=== PATIENT | female | born 1945 | race Caucasian/White ===

== ENCOUNTER → 2018-09-22 15:44 | Outpatient (CLI) | payer MEDICARE, SELFPAY ==
--- NOTE | 2018-09-22 15:55 | XR_ITS ---
XR hand RT min 3V, XR hand LT min 3V HISTORY: Polyarthralgia Hand pain and swelling ORDERING PHYSICIAN: Andrew Monson MD PATIENT AGE: 73 years COMPARISON: Previous left wrist April 2016 TECHNIQUE: Right hand : PA, Oblique & Lateral views right hand Left hand :: PA, Oblique & Lateral leftHand LEFT HAND Degenerative changes are most pronounced at the first carpal-metacarpal joint. There is been progression of degenerative arthritic changes here since 2016... Progressive Hypertrophic changes with additional sclerosis about the narrowed joint space. . Mild progressive Degenerative changes first MCP joint most evident at its lateral/radial aspect.. Minimal Hypertrophic features about along its radial margin. . Mild degenerative changes at the IP joint of thumb again narrowing the lateral aspect as well, no marginal spurring changes from its radial/lateral margin. There are degenerative changes at the fingers involving the DIP joints & PIP joints. DIP joints: Joint space narrowing most pronounced at fifth finger fifth finger. Hypertrophic changes are most notable from dorsal aspect of the second and third DIP joint PIP joints. Arthritic changes over less evident at this level. Mild hypertrophic changes from dorsal aspect of second & third PIP joint... No periarticular erosive changes seen at the left hand. Bones well mineralized Distal radius & ulna appear satisfactory. There is slight progressive calcification this proximal to the triquetrum overlying and towards the triangle fibrocartilage. But I believe positioning/projection accounts for the rotated appearance of the scaphoid on frontal image. . ---IMPRESSION.---Left hand Degenerative arthritic changes left hand have shown slight progression since 2015 left wrist study. ... Most pronounced findings arthritic changes at first carpal-metacarpal joint. .... Mild/moderate Degenerative arthritic changes DIP joints as detailed in text;. & Also mild DJD PIP joint of 2nd & 3rd fingers .... With Mild /moderate arthritic changes lateral aspect of IP joint of thumb & first MCP joint RIGHT HAND No fracture or dislocation. .. Degenerative changes are most notable at first carpal-metacarpal joint. Joint space narrowing and sclerosis with some hypertrophic changes arising from the trapezium about this joint seen particularly on the oblique view. Only scant narrowing and minor marginal osteophyte formation is seen from the radial aspect of the IP joint of thumb and less evident at the first MCP joint. Degenerative arthritic changes at DIP joints-most pronounced posterior hypertrophic buttress seen at second finger/index finger DIP. Also narrowing with trace dorsal spurring/ hypertrophic changes at third DIP joint. The Fourth & fifth PIP joint are fairly well-maintained Mild arthritic changes seen throughout IP joints.. Joint space Narrowing at third DIP joint. Mild hypertrophic changes along the posterior aspect of the second & third PIP joint. . No periarticular erosions are well mineralized. No periarticular osteoporosis likely old fracture ulnar styloid with 5 mm fragment just distal to this area. . ---IMPRESSION---right hand Degenerative arthritic changes Right Hand. ... With Most pronounced arthritic changes at First Carpal Metacarpal Joint. .... Also developing osteoarthritic changes at DIP joints (most notable index and long finger DIP) as well as mild arthritic changes at PIP joints;.. ... Only mild arthritic changes radial aspect first MCP joint & IP joint of thumb here at right hand No. periArticular erosions at either right or left hand.
== END ==
PROVIDERS: PCP Family Medicine; Visit Provider Family Medicine
DX: M25.50 Pain in unspecified joint (principal); M79.641 Pain in right hand; M79.642 Pain in left hand
CPT/HCPCS: 73130

== ENCOUNTER → 2019-03-30 15:16 | Outpatient (CLI) | payer MEDICARE, SELFPAY ==
--- NOTE | 2019-03-30 15:23 | XR_ITS ---
PROCEDURE: XR DEXA AXIAL SKELETON CLINICAL HISTORY: OSTEOPENIA COMPARISON: No exams were available for comparison FINDINGS: L1-L4 density is 1.436 grams/centimeters sq with a T-score of 2.1 Left femoral neck density is 0.780 grams/centimeters sq with a T-score of -1.9. IMPRESSION: Osteopenia with moderate fracture risk. Treatment advised. Suggest follow-up exam March 2021 Dictated by: Rey Dsouza MD 03/30/2019 16:37 Electronically signed by Rey Dsouza MD in [place] 03/30/2019 16:37
== END ==
PROVIDERS: PCP Family Medicine; Visit Provider Family Medicine
DX: M85.89 Other specified disorders of bone density and structure, multiple sites (principal)
CPT/HCPCS: 77080

== ENCOUNTER → 2019-07-03 11:42 | Outpatient (CLI) | payer MEDICARE, SELFPAY ==
--- NOTE | 2019-07-03 11:47 | XR_ITS ---
PROCEDURE: XR KNEE LT 3V CLINICAL INDICATION: LT KNEE PAIN COMPARISON: No exams were available for comparison FINDINGS: Bone density shows mild osteopenia. There is mild narrowing the patellofemoral joint space with small posterior patellar spurs. The other joint spaces are normal. There is no acute fracture or joint effusion. IMPRESSION: Osteopenia. No acute abnormality. Mild arthritic change patellofemoral joint. Dictated by: Stanton Gordon 07/03/2019 12:56 Electronically signed by Stanton Gordon in [place] 07/03/2019 12:56
== END ==
PROVIDERS: PCP Family Medicine; Visit Provider Family Medicine
DX: M25.562 Pain in left knee (principal)
CPT/HCPCS: 73562

== ENCOUNTER → 2019-07-09 12:42 | Outpatient (CLI) | payer MEDICARE, SELFPAY ==
--- NOTE | 2019-07-09 12:45 | MR_ITS ---
PROCEDURE: MR LUMBAR SPINE WO CON CLINICAL INDICATION: LUMBAGO WITH SCIATICA LEFT SIDE, OTHER CHRONIC PAIN Low back pain for years which is worsening, left leg pain and tingling COMPARISON: [id number] XR ribs RT min 3V w CXR1V from 04/27/2018 TECHNIQUE: Standard multiplanar multiecho sequences are performed without contrast. 3-D MIP and myelographic images are also rendered and reviewed FINDINGS: There may be a transitional segment at the lumbosacral junction. This is labeled as L5. Attention should be made to this finding if there is any intervention planned. Review of previous rib detail show 11 sets of normal ribs with possible hypoplastic rib on the right at T12. Spinal cord ends at the T12-L1 level. No acute fracture or dislocation There is lumbar scoliosis convex left with multilevel degenerative disc disease endplate hypertrophic change and facet and ligamentum hypertrophy. L1-L2: Bulging disc slightly eccentric toward the right with minimal right paracentral disc protrusion with right lateral recess and foraminal narrowing. There are type 1 endplate changes at L1-L2 L2-L3: Degenerate disc disease with bulging disc eccentric toward the right with facet ligamentum hypertrophy with bilateral lateral recess and foraminal narrowing. The lateral recess narrowing is slightly more prominent on the right at this level. L3-L4: Degenerate disc disease with bulging disc with severe facet ligamentum hypertrophy with severe left lateral recess and foraminal narrowing and moderate right lateral recess and severe right foraminal narrowing. Type 1 endplate changes at L3-L4 more prominent on the left. There narrowing of the canal at L3-L4 L4-5: Degenerate disc disease. There is 8 mm anterolisthesis of L4 with facet and ligamentum hypertrophy with bilateral lateral recess and foraminal narrowing. L5-S1: Unremarkable. No extruded herniated disc evident. IMPRESSION: 1. Abnormal MRI lumbar spine with lumbar scoliosis convex left with multilevel degenerative disc disease with bulging disc along with facet ligamentum hypertrophy a with bilateral lateral recess and foraminal narrowing. PLEASE SEE ABOVE FOR DETAILED DESCRIPTION AT EACH LEVEL. Endplate changes are present. 2. No herniated disc evident. 3. Transitional segment at the lumbosacral junction labeled as L5. Please correlate accordingly if any intervention is planned. Dictated by: Rey Dsouza MD 07/10/2019 10:06 Electronically signed by Rey Dsouza MD in [place] 07/10/2019 10:06
== END ==
PROVIDERS: PCP Family Medicine; Visit Provider Family Medicine
DX: M54.42 Lumbago with sciatica, left side (principal); G89.29 Other chronic pain
CPT/HCPCS: 72148; 76376

== ENCOUNTER → 2019-08-10 13:48 | Outpatient (POV) | payer MEDICARE, SELFPAY ==
[2019-08-10 14:32] VITALS: BP 149/98; PULSE 87; RESP 18; O2SAT 99; BMI 33.7
--- NOTE | 2019-08-11 09:09 | HMH.PMCON ---
Assessment and Plan (1) Degenerative joint disease (DJD) of lumbar spine Current visit: Yes Status: Chronic Category: Medical Code(s): M47.816 - Spondylosis without myelopathy or radiculopathy, lumbar region (2) Spinal stenosis Current visit: Yes Status: Chronic Qualifiers: Neurogenic claudication status: with neurogenic claudication Category: Medical Code(s): M48.00 - Spinal stenosis, site unspecified - Assessment and plan all Dx Assessment and Plan for all problems:: We will set the patient up for lumbar epidural steroid injection and epidurogram to determine if she is a mild candidate. I gave her information in regards to both procedures. I answered all of her questions. She is not on any anticoagulation therapy. I will follow-up with her after her epidurogram reassess her symptoms at that time she is been instructed to call the office if she has any issues prior to her next appointment. Dr. Araiza has reviewed this note and agrees with this plan of care. This note was dictated using voice recognition software and may contain errors or omissions HPI - Data of Consult Consult date: 08/10/19 Requesting Physician: Milana Campbell APRN Primary Care Provider: Andrew Monson MD - Consult Narrative Reason for consult: Back pain, leg pain History of present illness: Ms. Shelton is a 73 year old female who presented today for consultation for low back and leg pain. Your pain patient has had low back pain for several years. She is had epidurals in the past which were not beneficial for her. She rates her pain 8 out of 10 mostly when she standing and walking is when it increases. She finds herself leaning forward. She does have an MRI showing ligamentum flavum hypertrophy. Patient and I discussed potential mild procedure. Patient is tried and failed chiropractic therapy, physical therapy, epidurals, anti-inflammatories, naproxen, gabapentin. Patient is continuing a home stretching program and is continuing to work. Patient and I discussed an epidurogram. She would like to move forward with this. She is not on any anticoagulation therapy. CC: Milana Campbell APRN [facility] History I have reviewed the patient's past medical history: Yes Medical History: Reports:: Diabetes Mellitus Type 2, Hyperlipidemia, Hypertension Denies:: Gastrointestinal Bleed, Renal Disease, Ulcer *Have you ever received a pneumonia vaccine?: Yes *Have you received a flu vaccine this season?: Yes Other Medical History: Reports: Arthritis Other Surgeries: Yes: Appendectomy, Cholecystectomy, Hernia Repair Amputation: No Fractures: No - *Social History Smoking Status: Never smoker Alcohol Intake: never *Occupational Status:: employed, other Housing: house Household Members: other *Travel in the last 8 weeks: None Family Hx:: Unable to obtain Review of Systems - Review of Systems ROS General: no recent weight change, no fever, no sleep disturbances Respiratory: no cough, no shortness of air, no recurring pulmonary infections Cardiovascular/Peripheral Vascular: No chest pain, No palpitations, no edema, no shortness of breath. Gastrointestinal: no new onset incontinence, normal bowel movements reported Genitourinary: no new onset incontinence Musculoskeletal: Back pain, leg pain Psychiatric: normal mood/ affect Neurological: Bilateral lower extremity weakness when standing, [denies new onset balance issues] Meds Home Medications Medication Instructions Recorded Confirmed Type aspirin 81 mg chewable tablet 81 mg PO DAILY 09/11/18 12/12/18 History calcium carbonate 600 mg(1,500 1 tab PO BID 09/11/18 12/12/18 History mg)-vitamin D3 800 unit chewable tablet cholecalciferol (vitamin D3) 125 5,000 unit PO DAILY 09/11/18 12/12/18 History mcg (5,000 unit) capsule cranberry 500 mg capsule 500 mg PO BID 09/11/18 12/12/18 History metformin 750 mg tablet,extended 750 mg PO QPM 09/11/18 12/12/18 History
== END ==
PROVIDERS: PCP Family Medicine; Visit Provider Clinical Nurse Specialist Family Health
DX: M47.816 Spondylosis without myelopathy or radiculopathy, lumbar region (principal); M48.00 Spinal stenosis, site unspecified; Z79.899 Other long term (current) drug therapy; Z79.82 Long term (current) use of aspirin; Z79.84 Long term (current) use of oral hypoglycemic drugs; Z88.6 Allergy status to analgesic agent
CPT/HCPCS: 99202

== ENCOUNTER → 2019-12-21 11:40 | Outpatient (POV) | payer MEDICARE, SELFPAY ==
--- NOTE | 2019-12-21 12:47 | HMH.PAINSOAP ---
[facility] Pain Management SOAP Note Subjective:: Patient is a pleasant 74-year-old white female who we are treating for low back pain. Patient underwent an epidurogram to determine if she was a candidate for the minimally invasive lumbar decompression. She was not. Patient I had a long discussion in regards to intrathecal therapy she would like to pursue this. Patient rates her pain a 7 out of 10. It is constant. Patient has trouble with activities of daily living. She is tried and failed medications, anti-inflammatories, physical therapy. We had a long discussion regards to intrathecal therapy and the trialing process in the implantation process and realistic goals and expectations. She would like to move forward with this. ROS General: no recent weight change, no fever, no sleep disturbances Respiratory: no cough, no shortness of air, no recurring pulmonary infections Cardiovascular/Peripheral Vascular: No chest pain, No palpitations, no edema, no shortness of breath. Gastrointestinal: no new onset incontinence, normal bowel movements reported Genitourinary: no new onset incontinence Musculoskeletal: Back pain, leg pain Psychiatric: normal mood/ affect, Neurological: [denies new onset weakness in extremities], [denies new onset balance issues] Objective:: Physical Exam General: Alert and oriented x3, no acute distress, pleasant and cooperative, [on room air] Lungs: Resps E/U, Symmetrical chest expansion, Eyes: PERRL Musculoskeletal: Flexion and extension of lumbar spine somewhat guarded secondary to pain, deep tendon reflexes normal, strength in upper and lower extremities [5/5], [abnormal gait noted] Neurological: speech clear, 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 She is not on any anticoagulation therapy. I will follow-up with her afterwards reassess her symptoms at that time she has been instructed to call the office if she has any issues prior to her next appointment. Dr. Araiza has reviewed this note and agrees with this plan of care. This note was dictated using voice recognition software and may contain errors or omissions [facility] History I have reviewed the patient's past medical history: Yes Medical History: Reports:: Diabetes Mellitus Type 2, Hyperlipidemia, Hypertension Denies:: Gastrointestinal Bleed, Renal Disease, Ulcer *Have you ever received a pneumonia vaccine?: No *Have you received a flu vaccine this season?: No Other Medical History: Reports: Arthritis Other Surgeries: Yes: Appendectomy, Cholecystectomy, Hernia Repair Amputation: No Fractures: No - *Social History Smoking Status: Never smoker Alcohol Intake: never *Occupational Status:: unemployed Housing: house Household Members: other *Travel in the last 8 weeks: None Family Hx:: Unable to obtain
[2019-12-21 12:48] VITALS: BP 140/71; PULSE 95; RESP 18; O2SAT 98; BMI 35.7
== END ==
PROVIDERS: PCP Family Medicine; Visit Provider Clinical Nurse Specialist Family Health
DX: M51.16 Intervertebral disc disorders with radiculopathy, lumbar region (principal); M48.062 Spinal stenosis, lumbar region with neurogenic claudication
CPT/HCPCS: 99212

== ENCOUNTER 2020-03-16 16:47 | Emergency (ER) | payer MEDICARE, SELFPAY ==
--- NOTE | 2020-03-16 17:04 | XR_ITS ---
PROCEDURE: XR FOOT LT MIN 3V CLINICAL INDICATION: PAIN COMPARISON: No exams were available for comparison FINDINGS: No fracture or dislocation. No lytic or blastic change. There is normal mineralization. There are moderate to severe osteoarthritic changes at the 1st metatarsal tarsal joint with bony hypertrophy. Other findings:None. IMPRESSION: Osteoarthritic change 1st metatarsal tarsal joint Dictated by: Rey Dsouza MD 03/16/2020 18:22 Rey Dsouza MD in [place] 03/16/2020 18:22
[2020-03-16 17:05] VITALS: BP 145/89; PULSE 80; RESP 19; TEMP 36.7; O2SAT 98; BMI 33.4
--- NOTE | 2020-03-16 17:35 | HMH.EDUTC ---
[facility] [place] Impression: Achilles tendinitis Qualifiers: Laterality: left Qualified Code(s): M76.62 - Achilles tendinitis, left leg Disposition: Home, Self-Care Condition on Discharge: Good Instructions: Tendonitis (Alternative Therapy), DI for Tendinitis Additional Instructions: Wear boot and use Walker to walk Call tomorrow and make appointment with your Syrup Maker for further examination and treatment Return if needed Straight to ER if any life threatening symptoms You was given SoluMedrol shot in the [facility] this may make your blood sugar elevated for the next couple of days then it should return to normal Follow up with Family Doctor if no improvement or any worsening of symptoms Call back to [facility] later this evening for official reading of your xray Referrals: Andrew Monson MD [Primary Care Provider] - As needed Odalis Chacon DPM [Staff Physician] - Time of Disposition: 17:51 Medical Decision Making - [place] Inquiry Pt receiving controlled substance: No [place] was queried for this patient: No Vital Signs: 03/16/20 17:05 Temperature 98.1 F Temperature Source Oral Pulse Rate [Radial] 80 Respiratory Rate 19 Blood Pressure [Right Arm] 145/89 H Blood Pressure Mean [Right Arm] 107 Blood Pressure Source [Right Arm] Automatic Cuff Blood Pressure Position [Right Arm] Sitting 02 Sat by Pulse Oximetry 98 Oxygen Delivery Method Room Air Orders (Tests/Meds): ED MEDICATIONS Discontinued Medications Generic Name Dose Route Start Last Admin Trade Name Freq PRN Reason Stop Dose Admin Methylprednisolone Sodium Succinate 125 mg 03/16/20 17:54 03/16/20 17:54 Solu-Medrol 125mg/2ml Vial IM 03/16/20 17:55 125 mg ONCE ONE Administration ORDERS Category Date Time Status XR foot LT min 3V Stat Exams 03/16/20 17:04 Taken - Radiology Data #1 Image(s): Foot/Toes Image Reviewed: Yes I reviewed the patient's radiology image Preliminary Findings: No Fracture Seen No acute fracture, old healing fracture of 1st metatarsal, heel spur noted will place in boot and have patient follow up with Podiatry [facility] [place] - General Stated complaint: Pain L Foot Time Seen by Provider: 03/16/20 17:40 Mode of Arrival: Wheelchair Source of Information: Patient Limitations: No Limitations Description of Symptoms (Recalled from Triage Doc. by RN): left foot pain x 2 days HEENT Symptoms (Recalled from RN notes): No Resp Symptoms (Recalled from RN notes): No Skin Symptoms (Recalled from RN notes): No MS Symptoms (Recalled from RN notes): Yes Functional Status (Recalled from RN notes): wnl - History of Present Illness Provider Complaint: Patient states that she has been having pain in the heal of her foot that certain ways she moves it shoots pain in her heel area and up her leg States that she hasnt done anything that she is aware of to hurt it States that pain started about 2 days and has continued to get worse - Related Data Home Medications Medication Instructions Recorded Confirmed aspirin 81 mg chewable tablet 81 mg PO DAILY 09/11/18 12/12/18 calcium carbonate 600 mg(1,500 1 tab PO BID 09/11/18 12/12/18 mg)-vitamin D3 800 unit chewable tablet cholecalciferol (vitamin D3) 125 5,000 unit PO DAILY 09/11/18 12/12/18 mcg (5,000 unit) capsule cranberry 500 mg capsule 500 mg PO BID 09/11/18 12/12/18 metformin 750 mg tablet,extended 750 mg PO QPM 09/11/18 12/12/18 release 24 hr simvastatin 20 mg tablet 20 mg PO QHS 09/11/18 12/12/18 irbesartan 150 mg tablet 150 mg PO DAILY 12/12/18 12/12/18 Previous Rx's Medication Instructions Recorded amoxicillin 500 mg capsule 500 mg PO Q12H 10 Days #20 cap 12/12/18 Allergies Allergy/AdvReac Type Severity Reaction Status Date / Time codeine [CODEINE] Allergy Unknown NA-NAUSEA/V Verified 12/12/18 17:02 OMITING - Worker's Comp Is this a Worker's Comp case?: No [facility] History - Hepatitis A Screen Drug use history?: No H
[2020-03-16 18:51] VITALS: BP 145/89; PULSE 80; RESP 19; TEMP 36.7; O2SAT 98
== END 2020-03-16 18:53 | disposition home or self-care (01) ==
PROVIDERS: Emergency Provider Nurse Practitioner; PCP Family Medicine
DX: M76.62 Achilles tendinitis, left leg (principal); E11.9 Type 2 diabetes mellitus without complications; E78.5 Hyperlipidemia, unspecified; I10 Essential (primary) hypertension; Z88.5 Allergy status to narcotic agent; Z79.84 Long term (current) use of oral hypoglycemic drugs; Z79.899 Other long term (current) drug therapy; Z90.49 Acquired absence of other specified parts of digestive tract
CPT/HCPCS: 29515; G0463; 73630; 96372; 99202; 99203

== ENCOUNTER → 2020-04-11 15:16 | Outpatient (CLI) | payer MEDICARE, SELFPAY ==
--- NOTE | 2020-04-11 15:20 | MR_ITS ---
PROCEDURE: MR ANKLE LT WO CON CLINICAL INDICATION: RUPTURE OF PT TENDON ANKLE INSTABILITY. UNABLE TO STAND. MEDIAL SIDED KNEE PAIN WITH SWELLING. [id number] NO INJURY. PRIOR X-RAY 03-16-20 COMPARISON: CR XR FOOT LT MIN 3V from 03/16/2020 TECHNIQUE: Routine multiplanar multi echo sequences are performed without gadolinium enhancement. FINDINGS: The tibiofibular syndesmosis appears intact. The anterior tibiofibular tendon appears intact. There is thinning of the ATFL suggesting an incomplete or partial tear.. There is somewhat irregular appearance of the PT FL is well suggesting at least a partial tear. The deltoid ligament appears intact. There is a small area of increased subcortical signal intensity in the talar dome laterally. There is a bony fragment along the posterior and lateral aspect of the distal tibia. This fragment measures 5 mm and may represent an old fracture. The posterior tibialis, flexor digitorum longus, and flexor hallucis longus tendons appear intact. There is some thickening with slight increased signal intensity and ill definition of the peroneus longus and brevis tendon just distal to the lateral malleolar region with thinning of these tendons distally. There is a curvilinear area of increased T2 signal within the peroneus brevis tendon at the tip of the distal fibula where there is an osteophyte suggesting a partial intrasubstance tear. The Achilles tendon appears intact. The anterior extensor tendons appear intact. There are some subchondral cystic changes involving the inferior surface of the talus at the sinus tarsi region. Are osteoarthritic changes of the 1st metacarpal-carpal joint and the talonavicular joint as well as calcaneocuboid joint. Mild osteoarthritic changes are present involving the anterior subtalar joint. There is pes planus IMPRESSION: 1. Thinning of the ATFL suggesting sprain or partial tear with irregular appearance of the PT FL suggesting a tear. 2. The posterior tibialis tendon appears intact. 3. There is thickening of the peroneus longus and brevis at the retro malleolar groove in distal to the tip of the fibula with curvilinear increased T2 signal within the peroneus brevis consistent with partial tear of the tendon. There is thinning with increased T2 signal of the distal aspect of the peroneus longus and may be due to partial tear versus tendinopathy/tendinosis. 4. Osteoarthritic changes of the midfoot as described above Dictated by: Rey Dsouza MD 04/15/2020 16:23 Rey Dsouza MD in [place] 04/15/2020 16:23
== END ==
PROVIDERS: PCP Family Medicine; Visit Provider Podiatrist
DX: M66.862 Spontaneous rupture of other tendons, left lower leg (principal)
CPT/HCPCS: 73721

== ENCOUNTER → 2021-05-27 11:19 | Outpatient (CLI) | payer MEDICARE, SELFPAY | PROVIDERS: PCP Family Medicine; Visit Provider Nurse Practitioner Family | DX: Z20.822 Contact with and (suspected) exposure to COVID-19 (principal) | CPT/HCPCS: C9803; U0003; U0005 ==

== ENCOUNTER 2021-06-27 11:28 | Emergency (ER) | payer MEDICARE, SELFPAY ==
[2021-06-27 11:30] VITALS: BP 184/97; PULSE 96; RESP 21; TEMP 37.2; O2SAT 96; BMI 39.2
[2021-06-27 12:07] LABS: UTC Influenza A Antigen Negative (Negative); UTC Influenza B Antigen Negative (Negative)
--- NOTE | 2021-06-27 12:14 | HMH.EDUTC ---
[facility] [place] Disposition Clinical Impression: Bronchitis Sinusitis Qualifiers: Sinusitis location: unspecified location Chronicity: unspecified Qualified Code(s): J32.9 - Chronic sinusitis, unspecified Disposition: Home, Self-Care Condition on Discharge: Good Instructions: Sinusitis, Acute Bronchitis, DI for Sinusitis, Azithromycin Additional Instructions: ? Start antibiotic today. Be sure to complete entire prescription even if feeling better ? Monitor temp. Tylenol every 4 hours as needed and / or ibuprofen every 6 hours as needed ( As long as your primary care physician has told you that it ok to take both. For fever/aches/pains ER if no less than 101 despite Tylenol or Motrin ? Humidifier/vaporizer or hot steamy shower ? Inhaler every 4-6 hours as needed like we discussed. If unsure how to use it, ask pharmacist to demonstrate how. Should help open airways and improve cough, wheezing, and shortness of breath *Tessalon Perles will not cause drowsiness but use at bedtime to help stop cough so that you may get some rest. Follow up IMMEDIATELY for new or worsening of symptoms OR no noticeable improvement over the next 48-72 hours. 911 immediately for any life threatening symptoms such as chest pain or difficulty breathing Prescriptions: Albuterol Sulfate [Proventil-HFA 90mcg/puff Inh] 1 - 2 puffs IH Q6HP PRN #1 each PRN Reason: Shortness Of Breath Transmission Status: Received by [facility] Benzonatate [Benzonatate 100mg cap] 100 mg PO Q8HP PRN #15 cap PRN Reason: Cough Transmission Status: Received by [facility] Azithromycin [Z-Camilo 250mg Tab] 250 mg PO DIRECTED #6 tab Transmission Status: Received by [facility] Referrals: Andrew Monson MD [Primary Care Provider] - As needed Time of Disposition: 12:54 Medical Decision Making - Chencho Inquiry Pt receiving controlled substance: No Chencho was queried for this patient: No Vital Signs: 06/27/21 11:30 06/27/21 12:43 Temperature 98.9 F 98.9 F Temperature Source Oral Pulse Rate 96 H Pulse Rate [Right Brachial] 96 H Respiratory Rate 21 Blood Pressure 184/97 H Blood Pressure [Right Arm] 184/97 H Blood Pressure Mean [Right Arm] 126 Blood Pressure Source [Right Arm] Automatic Cuff Blood Pressure Position [Right Arm] Sitting 02 Sat by Pulse Oximetry 96 Oxygen Delivery Method Room Air - Lab Data Lab results reviewed: Yes: I reviewed the patient's lab results. Lab Results 06/27/21 11:49: Influenza Type A Ag Negative, Influenza Type B Ag Negative Orders (Tests/Meds): ED MEDICATIONS Discontinued Medications Generic Name Dose Route Start Last Admin Trade Name Jaswant PRN Reason Stop Dose Admin Ceftriaxone Sodium 1 gm 06/27/21 12:24 06/27/21 12:43 Ceftriaxone 1gm Vial IM 06/27/21 12:25 1 gm ONCE ONE Administration Lidocaine HCl 0 ml 06/27/21 12:24 06/27/21 12:43 Lidocaine 1% 5ml Pf Vial IM 06/27/21 12:25 2 ml ONCE ONE Administration Methylprednisolone Sodium Succinate 125 mg 06/27/21 12:24 06/27/21 12:42 Methylprednisolone Sod Succ 125mg Vial IM 06/27/21 12:25 125 mg ONCE ONE Administration ORDERS Category Date Time Status Covid-19 Nasal PCR ([facility]) Routine Lab 06/27/21 11:49 Ordered Medical Decision Narrative: Patient states that she has taken both azithromycin and Solumedrol in the past without complications or interactions [facility] [place] HPI - General Stated complaint: soa, h/a, congestion, cough, diarrhea Time Seen by Provider: 06/27/21 12:15 Mode of Arrival: Ambulatory Source of Information: Patient Limitations: No Limitations Description of Symptoms (Recalled from Triage Doc. by RN): PATIENT C/O PRODUCTIVE COUGH, CONGESTION, AND HEADACHE SINCE SATURDAY HEENT Symptoms (Recalled from RN notes): Yes Resp Symptoms (Recalled from RN notes): Yes Skin Symptoms (Recalled from RN notes): No MS Symptoms (Recalled from RN notes): No Functional Status (Recalled from RN notes):
[2021-06-27 12:43] VITALS: BP 184/97; PULSE 96; RESP 21; TEMP 37.2; O2SAT 96
== END 2021-06-27 12:54 | disposition home or self-care (01) ==
PROVIDERS: Emergency Provider Nurse Practitioner; PCP Family Medicine
DX: J20.9 Acute bronchitis, unspecified (principal); J32.9 Chronic sinusitis, unspecified; E11.9 Type 2 diabetes mellitus without complications; E78.5 Hyperlipidemia, unspecified; I10 Essential (primary) hypertension; Z20.822 Contact with and (suspected) exposure to COVID-19
CPT/HCPCS: 87804; 96372; 99202; C9803; G0463; U0003; U0005

== ENCOUNTER → 2021-08-09 14:08 | Outpatient (CLI) | payer MEDICARE, SELFPAY ==
--- NOTE | 2021-08-09 14:14 | US_ITS ---
FINAL REPORT CLINICAL HISTORY: POSTMENOPAUSAL VAGINAL BLEEDING FINDINGS: Transvaginal sonographic images of the pelvis were obtained. The uterus measures 10.7 x 4.7 x 6.5 cm. The endometrium measures 3 cm, which is markedly thickened. An endometrial mass is not excluded. No uterine mass is identified. The right ovary measures 2 cm cm in length and left ovary measures 1.9 cm cm in length. Normal blood flow seen to the ovaries. There is no evidence of free fluid. No adnexal mass is identified. IMPRESSION: Markedly thickened endometrium. An endometrial mass is not excluded. Reviewed, Interpreted and Dictated by Goyo Alberto III, MD Transcribed by Aliyah Bell Authenticated by Goyo Alberto III, MD on 08/09/2021 04:07:[address] [facility]
== END ==
PROVIDERS: PCP Family Medicine; Visit Provider Family Medicine
DX: N95.0 Postmenopausal bleeding (principal)
CPT/HCPCS: 76830

== ENCOUNTER 2021-08-11 01:32 | Emergency (ER) | payer MEDICARE, SELFPAY ==
[2021-08-11 01:33] VITALS: BP 178/88; PULSE 69; RESP 18; TEMP 36.9; O2SAT 99; BMI 36.5
[2021-08-11 01:34] VITALS: BMI 36.5
--- NOTE | 2021-08-11 01:39 | ECG_ITS ---
APPROVED REPORT Exam: Resting ECG HR:77 bpm ECG Measurements Heart Rate 77 AXES TN 161 P 59 QRSd 101 QRS 41 QT 384 T 52 QTc 416 Conclusion SINUS RHYTHM NORMAL ECG UNCONFIRMED REPORT Electronically signed by : Solomon Collins MD 08/11/2021 09:37:10
[2021-08-11 01:46] LABS: Basophils # 0.1 K/mm3 (0-0.2); Eosinophils # 0.3 K/mm3 (0.0-0.4); Eosinophils % 3.9 % (0.1-12.0); Hematocrit 39.2 % (37.0-47.0); Hemoglobin 12.6 g/dL (12.2-16.2); Lymphocytes # 4.2 K/mm3 (0.7-4.5); Lymphocytes % 47.7 % (10-50); Mean Corpuscular HGB Conc 32.1 g/dL (31.8-35.4); Mean Corpuscular Hemoglobin 30.1 pg (27.0-31.2); Mean Corpuscular Volume 93.8 fl (81-99); Mean Platelet Volume 7.4 fl (7.4-10.4); Monocytes # 0.4 K/mm3 (0.1-1.0); Monocytes % 4.3 % (1.7-9.3); Neutrophils # 3.8 K/mm3 (1.8-7.8); Neutrophils % 43.1 % (37.0-80.0); Platelet Count 368 K/mm3 (142-424); Red Blood Count 4.18 M/mm3 (4.20-5.40); Red Cell Distribution Width 14.8 % (11.5-17.5); White Blood Count 8.8 K/mm3 (4.8-10.8)
[2021-08-11 01:56] LABS: Alanine Aminotransferase 37 U/L (12-78); Albumin Level 4.4 g/dl (3.5-5.0); Albumin/Globulin Ratio 1.6 (1.1-1.8); Alkaline Phosphatase 74 U/L (38-126); Anion Gap 13.4 mEq/L (5-15); Aspartate Amino Transferase 42 U/L (14-36); Bilirubin,Total 0.4 mg/dl (0.2-1.3); Blood Urea Nitrogen 21 mg/dl (7-17); Calcium 9.6 mg/dl (8.4-10.2); Carbon Dioxide 26 mmol/L (22.0-30.0); Chloride 101 mmol/L (98-107); Creatinine Clearance Estimated 86 mL/min (50-200); Estimated Glomerular Filt Rate 61 ml/min (>60); GFR (African American) 74 ML/MIN (>60); Globulin 2.8 g/dL (1.3-3.2); Glucose 141 mg/dl (74-100); Potassium 4.4 mmoL/L (3.5-5.1); Sodium 136 mmol/L (136-145); Total Protein,Serum 7.2 g/dl (6.3-8.2)
[2021-08-11 02:45] LABS: INR 1.04 (0.9-1.1); Prothrombin Time 11.7 seconds (10.1-12.5)
--- NOTE | 2021-08-11 03:02 | HMH.EDUROGF ---
ED Disposition Clinical Impression: Dysfunctional uterine bleeding Disposition: Home, Self-Care Condition on Discharge: Good Instructions: DI for Vaginal Bleeding Additional Instructions: will give trial of meds Prescriptions: Medroxyprogesterone Acetate [Provera] 20 mg PO DAILY #8 tab Transmission Status: Pending to [facility] Referrals: Andrew Monson MD [Primary Care Provider] - - Critical Care Critical Care Time: No Attestation: On 08/11/21, the high probability of a clinically significant, sudden or life threatening deterioration of the following system(s) required my full and direct attention, intervention and personal management. The time I documented below is in addition to time spent performing reported procedures but includes the following listed in this critical care notation. Medical Decision Making - Medical Records Medical records reviewed: Yes: I reviewed the patient's medical records. - Chencho Inquiry Pt receiving controlled substance: No Vital Signs: 08/11/21 01:33 Temperature 98.4 F Temperature Source Oral Pulse Rate [Right] 69 Respiratory Rate 18 Blood Pressure [Right Arm] 178/88 H Blood Pressure Mean [Right Arm] 118 02 Sat by Pulse Oximetry 99 - Lab Data Lab results reviewed: Yes: I reviewed the patient's lab results. Lab Results 08/11/21 01:36: WBC 8.8, RBC 4.18 L, Hgb 12.6, Hct 39.2, MCV 93.8, MCH 30.1, MCHC 32.1, RDW 14.8, Plt Count 368, MPV 7.4, Neut % (Auto) 43.1, Lymph % (Auto) 47.7, Moore % (Auto) 4.3, Eos % (Auto) 3.9, Baso % (Auto) 1.0, Neut # (Auto) 3.8, Lymph # (Auto) 4.2, Moore # (Auto) 0.4, Eos # (Auto) 0.3, Baso # (Auto) 0.1 08/11/21 01:36: Sodium 136, Potassium 4.4, Chloride 101, Carbon Dioxide 26, Anion Gap 13.4, BUN 21 H, Creatinine 0.90, Estimated Creat Clear 86, Estimated GFR 61, Est GFR ( Amer) 74, Glucose 141 H, Calcium 9.6, Total Bilirubin 0.4, AST 42 H, ALT 37, Alkaline Phosphatase 74, Total Protein 7.2, Albumin 4.4, Globulin 2.8, Albumin/Globulin Ratio 1.6 08/11/21 01:36: PT 11.7, INR 1.04 Result diagrams: 08/11/21 01:36 08/11/21 01:36 Orders (Tests/Meds): ED MEDICATIONS Generic Name Dose Route Start Last Admin Trade Name Freq PRN Reason Stop Dose Admin Sodium Chloride 1,000 mls @ 999 mls/hr 08/11/21 01:45 08/11/21 02:06 Sod Chlor 0.9% 1000ml Bag IV 08/11/21 02:45 999 mls/hr .Q1H1M VESTA Administration Sodium Chloride 1,000 mls @ 999 mls/hr 08/11/21 01:45 08/11/21 02:06 Sod Chlor 0.9% 1000ml Bag IV 08/11/21 02:45 Not Given .Q1H1M VESTA Discontinued Medications Generic Name Dose Route Start Last Admin Trade Name Freq PRN Reason Stop Dose Admin Medroxyprogesterone Acetate 20 mg 08/11/21 03:50 Medroxyprogesterone Acetate 2.5mg Tablet PO 08/11/21 03:51 ONCE ONE - Physician Consults Physician Consulted: nancy Reason -: Pt condition Medical Decision Narrative: has dub with abn u/s and has pending monument setter helper appt - has stable labs and vital signs Female Urogenital HPI - General Chief complaint: Vaginal Bleeding Stated complaint: VAGINAL BLEEDING Time Seen by Provider: 08/11/21 02:00 Mode of Arrival: EMS Source of Information: Patient, EMS, Medical Record Limitations: No Limitations Description of Symptoms (Recalled from ER Triage Doc. by RN): pt stated have vaginal bleeding that started saturday and seen pcp. pt scheduled with on saturday with a PHOTOGRAMMETRIC COMPILATION SPECIALIST at for a biopsy - History of Present Illness HPI Narrative: pt with vaginal bleeding this week and saw pcp with abn u/s and has pending appt with on saturday - had bleeding this pm - no syncope MD Complaint: vaginal bleeding Onset (ago): day(s) Severity: moderate : No Associated symptoms: denies other symptoms - Related Data Home Medications Medication Instructions Recorded Confirmed aspirin 81 mg chewable tablet 81 mg PO DAILY 09/11/18 08/11/21 calcium carbonate 600 mg-vitamin 1 tab PO BID 09/11/18 08/11/21 D3 20 mcg
--- NOTE | 2021-08-11 03:46 | PC.NURSE ---
marie on phone with dr cruz @ this time
[2021-08-11 04:16] VITALS: BP 145/80; PULSE 68; RESP 18; TEMP 36.9; O2SAT 99
== END 2021-08-11 04:25 | disposition home or self-care (01) ==
PROVIDERS: Emergency Provider Emergency Medicine; PCP Family Medicine
DX: N93.8 Other specified abnormal uterine and vaginal bleeding (principal); I10 Essential (primary) hypertension; E78.5 Hyperlipidemia, unspecified
CPT/HCPCS: 80053; 85025; 85610; 93005; 96365; 99283

== ENCOUNTER → 2021-10-06 13:25 | Outpatient (CLI) | payer MEDICARE, SELFPAY ==
--- NOTE | 2021-10-06 13:30 | CA_ITS ---
APPROVED REPORT EXAM: Comprehensive 2D, Doppler, and color-flow Echocardiogram Agitator Operator: Shabana Jackman, RT(R) Ht: 5 ft 9 in Wt: 232lbs BSA: 2.20 BP: 178/88 mmHg Indications: HTN, DM, ZAMORA, hyperlipidemia, patient will be starting chemo and radiation for malignancy, abn EKG post op. 2D Dimensions LVOT 2.02 cm (M/F) 1.5-2.5 LA Volume 48.00 mL LA Volume Index 21.81 mL/m2 (M/F) 16-34 M-Mode Dimensions RVDd 2.20 cm (0.9-2.6) LA Diam 3.83 cm (1.9-4.0) LVDd 4.51 cm (3.5-5.7) Ao Diam 2.62 cm (2.0-3.7) LVDs 3.37 cm (3.5-5.7) IVSd 1.29 cm (0.6-1.1) PWd 0.95 cm (0.6-1.1) EF (Teich) 50.10% FS 25.30% EDV (Teich) 92.90 mL ESV (Teich) 46.40 mL LV Diastology E Decel Time 193.00 (160-240 msec) E/A Ratio 0.6 MED E' 10.90 (< 7 cm/sec) E'/MED E' Ratio 4.28 (>14) LAT E' 11.00 (<10 cm/sec) E/LAT E' Ratio 4.24 (>14) Mitral Valve MV E Max Ed. 47.00 (40-130 cm/s) MV A Velocity 84.00 (40-130 cm/s) E/A Ratio 0.55 MV Decel. Time 193.00 (160-240 ms) MV PHT 57.00 ms Tricuspid Valve TR P. Velocity 199.00 cm/s RAP Estimate 10.00 mmHg RVSP 25.80 mmHg Left Ventricle Left atrium is mildly enlarged, left ventricle normal size, mild concentric left ventricular hypertrophy, estimated ejection fraction 55% with no regional wall motion abnormality, grade 1 diastolic dysfunction seen without tissue Doppler evidence of raise left atrial pressure. Right Ventricle Right atrium and right ventricle are normal size and contractility. Aortic Valve Aortic valve is minimally thickened and fibrosed, there is no aortic stenosis, there is mild aortic insufficiency. Mitral Valve Mitral valve grossly normal, there is trace mitral regurgitation. Tricuspid Valve Tricuspid valve grossly normal, there is trace tricuspid regurgitation, tricuspid regurgitation jet velocity is inadequate for calculation of the right ventricular systolic pressure. Pulmonic Valve Pulmonic valve is poorly visualized. Great Vessels Aortic root is normal size. Inferior vena cava is normal size with normal inspiratory collapse. Pericardium No significant pericardial effusion noted. Conclusion 1. Mildly enlarged left abnormal normal left ventricular size, mild concentric left ventricular hypertrophy, visually estimated ejection fraction 55% with no regional wall motion abnormalities grade 1 diastolic dysfunction seen without tissue Doppler evidence of raise left atrial pressure. 2. Mild aortic, trace mitral and tricuspid regurgitation. 3. No significant pericardial effusion. 4. Inferior vena cava is normal size with normal inspiratory collapse. Electronically signed by : Elio Mast MD 10/06/2021 16:03:16
== END ==
PROVIDERS: PCP Family Medicine; Visit Provider Family Medicine
DX: I10 Essential (primary) hypertension (principal); R94.31 Abnormal electrocardiogram [ECG] [EKG]
CPT/HCPCS: 93306

== ENCOUNTER → 2021-10-12 12:47 | Outpatient (CLI) | payer MEDICARE, SELFPAY ==
--- NOTE | 2021-10-12 12:49 | MM_ITS ---
PROCEDURE INFORMATION: Exam: MG Bilateral Screening 3D Mammography Exam date and time: 10/12/2021 12:55 PM Age: 76 years old Clinical indication: Screening examination TECHNIQUE: Imaging protocol: Bilateral Screening tomosynthesis and 2D mammography including computer-aided detection (CAD) when performed. COMPARISON: 1. MG DMSB DIG MAMM-SCREEN LYDIA W/CAD 04/25/2017 4:51 PM 2. MG DMSB DIG MAMM-SCREEN LYDIA 05/04/2015 3:21 PM FINDINGS: MAMMOGRAPHY: Breast composition: The breast tissue is composed of scattered areas of fibroglandular density. Mass: 0.7 cm lobulated mass in the middle third of the right upper outer quadrant. Questionable 0.5 cm mass in the posterior third of the right approximate 12 o'clock axis Architectural distortion: None. Calcifications: No suspicious calcifications. Asymmetric density: None. Skin thickening: None. Axillary adenopathy: None. IMPRESSION: Patient to be recalled for spot compression views of the right breast in the CC and MLO projections, a full 90 degree lateral view, and right breast ultrasound for further evaluation of 2 right breast masses. ASSESSMENT: BI-RADS Category 0: Incomplete- Need Additional Imaging Evaluation and/or Prior Mammograms for Comparison
== END ==
PROVIDERS: PCP Family Medicine; Visit Provider Obstetrics & Gynecology Gynecologic Oncology
DX: Z12.31 Encounter for screening mammogram for malignant neoplasm of breast (principal)
CPT/HCPCS: 77063; 77067

== ENCOUNTER → 2021-10-20 14:36 | Outpatient (CLI) | payer MEDICARE, SELFPAY ==
--- NOTE | 2021-10-20 14:40 | MM_ITS ---
PROCEDURE INFORMATION: Exam: US Right Breast, Complete MG Right Diagnostic Breast Tomosynthesis Exam date and time: 10/20/2021 2:42 PM Age: 76 years old Clinical indication: Patient recalled on the basis of a screening mammogram for further evaluation; Right breast; Mass TECHNIQUE: Imaging protocol: Complete ultrasound of all four quadrants of the Right breast and the retroareolar regions, including ultrasound of the axilla when performed. Right Diagnostic tomosynthesis and 2D mammography including computer-aided detection (CAD) when performed. Unilateral or bilateral exam. COMPARISON: 1. MG MM DIG SCREENING MAMM BI W/CAD 10/12/2021 12:55 PM FINDINGS: MAMMOGRAPHY: Digital diagnostic spot compression views of the right breast demonstrate a persistent lobulated 0.7 cm mass in the upper outer quadrant. Questionable 0.5 cm mass in the posterior third of the right 12 o'clock axis does not persist on spot compression views. ULTRASOUND: Sonographic images of the right breast including the retroareolar region, all 4 quadrants and the axilla demonstrates a subcutaneous mixed solid and cystic mass measuring 0.6 x 0.4 x 0.5 cm in the 9 o'clock axis 8 cm from the nipple. This appears to most closely correspond to the lobulated mass on mammography. The finding likely represents a cluster of micro cysts. Few additional subcentimeter cysts are scattered in the right breast. No architectural distortion or acoustical shadowing. No skin thickening or axillary adenopathy. IMPRESSION: Probably benign cluster of cysts in the right 9 o'clock axis corresponding to a lobulated superficial mass on mammography. A six-month follow-up diagnostic right mammogram and targeted right breast ultrasound are recommended to ensure stability over time unless otherwise clinically indicated. ASSESSMENT: BI-RADS Category 3: Probably benign
== END ==
PROVIDERS: PCP Family Medicine; Visit Provider Family Medicine
DX: R92.8 Other abnormal and inconclusive findings on diagnostic imaging of breast (principal)
CPT/HCPCS: 76641; 77061; 77065; G0279

== ENCOUNTER → 2021-10-30 09:38 | Outpatient (CLI) | payer MEDICARE, SELFPAY ==
[2021-10-30 10:05] LABS: Basophils # 0.1 K/mm3 (0-0.2); Basophils % 0.8 % (0.1-2.0); Eosinophils # 0.2 K/mm3 (0.0-0.4); Eosinophils % 3.6 % (0.1-12.0); Hematocrit 37.4 % (37.0-47.0); Hemoglobin 12.4 g/dL (12.2-16.2); Lymphocytes # 1.6 K/mm3 (0.7-4.5); Lymphocytes % 27.2 % (10-50); Mean Corpuscular HGB Conc 33.1 g/dL (31.8-35.4); Mean Corpuscular Hemoglobin 29.7 pg (27.0-31.2); Mean Corpuscular Volume 89.9 fl (81-99); Mean Platelet Volume 7.1 fl (7.4-10.4); Monocytes # 0.1 K/mm3 (0.1-1.0); Monocytes % 1.9 % (1.7-9.3); Neutrophils % 66.4 % (37.0-80.0); Platelet Count 419 K/mm3 (142-424); Red Blood Count 4.16 M/mm3 (4.20-5.40); Red Cell Distribution Width 13.5 % (11.5-17.5)
[2021-10-30 10:07] LABS: Chloride 102 mmol/L (98-107); Potassium 4.4 mmoL/L (3.5-5.1); Sodium 135 mmol/L (136-145)
[2021-10-30 10:10] LABS: Alanine Aminotransferase 45 U/L (12-78); Albumin Level 4.1 g/dl (3.5-5.0); Albumin/Globulin Ratio 1.5 (1.1-1.8); Alkaline Phosphatase 72 U/L (38-126); Anion Gap 14.4 mEq/L (5-15); Aspartate Amino Transferase 50 U/L (14-36); Bilirubin,Total 0.5 mg/dl (0.2-1.3); Blood Urea Nitrogen 17 mg/dl (7-17); Calcium 9.2 mg/dl (8.4-10.2); Carbon Dioxide 23 mmol/L (22.0-30.0); Estimated Glomerular Filt Rate 82 ml/min (>60); GFR (African American) 99 ML/MIN (>60); Globulin 2.7 g/dL (1.3-3.2); Glucose 164 mg/dl (74-100); Total Protein,Serum 6.8 g/dl (6.3-8.2)
== END ==
PROVIDERS: Visit Provider Obstetrics & Gynecology Gynecologic Oncology
DX: C54.1 Malignant neoplasm of endometrium (principal)
CPT/HCPCS: 36415; 80053; 85025

== ENCOUNTER → 2021-11-06 10:03 | Outpatient (CLI) | payer MEDICARE, SELFPAY ==
[2021-11-06 10:43] LABS: Basophils # 0.1 K/mm3 (0-0.2); Basophils % 2.6 % (0.1-2.0); Eosinophils # 0.1 K/mm3 (0.0-0.4); Eosinophils % 2.7 % (0.1-12.0); Hematocrit 35.4 % (37.0-47.0); Hemoglobin 11.7 g/dL (12.2-16.2); Lymphocytes # 2.1 K/mm3 (0.7-4.5); Lymphocytes % 48.9 % (10-50); Mean Corpuscular HGB Conc 32.9 g/dL (31.8-35.4); Mean Corpuscular Hemoglobin 30.8 pg (27.0-31.2); Mean Corpuscular Volume 93.6 fl (81-99); Mean Platelet Volume 7.7 fl (7.4-10.4); Monocytes # 0.3 K/mm3 (0.1-1.0); Monocytes % 8.1 % (1.7-9.3); Neutrophils # 1.6 K/mm3 (1.8-7.8); Neutrophils % 37.6 % (37.0-80.0); Platelet Count 430 K/mm3 (142-424); Red Blood Count 3.79 M/mm3 (4.20-5.40); Red Cell Distribution Width 14.7 % (11.5-17.5); White Blood Count 4.2 K/mm3 (4.8-10.8)
[2021-11-06 11:27] LABS: Alanine Aminotransferase 42 U/L (12-78); Albumin/Globulin Ratio 1.7 (1.1-1.8); Alkaline Phosphatase 87 U/L (38-126); Anion Gap 15.4 mEq/L (5-15); Aspartate Amino Transferase 35 U/L (14-36); Bilirubin,Total 0.4 mg/dl (0.2-1.3); Blood Urea Nitrogen 15 mg/dl (7-17); Calcium 9.2 mg/dl (8.4-10.2); Carbon Dioxide 25 mmol/L (22.0-30.0); Chloride 101 mmol/L (98-107); Estimated Glomerular Filt Rate 121 ml/min (>60); GFR (African American) 146 ML/MIN (>60); Globulin 2.4 g/dL (1.3-3.2); Glucose 144 mg/dl (74-100); Potassium 4.4 mmoL/L (3.5-5.1); Sodium 137 mmol/L (136-145); Total Protein,Serum 6.4 g/dl (6.3-8.2)
== END ==
PROVIDERS: PCP Family Medicine; Visit Provider Obstetrics & Gynecology Gynecologic Oncology
DX: C54.1 Malignant neoplasm of endometrium (principal)
CPT/HCPCS: 36415; 80053; 85025

== ENCOUNTER → 2021-11-14 09:04 | Outpatient (CLI) | payer MEDICARE, SELFPAY ==
[2021-11-14 10:22] LABS: Basophils # 0.1 K/mm3 (0-0.2); Basophils % 1.3 % (0.1-2.0); Eosinophils # 0.1 K/mm3 (0.0-0.4); Eosinophils % 2.3 % (0.1-12.0); Hematocrit 34.9 % (37.0-47.0); Hemoglobin 11.8 g/dL (12.2-16.2); Lymphocytes # 2.1 K/mm3 (0.7-4.5); Lymphocytes % 43.8 % (10-50); Mean Corpuscular HGB Conc 33.9 g/dL (31.8-35.4); Mean Corpuscular Hemoglobin 31.3 pg (27.0-31.2); Mean Corpuscular Volume 92.4 fl (81-99); Mean Platelet Volume 7.4 fl (7.4-10.4); Monocytes # 0.3 K/mm3 (0.1-1.0); Monocytes % 7.1 % (1.7-9.3); Neutrophils # 2.2 K/mm3 (1.8-7.8); Neutrophils % 45.6 % (37.0-80.0); Platelet Count 310 K/mm3 (142-424); Red Blood Count 3.78 M/mm3 (4.20-5.40); Red Cell Distribution Width 14.8 % (11.5-17.5); White Blood Count 4.9 K/mm3 (4.8-10.8)
[2021-11-14 10:42] LABS: Alanine Aminotransferase 35 U/L (12-78); Albumin/Globulin Ratio 1.7 (1.1-1.8); Alkaline Phosphatase 94 U/L (38-126); Anion Gap 15.5 mEq/L (5-15); Aspartate Amino Transferase 35 U/L (14-36); Bilirubin,Total 0.4 mg/dl (0.2-1.3); Blood Urea Nitrogen 16 mg/dl (7-17); Calcium 9.5 mg/dl (8.4-10.2); Carbon Dioxide 23 mmol/L (22.0-30.0); Chloride 101 mmol/L (98-107); Estimated Glomerular Filt Rate 98 ml/min (>60); GFR (African American) 118 ML/MIN (>60); Globulin 2.3 g/dL (1.3-3.2); Glucose 160 mg/dl (74-100); Potassium 4.5 mmoL/L (3.5-5.1); Sodium 135 mmol/L (136-145); Total Protein,Serum 6.3 g/dl (6.3-8.2)
== END ==
PROVIDERS: PCP Family Medicine; Visit Provider Obstetrics & Gynecology Gynecologic Oncology
DX: C54.1 Malignant neoplasm of endometrium (principal)
CPT/HCPCS: 36415; 80053; 85025

== ENCOUNTER → 2021-11-20 09:48 | Outpatient (CLI) | payer MEDICARE, SELFPAY ==
[2021-11-20 10:07] LABS: Basophils % 0.9 % (0.1-2.0); Eosinophils # 0.1 K/mm3 (0.0-0.4); Eosinophils % 2.3 % (0.1-12.0); Hematocrit 35.9 % (37.0-47.0); Hemoglobin 12.2 g/dL (12.2-16.2); Lymphocytes # 1.6 K/mm3 (0.7-4.5); Mean Corpuscular HGB Conc 33.9 g/dL (31.8-35.4); Mean Corpuscular Hemoglobin 31.5 pg (27.0-31.2); Mean Corpuscular Volume 92.9 fl (81-99); Mean Platelet Volume 7.7 fl (7.4-10.4); Neutrophils # 2.2 K/mm3 (1.8-7.8); Neutrophils % 55.9 % (37.0-80.0); Platelet Count 206 K/mm3 (142-424); Red Blood Count 3.86 M/mm3 (4.20-5.40)
[2021-11-20 10:18] LABS: Alanine Aminotransferase 42 U/L (12-78); Albumin Level 4.1 g/dl (3.5-5.0); Albumin/Globulin Ratio 1.5 (1.1-1.8); Alkaline Phosphatase 77 U/L (38-126); Anion Gap 15.4 mEq/L (5-15); Aspartate Amino Transferase 40 U/L (14-36); Bilirubin,Total 0.4 mg/dl (0.2-1.3); Blood Urea Nitrogen 17 mg/dl (7-17); Calcium 9.2 mg/dl (8.4-10.2); Carbon Dioxide 25 mmol/L (22.0-30.0); Chloride 97 mmol/L (98-107); Estimated Glomerular Filt Rate 98 ml/min (>60); GFR (African American) 118 ML/MIN (>60); Globulin 2.7 g/dL (1.3-3.2); Glucose 195 mg/dl (74-100); Potassium 4.4 mmoL/L (3.5-5.1); Sodium 133 mmol/L (136-145); Total Protein,Serum 6.8 g/dl (6.3-8.2)
== END ==
PROVIDERS: PCP Family Medicine; Visit Provider Obstetrics & Gynecology Gynecologic Oncology
DX: C54.1 Malignant neoplasm of endometrium (principal)
CPT/HCPCS: 36415; 80053; 85025

== ENCOUNTER → 2021-11-27 09:40 | Outpatient (CLI) | payer MEDICARE, SELFPAY ==
[2021-11-27 10:48] LABS: Eosinophils # 0.1 K/mm3 (0.0-0.4); Eosinophils % 2.3 % (0.1-12.0); Hemoglobin 11.6 g/dL (12.2-16.2); Lymphocytes % 60.5 % (10-50); Mean Corpuscular HGB Conc 33.2 g/dL (31.8-35.4); Mean Corpuscular Hemoglobin 30.9 pg (27.0-31.2); Mean Platelet Volume 8.2 fl (7.4-10.4); Monocytes # 0.2 K/mm3 (0.1-1.0); Monocytes % 7.2 % (1.7-9.3); Platelet Count 351 K/mm3 (142-424); Red Blood Count 3.77 M/mm3 (4.20-5.40); Red Cell Distribution Width 15.2 % (11.5-17.5); White Blood Count 3.3 K/mm3 (4.8-10.8)
[2021-11-27 10:59] LABS: MANUAL DIFFERENTIAL MANUAL DIFFERENTIAL (MANUAL DIFF)
[2021-11-27 11:41] LABS: Anisocytosis 1+; Eosinophils % 2 % (0-3); Lymphocytes % 56 % (10-50); Macrocytosis 1+; Monocytes % 5 % (2-9); Neutrophils % 37 % (42-76); Poikilocytosis 1+; Total Cells Counted 100
[2021-11-27 11:42] LABS: Platelet Estimate Normal
[2021-11-27 11:44] LABS: Chloride 102 mmol/L (98-107); Sodium 135 mmol/L (136-145)
[2021-11-27 11:45] LABS: Potassium 4.4 mmoL/L (3.5-5.1)
[2021-11-27 11:47] LABS: Alanine Aminotransferase 36 U/L (12-78); Albumin Level 4.1 g/dl (3.5-5.0); Albumin/Globulin Ratio 1.7 (1.1-1.8); Alkaline Phosphatase 78 U/L (38-126); Anion Gap 14.4 mEq/L (5-15); Aspartate Amino Transferase 33 U/L (14-36); Bilirubin,Total 0.3 mg/dl (0.2-1.3); Blood Urea Nitrogen 16 mg/dl (7-17); Calcium 9.3 mg/dl (8.4-10.2); Carbon Dioxide 23 mmol/L (22.0-30.0); Estimated Glomerular Filt Rate 98 ml/min (>60); GFR (African American) 118 ML/MIN (>60); Globulin 2.4 g/dL (1.3-3.2); Glucose 239 mg/dl (74-100); Total Protein,Serum 6.5 g/dl (6.3-8.2)
== END ==
PROVIDERS: PCP Family Medicine; Visit Provider Obstetrics & Gynecology Gynecologic Oncology
DX: C54.1 Malignant neoplasm of endometrium (principal)
CPT/HCPCS: 36415; 80053; 85007; 85025

== ENCOUNTER → 2021-12-05 13:18 | Outpatient (CLI) | payer MEDICARE, SELFPAY ==
[2021-12-05 15:15] LABS: Basophils # 0.1 K/mm3 (0-0.2); Basophils % 0.8 % (0.1-2.0); Eosinophils # 0.1 K/mm3 (0.0-0.4); Eosinophils % 1.9 % (0.1-12.0); Hematocrit 34.7 % (37.0-47.0); Hemoglobin 11.7 g/dL (12.2-16.2); Lymphocytes # 2.7 K/mm3 (0.7-4.5); Lymphocytes % 45.9 % (10-50); Mean Corpuscular HGB Conc 33.7 g/dL (31.8-35.4); Mean Platelet Volume 8.3 fl (7.4-10.4); Monocytes # 0.4 K/mm3 (0.1-1.0); Monocytes % 7.2 % (1.7-9.3); Neutrophils # 2.6 K/mm3 (1.8-7.8); Neutrophils % 44.1 % (37.0-80.0); Platelet Count 432 K/mm3 (142-424); Red Blood Count 3.78 M/mm3 (4.20-5.40); Red Cell Distribution Width 15.7 % (11.5-17.5); White Blood Count 5.8 K/mm3 (4.8-10.8)
[2021-12-05 15:41] LABS: Alanine Aminotransferase 30 U/L (12-78); Albumin Level 4.1 g/dl (3.5-5.0); Albumin/Globulin Ratio 1.6 (1.1-1.8); Alkaline Phosphatase 80 U/L (38-126); Anion Gap 16.2 mEq/L (5-15); Aspartate Amino Transferase 38 U/L (14-36); Bilirubin,Total 0.1 mg/dl (0.2-1.3); Blood Urea Nitrogen 18 mg/dl (7-17); Calcium 9.6 mg/dl (8.4-10.2); Carbon Dioxide 24 mmol/L (22.0-30.0); Chloride 99 mmol/L (98-107); Estimated Glomerular Filt Rate 82 ml/min (>60); GFR (African American) 99 ML/MIN (>60); Globulin 2.6 g/dL (1.3-3.2); Glucose 148 mg/dl (74-100); Potassium 4.2 mmoL/L (3.5-5.1); Sodium 135 mmol/L (136-145); Total Protein,Serum 6.7 g/dl (6.3-8.2)
== END ==
PROVIDERS: Obstetrics & Gynecology Gynecologic Oncology; PCP Family Medicine; Visit Provider Obstetrics & Gynecology
DX: C54.1 Malignant neoplasm of endometrium (principal)
CPT/HCPCS: 36415; 80053; 85025

== ENCOUNTER → 2021-12-08 10:47 | Outpatient (CLI) | payer MEDICARE, SELFPAY ==
--- NOTE | 2021-12-08 10:50 | CT_ITS ---
FINAL REPORT TECHNIQUE: Axial images through the abdomen and pelvis were performed without contrast. This study was performed with techniques to keep radiation doses as low as reasonably achievable, (ALARA). Individualized dose reduction techniques using automated exposure control or adjustment of mA and/or kV according to the patient's size were employed. CLINICAL HISTORY: ABDOMINAL MASS LOWER ABD/PELVIC AREA, RECENT DIAGNOSIS OF UTERINE CANCER, HYSTERECTOMY September. FINDINGS: ABDOMEN: There is mild bibasilar atelectasis or scarring. There is a calcified granuloma in the left lung base. There is a right lung base nodule measuring 7 mm. The heart size is normal. There is a small hiatal hernia. There is presumed postoperative change from cholecystectomy. There is a calcification just medially measuring 16 mm of uncertain etiology. A stone in the cystic duct remnant or dystrophic calcification is not excluded. The liver parenchyma is homogeneous. The spleen is normal. No adrenal mass is identified. The aorta is normal in caliber. There are moderate vascular calcifications. There is no significant free fluid or adenopathy. There is no nephrolithiasis. There is no hydronephrosis. PELVIS: The appendix is not well visualized. A left anterior pelvic wall hernia contains multiple nonobstructed small bowel loops. The urinary bladder is unremarkable. There is no significant free fluid or adenopathy. The patient is status post hysterectomy. IMPRESSION: Right lung base nodule, nonspecific metastasis is not excluded. Recommend follow-up chest CT in 3 months. Calcification right upper quadrant of uncertain etiology possible stone in the cystic duct remnant or dystrophic calcification. Large anterior pelvic wall hernia containing nonobstructed small bowel loops. Reviewed, Interpreted and Dictated by Goyo Alberto III, MD Transcribed by Laila Zavala Authenticated and [facility]
== END ==
PROVIDERS: PCP Family Medicine; Visit Provider Nurse Practitioner Family
DX: R19.00 Intra-abdominal and pelvic swelling, mass and lump, unspecified site (principal)
CPT/HCPCS: 74176

== ENCOUNTER → 2021-12-25 09:30 | Outpatient (CLI) | payer MEDICARE, SELFPAY ==
[2021-12-25 09:58] LABS: Basophils # 0.1 K/mm3 (0-0.2); Basophils % 1.2 % (0.1-2.0); Eosinophils # 0.2 K/mm3 (0.0-0.4); Eosinophils % 3.4 % (0.1-12.0); Hematocrit 32.4 % (37.0-47.0); Hemoglobin 10.6 g/dL (12.2-16.2); Lymphocytes # 2.3 K/mm3 (0.7-4.5); Lymphocytes % 33.7 % (10-50); Mean Corpuscular HGB Conc 32.8 g/dL (31.8-35.4); Mean Corpuscular Hemoglobin 30.8 pg (27.0-31.2); Mean Corpuscular Volume 93.9 fl (81-99); Mean Platelet Volume 7.6 fl (7.4-10.4); Monocytes # 0.4 K/mm3 (0.1-1.0); Monocytes % 5.5 % (1.7-9.3); Neutrophils # 3.8 K/mm3 (1.8-7.8); Neutrophils % 56.1 % (37.0-80.0); Platelet Count 521 K/mm3 (142-424); Red Blood Count 3.45 M/mm3 (4.20-5.40); Red Cell Distribution Width 16.4 % (11.5-17.5); White Blood Count 6.7 K/mm3 (4.8-10.8)
[2021-12-25 10:03] LABS: Chloride 104 mmol/L (98-107); Sodium 136 mmol/L (136-145)
[2021-12-25 10:06] LABS: Alanine Aminotransferase 35 U/L (12-78); Albumin/Globulin Ratio 1.4 (1.1-1.8); Alkaline Phosphatase 87 U/L (38-126); Aspartate Amino Transferase 42 U/L (14-36); Bilirubin,Total 0.3 mg/dl (0.2-1.3); Blood Urea Nitrogen 11 mg/dl (7-17); Calcium 8.9 mg/dl (8.4-10.2); Carbon Dioxide 22 mmol/L (22.0-30.0); Estimated Glomerular Filt Rate 98 ml/min (>60); GFR (African American) 118 ML/MIN (>60); Globulin 2.9 g/dL (1.3-3.2); Glucose 168 mg/dl (74-100); Total Protein,Serum 6.9 g/dl (6.3-8.2)
== END ==
PROVIDERS: PCP Family Medicine; Visit Provider Obstetrics & Gynecology
DX: C54.1 Malignant neoplasm of endometrium (principal)
CPT/HCPCS: 36415; 80053; 85025

== ENCOUNTER 2021-12-31 19:41 | Emergency (ER) | payer MEDICARE, SELFPAY ==
[2021-12-31 19:43] VITALS: BP 175/84; PULSE 80; RESP 19; TEMP 37.2; O2SAT 97; BMI 34.8
[2021-12-31 19:56] VITALS: BMI 34.8
--- NOTE | 2021-12-31 19:59 | CT_ITS ---
PROCEDURE INFORMATION: Exam: CT Abdomen And Pelvis With Contrast Exam date and time: 12/31/2021 8:47 PM Age: 76 years old Clinical indication: Other: Bleeding after recent abd surgery; Additional info: Bleeding, chemo PT, recent abd surgery TECHNIQUE: Imaging protocol: Computed tomography of the abdomen and pelvis with contrast. Radiation optimization: All CT scans at this facility use at least one of these dose optimization techniques: automated exposure control; mA and/or kV adjustment per patient size (includes targeted exams where dose is matched to clinical indication); or iterative reconstruction. Contrast material: ISOVUE; Contrast volume: 75 ml; Contrast route: IV; COMPARISON: CT ABDOMEN PELVIS WO CON 12/08/2021 10:54 AM FINDINGS: Lungs: No mass/infiltrate at either lung base. No pleural effusion. Again, there is a 7 mm noncalcified solid nodule within the right lower lobe. Series 3, image 9. There is a calcified granuloma at the left lung base. Prominent chronic parenchymal changes at the lung bases. Liver: The liver is normal in size and attenuation. No intrahepatic biliary dilitation. Gallbladder and bile ducts: The gallbladder is surgically absent. No evidence of extrahepatic biliary dilatation. Calcification within the gallbladder bed unchanged. Pancreas: Normal. No ductal dilation. Spleen: No splenomegaly. Granulomatous calcification noted. Adrenal glands: Normal. No mass. Kidneys and ureters: Normal. No hydronephrosis. Stomach and bowel: Unremarkable. No obstruction. No mucosal thickening. Small bowel mesentery is normal. Appendix: The appendix is poorly visualized on this examination. There is no evidence of acute inflammatory process within the right lower quadrant. Intraperitoneal space: Unremarkable. No free air. No significant fluid collection. Vasculature: Arterial atheromatous calcifications are noted. No abdominal aortic aneurysm. There are calcified phleboliths within the pelvis. Lymph nodes: Clips identified within each iliac region, which could be on the basis of prior bilateral iliac lymphadenectomy. No enlarged lymph nodes. Urinary bladder: Unremarkable as visualized. Limited distention noted. Reproductive: Hysterectomy has been performed. Bones/joints: There are degenerative changes noted within the lumbar spine. Levoconvex lumbar scoliosis noted. Degenerative changes of the sacroiliac joints and symphysis pubis. No acute fracture. Soft tissues: This patient is status post left lower quadrant ventral hernia repair. Anterior to the repair there is a collection of fluid. It has Hounsfield unit attenuation slightly greater than water. It measures 13.7 x 5.1 x 6.6 cm. Estimated volume is 241 mL. Primary diagnostic consideration would be an organizing hematoma/seroma within subcutaneous soft tissues. Minimal subcutaneous emphysema noted within subcutaneous fat of the left lower quadrant. This could be on the basis of recent subcutaneous injection. IMPRESSION: 1. 13.7 x 5.1 x 6.6 cm fluid collection within subcutaneous soft tissues of the left lower quadrant just anterior to the site of ventral hernia repair since 12/08/2021. Primary diagnostic consideration would be an organizing hematoma/seroma. 2. Left lower quadrant ventral hernia repair remains intact. 3. Persistent stable 7 mm noncalcified solid nodule within the right lower lobe. 4. The appearance of prior cholecystectomy and calcification within the gallbladder bed appears unchanged. 5. Hysterectomy has been performed. Clips within the iliac regions could be on the basis of prior bilateral iliac lymphadenectomy. 6. For patients at low risk (minima
[2021-12-31 20:15] LABS: Basophils # 0.2 K/mm3 (0-0.2); Basophils % 3.4 % (0.1-2.0); Eosinophils # 0.2 K/mm3 (0.0-0.4); Eosinophils % 3.9 % (0.1-12.0); Hematocrit 35.1 % (37.0-47.0); Lymphocytes # 1.9 K/mm3 (0.7-4.5); Lymphocytes % 30.1 % (10-50); Mean Corpuscular HGB Conc 31.3 g/dL (31.8-35.4); Mean Corpuscular Hemoglobin 30.9 pg (27.0-31.2); Mean Corpuscular Volume 98.6 fl (81-99); Mean Platelet Volume 7.4 fl (7.4-10.4); Monocytes # 0.3 K/mm3 (0.1-1.0); Monocytes % 4.9 % (1.7-9.3); Neutrophils # 3.5 K/mm3 (1.8-7.8); Neutrophils % 57.7 % (37.0-80.0); Platelet Count 433 K/mm3 (142-424); Red Blood Count 3.56 M/mm3 (4.20-5.40); Red Cell Distribution Width 16.5 % (11.5-17.5); White Blood Count 6.1 K/mm3 (4.8-10.8)
[2021-12-31 20:18] LABS: INR 0.95 (0.9-1.1); Prothrombin Time 10.8 seconds (10.1-12.5)
[2021-12-31 20:20] LABS: Alanine Aminotransferase 34 U/L (12-78); Albumin Level 3.9 g/dl (3.5-5.0); Albumin/Globulin Ratio 1.3 (1.1-1.8); Alkaline Phosphatase 128 U/L (38-126); Anion Gap 15.1 mEq/L (5-15); Aspartate Amino Transferase 38 U/L (14-36); Blood Urea Nitrogen 14 mg/dl (7-17); Carbon Dioxide 23 mmol/L (22.0-30.0); Chloride 103 mmol/L (98-107); Creatinine Clearance Estimated 81 mL/min (50-200); Estimated Glomerular Filt Rate 82 ml/min (>60); GFR (African American) 99 ML/MIN (>60); Glucose 212 mg/dl (74-100); Potassium 4.1 mmoL/L (3.5-5.1); Sodium 137 mmol/L (136-145); Total Protein,Serum 6.9 g/dl (6.3-8.2)
[2021-12-31 20:25] LABS: Bilirubin,Total < 0.1 mg/dl (0.2-1.3); C-Reactive Protein 11.7 mg/L (0-4)
[2021-12-31 20:39] LABS: Procalcitonin 0.056 ng/mL (0.0-2.0)
[2021-12-31 20:47] LABS: Microscopic, Urine URINE MICROSCOPIC (MICROSCOPIC)
--- NOTE | 2021-12-31 20:47 | HMH.EDUROGF ---
ED Disposition Clinical Impression: Vaginal bleeding, Seroma Urinary tract infection Qualifiers: Urinary tract infection type: site unspecified Hematuria presence: without hematuria Qualified Code(s): N39.0 - Urinary tract infection, site not specified Disposition: Home, Self-Care Condition on Discharge: Good Instructions: DI for Urinary Tract Infection (UTI) Additional Instructions: call pcp and oncology in am for follow up Referrals: Andrew Monson MD [Primary Care Provider] - - Critical Care Critical Care Time: No Attestation: On 12/31/21, the high probability of a clinically significant, sudden or life threatening deterioration of the following system(s) required my full and direct attention, intervention and personal management. The time I documented below is in addition to time spent performing reported procedures but includes the following listed in this critical care notation. Medical Decision Making - Medical Records Medical records reviewed: Yes: I reviewed the patient's medical records. - [place] Inquiry Pt receiving controlled substance: No Vital Signs: 12/31/21 19:43 Temperature 98.9 F Temperature Source Oral Pulse Rate [Right] 80 Respiratory Rate 19 Blood Pressure [Right Arm] 175/84 H Blood Pressure Mean [Right Arm] 114 Blood Pressure Source [Right Arm] Automatic Cuff 02 Sat by Pulse Oximetry 97 Oxygen Delivery Method Room Air - Lab Data Lab results reviewed: Yes: I reviewed the patient's lab results. Lab Results 12/31/21 19:52: ESR 66 H 12/31/21 19:52: C-Reactive Protein 11.7 H, Procalcitonin 0.056 12/31/21 19:52: WBC 6.1, RBC 3.56 L, Hgb 11.0 L, Hct 35.1 L, MCV 98.6, MCH 30.9, MCHC 31.3 L, RDW 16.5, Plt Count 433 H, MPV 7.4, Neut % (Auto) 57.7, Lymph % (Auto) 30.1, Haywood % (Auto) 4.9, Eos % (Auto) 3.9, Baso % (Auto) 3.4 H, Neut # (Auto) 3.5, Lymph # (Auto) 1.9, Haywood # (Auto) 0.3, Eos # (Auto) 0.2, Baso # (Auto) 0.2 12/31/21 19:52: Sodium 137, Potassium 4.1, Chloride 103, Carbon Dioxide 23, Anion Gap 15.1 H, BUN 14, Creatinine 0.70, Estimated Creat Clear 81, Estimated GFR 82, Est GFR ( Amer) 99, Glucose 212 H, Calcium 9.0, Total Bilirubin < 0.1 L, AST 38 H, ALT 34, Alkaline Phosphatase 128 H, Total Protein 6.9, Albumin 3.9, Globulin 3.0, Albumin/Globulin Ratio 1.3 12/31/21 19:52: PT 10.8, INR 0.95 12/31/21 20:20: Urine Color Yellow, Urine Appearance Cloudy, Urine pH 6.0, Ur Specific Wright >= 1.030, Urine Protein Negative, Urine Glucose (UA) Negative, Urine Ketones Negative, Urine Blood 3+, Urine Nitrate Negative, Urine Bilirubin Negative, Urine Urobilinogen 0.2, Ur Leukocyte Esterase 2+ A, Urine RBC 50-100, Urine WBC 20-50, Ur Squamous Epith Cells 3-5 Result diagrams: 12/31/21 19:52 12/31/21 19:52 Orders (Tests/Meds): ED MEDICATIONS Generic Name Dose Route Start Last Admin Trade Name Freq PRN Reason Stop Dose Admin Sodium Chloride 1,000 mls @ 999 mls/hr 12/31/21 20:00 12/31/21 20:07 Sod Chlor 0.9% 1000ml Bag IV 12/31/21 21:00 999 mls/hr .Q1H1M VESTA Administration Discontinued Medications Generic Name Dose Route Start Last Admin Trade Name Freq PRN Reason Stop Dose Admin Iopamidol 75 ml 12/31/21 20:54 12/31/21 20:58 Iopamidol-370 (76%);100ml Bottle IV 12/31/21 20:55 75 ml ONCE ONE Administration Sodium Chloride 10 ml 12/31/21 20:54 12/31/21 20:58 Sodium Chloride 0.9% 10ml Syr (Rad Only) IV 12/31/21 20:55 10 ml ONCE ONE Administration ORDERS Category Date Time Status Rapid PCR Covid and Flu A/B Stat Lab 12/31/21 19:56 Ordered Urine Culture Stat Micro 12/31/21 20:20 Received - CT Data CT Scan: Abdomen, Pelvis Time Received: 22:[address] Reviewed: Yes: I have viewed the radiologist's interpretation Preliminary Findings: Abnormal (see report ) Medical Decision Narrative: stable exam and labs except u/a - will have pt call for follow up Female Urogenital HPI - General Chief complaint: Urogenital-Female Stat
[2021-12-31 20:50] LABS: Appearance,Urine CLOUDY (Clear); Bilirubin,Urine Negative (Negative); Blood, Urine 3+ (Negative); Color,Urine YELLOW (Yellow); Glucose,Urine (UA) Negative (Negative); Ketones,Urine Negative (Negative); Leukocyte Esterase,Urine 2+ (Negative); Nitrate,Urine Negative (Negative); Protein,Urine Negative (Negative); Specific Gravity, Urine >= 1.030 (1.005-1.030); Urobilinogen,Urine 0.2 EU/dl (0.2)
[2021-12-31 20:54] LABS: Erythrocyte Sedimentation Rate 66 mm/hr (0-30)
[2021-12-31 20:55] LABS: RBC,Urine 50-100 #/hpf (0-3); WBC,Urine 20-50 #/hpf (0-3)
[2021-12-31 21:38] VITALS: BP 160/93; PULSE 79; O2SAT 95
--- NOTE | 2021-12-31 22:28 | PC.NURSE ---
Assisted Dr. Hernández with vaginal exam. Pt tolerated well. Small amount of trickling of blood is reports within the vagina.
[2021-12-31 22:30] VITALS: BP 153/86; PULSE 72; O2SAT 94
[2021-12-31 22:36] VITALS: BP 153/86; PULSE 85; RESP 18; TEMP 36.8; O2SAT 97
--- NOTE | 2021-12-31 22:36 | PC.NURSE ---
disc requested from radiology of scans completed at this visit
== END 2021-12-31 22:57 | disposition home or self-care (01) ==
PROVIDERS: Emergency Medicine; Emergency Provider Emergency Medicine; PCP Family Medicine
DX: N93.9 Abnormal uterine and vaginal bleeding, unspecified (principal); T14.8XXA Other injury of unspecified body region, initial encounter; N39.0 Urinary tract infection, site not specified; Z79.84 Long term (current) use of oral hypoglycemic drugs; Z79.899 Other long term (current) drug therapy; Z88.6 Allergy status to analgesic agent; E11.9 Type 2 diabetes mellitus without complications; E78.5 Hyperlipidemia, unspecified; I10 Essential (primary) hypertension; M19.90 Unspecified osteoarthritis, unspecified site; Z90.49 Acquired absence of other specified parts of digestive tract
CPT/HCPCS: 74177; 80053; 81001; 84145; 85025; 85610; 85651; 86140; 87086; 87088; 87186; 96365; 99284; Q9967

== ENCOUNTER → 2022-01-09 09:07 | Outpatient (CLI) | payer MEDICARE, SELFPAY ==
[2022-01-09 09:57] LABS: Basophils # 0.1 K/mm3 (0-0.2); Basophils % 0.8 % (0.1-2.0); Eosinophils # 0.3 K/mm3 (0.0-0.4); Eosinophils % 4.8 % (0.1-12.0); Hematocrit 33.4 % (37.0-47.0); Lymphocytes # 2.2 K/mm3 (0.7-4.5); Lymphocytes % 32.8 % (10-50); Mean Corpuscular Hemoglobin 30.2 pg (27.0-31.2); Mean Corpuscular Volume 91.6 fl (81-99); Mean Platelet Volume 6.8 fl (7.4-10.4); Monocytes # 0.4 K/mm3 (0.1-1.0); Monocytes % 5.8 % (1.7-9.3); Neutrophils # 3.8 K/mm3 (1.8-7.8); Neutrophils % 55.9 % (37.0-80.0); Platelet Count 355 K/mm3 (142-424); Red Blood Count 3.65 M/mm3 (4.20-5.40); Red Cell Distribution Width 15.4 % (11.5-17.5); White Blood Count 6.7 K/mm3 (4.8-10.8)
[2022-01-09 10:18] LABS: Chloride 101 mmol/L (98-107); Potassium 4.3 mmoL/L (3.5-5.1); Sodium 134 mmol/L (136-145)
[2022-01-09 10:20] LABS: Blood Urea Nitrogen 13 mg/dl (7-17); Estimated Glomerular Filt Rate 70 ml/min (>60); GFR (African American) 85 ML/MIN (>60)
[2022-01-09 10:21] LABS: Alanine Aminotransferase 33 U/L (12-78); Albumin/Globulin Ratio 1.5 (1.1-1.8); Alkaline Phosphatase 79 U/L (38-126); Aspartate Amino Transferase 39 U/L (14-36); Bilirubin,Total 0.4 mg/dl (0.2-1.3); Calcium 9.5 mg/dl (8.4-10.2); Globulin 2.7 g/dL (1.3-3.2); Glucose 233 mg/dl (74-100); Total Protein,Serum 6.7 g/dl (6.3-8.2)
[2022-01-09 16:36] LABS: Anion Gap 13.3 mEq/L (5-15); Carbon Dioxide 24 mmol/L (22.0-30.0)
== END ==
PROVIDERS: PCP Family Medicine; Visit Provider Obstetrics & Gynecology
DX: C54.1 Malignant neoplasm of endometrium (principal)
CPT/HCPCS: 36415; 80053; 85025

== ENCOUNTER → 2022-01-15 09:14 | Outpatient (CLI) | payer MEDICARE, SELFPAY ==
[2022-01-15 09:51] LABS: Basophils # 0.1 K/mm3 (0-0.2); Basophils % 1.4 % (0.1-2.0); Eosinophils # 0.3 K/mm3 (0.0-0.4); Eosinophils % 4.7 % (0.1-12.0); Hematocrit 33.1 % (37.0-47.0); Hemoglobin 10.7 g/dL (12.2-16.2); Lymphocytes # 2.3 K/mm3 (0.7-4.5); Lymphocytes % 36.9 % (10-50); Mean Corpuscular HGB Conc 32.4 g/dL (31.8-35.4); Mean Corpuscular Hemoglobin 30.6 pg (27.0-31.2); Mean Corpuscular Volume 94.6 fl (81-99); Mean Platelet Volume 7.6 fl (7.4-10.4); Monocytes # 0.4 K/mm3 (0.1-1.0); Monocytes % 6.3 % (1.7-9.3); Neutrophils # 3.2 K/mm3 (1.8-7.8); Neutrophils % 50.7 % (37.0-80.0); Platelet Count 410 K/mm3 (142-424); Red Cell Distribution Width 16.3 % (11.5-17.5); White Blood Count 6.2 K/mm3 (4.8-10.8)
[2022-01-15 09:56] LABS: Alanine Aminotransferase 30 U/L (12-78); Albumin Level 3.8 g/dl (3.5-5.0); Albumin/Globulin Ratio 1.4 (1.1-1.8); Alkaline Phosphatase 79 U/L (38-126); Anion Gap 11.1 mEq/L (5-15); Aspartate Amino Transferase 30 U/L (14-36); Bilirubin,Total 0.1 mg/dl (0.2-1.3); Blood Urea Nitrogen 15 mg/dl (7-17); Calcium 8.6 mg/dl (8.4-10.2); Carbon Dioxide 25 mmol/L (22.0-30.0); Chloride 104 mmol/L (98-107); Estimated Glomerular Filt Rate 82 ml/min (>60); GFR (African American) 99 ML/MIN (>60); Globulin 2.8 g/dL (1.3-3.2); Glucose 159 mg/dl (74-100); Potassium 4.1 mmoL/L (3.5-5.1); Sodium 136 mmol/L (136-145); Total Protein,Serum 6.6 g/dl (6.3-8.2)
== END ==
PROVIDERS: PCP Family Medicine; Visit Provider Obstetrics & Gynecology
DX: C54.1 Malignant neoplasm of endometrium (principal)
CPT/HCPCS: 36415; 80053; 85025

== ENCOUNTER → 2022-01-23 09:56 | Outpatient (CLI) | payer MEDICARE, SELFPAY ==
[2022-01-23 10:23] LABS: Basophils % 0.7 % (0.1-2.0); Eosinophils # 0.2 K/mm3 (0.0-0.4); Eosinophils % 5.6 % (0.1-12.0); Hematocrit 32.1 % (37.0-47.0); Hemoglobin 10.6 g/dL (12.2-16.2); Lymphocytes # 1.2 K/mm3 (0.7-4.5); Lymphocytes % 30.9 % (10-50); Mean Corpuscular HGB Conc 33.2 g/dL (31.8-35.4); Mean Corpuscular Hemoglobin 30.4 pg (27.0-31.2); Mean Corpuscular Volume 91.6 fl (81-99); Mean Platelet Volume 7.6 fl (7.4-10.4); Monocytes # 0.1 K/mm3 (0.1-1.0); Monocytes % 1.1 % (1.7-9.3); Neutrophils # 2.5 K/mm3 (1.8-7.8); Neutrophils % 61.6 % (37.0-80.0); Platelet Count 305 K/mm3 (142-424); Red Cell Distribution Width 15.2 % (11.5-17.5)
[2022-01-23 11:07] LABS: Alanine Aminotransferase 47 U/L (12-78); Albumin Level 3.8 g/dl (3.5-5.0); Albumin/Globulin Ratio 1.5 (1.1-1.8); Alkaline Phosphatase 86 U/L (38-126); Anion Gap 12.6 mEq/L (5-15); Aspartate Amino Transferase 51 U/L (14-36); Blood Urea Nitrogen 17 mg/dl (7-17); Carbon Dioxide 27 mmol/L (22.0-30.0); Chloride 100 mmol/L (98-107); Estimated Glomerular Filt Rate 98 ml/min (>60); GFR (African American) 118 ML/MIN (>60); Globulin 2.5 g/dL (1.3-3.2); Glucose 183 mg/dl (74-100); Potassium 4.6 mmoL/L (3.5-5.1); Sodium 135 mmol/L (136-145); Total Protein,Serum 6.3 g/dl (6.3-8.2)
[2022-01-23 11:16] LABS: Bilirubin,Total 0.1 mg/dl (0.2-1.3)
== END ==
PROVIDERS: PCP Family Medicine; Referring Provider Obstetrics & Gynecology Gynecologic Oncology; Visit Provider Obstetrics & Gynecology
DX: C54.1 Malignant neoplasm of endometrium (principal)
CPT/HCPCS: 36415; 80053; 85025

== ENCOUNTER → 2022-01-30 09:33 | Outpatient (CLI) | payer MEDICARE, SELFPAY ==
[2022-01-30 09:53] LABS: Eosinophils # 0.2 K/mm3 (0.0-0.4); Eosinophils % 4.5 % (0.1-12.0); Hematocrit 32.1 % (37.0-47.0); Hemoglobin 10.8 g/dL (12.2-16.2); Lymphocytes # 2.2 K/mm3 (0.7-4.5); Lymphocytes % 60.4 % (10-50); Mean Corpuscular HGB Conc 33.7 g/dL (31.8-35.4); Mean Corpuscular Hemoglobin 31.1 pg (27.0-31.2); Mean Corpuscular Volume 92.3 fl (81-99); Mean Platelet Volume 7.1 fl (7.4-10.4); Monocytes # 0.3 K/mm3 (0.1-1.0); Monocytes % 7.8 % (1.7-9.3); Neutrophils % 26.3 % (37.0-80.0); Platelet Count 317 K/mm3 (142-424); Red Blood Count 3.48 M/mm3 (4.20-5.40); Red Cell Distribution Width 15.5 % (11.5-17.5); White Blood Count 3.6 K/mm3 (4.8-10.8)
[2022-01-30 09:58] LABS: MANUAL DIFFERENTIAL MANUAL DIFFERENTIAL (MANUAL DIFF)
[2022-01-30 10:15] LABS: Eosinophils % 2 % (0-3); Lymphocytes % 59 % (10-50); Monocytes % 8 % (2-9); Neutrophils % 31 % (42-76); Total Cells Counted 100
[2022-01-30 10:16] LABS: Anisocytosis 1+; Hypochromasia 1+; Macrocytosis 1+; Ovalocytes 1+; Platelet Estimate Normal
[2022-01-30 10:35] LABS: Alanine Aminotransferase 39 U/L (12-78); Albumin Level 3.8 g/dl (3.5-5.0); Albumin/Globulin Ratio 1.5 (1.1-1.8); Alkaline Phosphatase 119 U/L (38-126); Anion Gap 13.4 mEq/L (5-15); Aspartate Amino Transferase 38 U/L (14-36); Blood Urea Nitrogen 15 mg/dl (7-17); Calcium 8.9 mg/dl (8.4-10.2); Carbon Dioxide 24 mmol/L (22.0-30.0); Chloride 104 mmol/L (98-107); Estimated Glomerular Filt Rate 98 ml/min (>60); GFR (African American) 118 ML/MIN (>60); Globulin 2.6 g/dL (1.3-3.2); Glucose 190 mg/dl (74-100); Potassium 4.4 mmoL/L (3.5-5.1); Sodium 137 mmol/L (136-145); Total Protein,Serum 6.4 g/dl (6.3-8.2)
[2022-01-30 10:37] LABS: Bilirubin,Total < 0.1 mg/dl (0.2-1.3)
== END ==
PROVIDERS: Obstetrics & Gynecology; PCP Family Medicine; Visit Provider Obstetrics & Gynecology Gynecologic Oncology
DX: C54.1 Malignant neoplasm of endometrium (principal)
CPT/HCPCS: 36415; 80053; 85007; 85025

== ENCOUNTER → 2022-02-05 15:56 | Outpatient (CLI) | payer MEDICARE, SELFPAY ==
[2022-02-05 17:59] LABS: Basophils # 0.1 K/mm3 (0-0.2); Basophils % 1.1 % (0.1-2.0); Eosinophils # 0.1 K/mm3 (0.0-0.4); Eosinophils % 2.1 % (0.1-12.0); Hematocrit 33.2 % (37.0-47.0); Hemoglobin 10.6 g/dL (12.2-16.2); Lymphocytes # 2.3 K/mm3 (0.7-4.5); Lymphocytes % 44.7 % (10-50); Mean Corpuscular Hemoglobin 30.6 pg (27.0-31.2); Mean Corpuscular Volume 95.5 fl (81-99); Mean Platelet Volume 8.1 fl (7.4-10.4); Monocytes # 0.4 K/mm3 (0.1-1.0); Monocytes % 7.9 % (1.7-9.3); Neutrophils # 2.2 K/mm3 (1.8-7.8); Neutrophils % 44.1 % (37.0-80.0); Platelet Count 349 K/mm3 (142-424); Red Blood Count 3.47 M/mm3 (4.20-5.40); Red Cell Distribution Width 16.4 % (11.5-17.5)
[2022-02-05 19:03] LABS: Alanine Aminotransferase 32 U/L (12-78); Albumin Level 3.9 g/dl (3.5-5.0); Albumin/Globulin Ratio 1.4 (1.1-1.8); Alkaline Phosphatase 99 U/L (38-126); Anion Gap 12.6 mEq/L (5-15); Aspartate Amino Transferase 36 U/L (14-36); Bilirubin,Total < 0.1 mg/dl (0.2-1.3); Blood Urea Nitrogen 15 mg/dl (7-17); Calcium 9.5 mg/dl (8.4-10.2); Carbon Dioxide 28 mmol/L (22.0-30.0); Chloride 101 mmol/L (98-107); Estimated Glomerular Filt Rate 82 ml/min (>60); GFR (African American) 99 ML/MIN (>60); Globulin 2.7 g/dL (1.3-3.2); Glucose 141 mg/dl (74-100); Potassium 4.6 mmoL/L (3.5-5.1); Sodium 137 mmol/L (136-145); Total Protein,Serum 6.6 g/dl (6.3-8.2)
== END ==
PROVIDERS: PCP Family Medicine; Referring Provider Obstetrics & Gynecology; Visit Provider Obstetrics & Gynecology Gynecologic Oncology
DX: C54.1 Malignant neoplasm of endometrium (principal)
CPT/HCPCS: 36415; 80053; 85025

== ENCOUNTER → 2022-02-13 10:43 | Outpatient (CLI) | payer MEDICARE, SELFPAY ==
[2022-02-13 11:06] LABS: Basophils % 0.6 % (0.1-2.0); Eosinophils # 0.1 K/mm3 (0.0-0.4); Eosinophils % 2.3 % (0.1-12.0); Hemoglobin 11.1 g/dL (12.2-16.2); Lymphocytes # 2.1 K/mm3 (0.7-4.5); Lymphocytes % 39.7 % (10-50); Mean Corpuscular HGB Conc 30.7 g/dL (31.8-35.4); Mean Corpuscular Hemoglobin 30.5 pg (27.0-31.2); Mean Corpuscular Volume 99.2 fl (81-99); Mean Platelet Volume 7.7 fl (7.4-10.4); Monocytes # 0.1 K/mm3 (0.1-1.0); Monocytes % 2.6 % (1.7-9.3); Neutrophils # 2.9 K/mm3 (1.8-7.8); Neutrophils % 54.8 % (37.0-80.0); Platelet Count 284 K/mm3 (142-424); Red Blood Count 3.63 M/mm3 (4.20-5.40); Red Cell Distribution Width 16.3 % (11.5-17.5); White Blood Count 5.2 K/mm3 (4.8-10.8)
[2022-02-13 11:40] LABS: Alanine Aminotransferase 40 U/L (12-78); Albumin Level 4.1 g/dl (3.5-5.0); Albumin/Globulin Ratio 1.5 (1.1-1.8); Alkaline Phosphatase 99 U/L (38-126); Anion Gap 14.6 mEq/L (5-15); Aspartate Amino Transferase 44 U/L (14-36); Bilirubin,Total 0.2 mg/dl (0.2-1.3); Blood Urea Nitrogen 23 mg/dl (7-17); Calcium 9.7 mg/dl (8.4-10.2); Carbon Dioxide 27 mmol/L (22.0-30.0); Chloride 96 mmol/L (98-107); Estimated Glomerular Filt Rate 82 ml/min (>60); GFR (African American) 99 ML/MIN (>60); Globulin 2.7 g/dL (1.3-3.2); Glucose 254 mg/dl (74-100); Potassium 4.6 mmoL/L (3.5-5.1); Sodium 133 mmol/L (136-145); Total Protein,Serum 6.8 g/dl (6.3-8.2)
== END ==
PROVIDERS: PCP Family Medicine; Visit Provider Obstetrics & Gynecology
DX: C54.1 Malignant neoplasm of endometrium (principal)
CPT/HCPCS: 36415; 80053; 85025

== ENCOUNTER → 2022-02-20 10:00 | Outpatient (CLI) | payer MEDICARE, SELFPAY ==
[2022-02-20 10:35] LABS: Basophils % 0.7 % (0.1-2.0); Eosinophils # 0.1 K/mm3 (0.0-0.4); Eosinophils % 1.5 % (0.1-12.0); Hemoglobin 10.1 g/dL (12.2-16.2); Lymphocytes # 2.2 K/mm3 (0.7-4.5); Lymphocytes % 41.6 % (10-50); Mean Corpuscular HGB Conc 31.4 g/dL (31.8-35.4); Mean Corpuscular Volume 98.7 fl (81-99); Mean Platelet Volume 7.4 fl (7.4-10.4); Monocytes # 0.3 K/mm3 (0.1-1.0); Neutrophils # 2.7 K/mm3 (1.8-7.8); Neutrophils % 50.2 % (37.0-80.0); Platelet Count 321 K/mm3 (142-424); Red Blood Count 3.24 M/mm3 (4.20-5.40); Red Cell Distribution Width 16.8 % (11.5-17.5); White Blood Count 5.4 K/mm3 (4.8-10.8)
[2022-02-20 11:20] LABS: Chloride 103 mmol/L (98-107); Potassium 4.4 mmoL/L (3.5-5.1); Sodium 136 mmol/L (136-145)
[2022-02-20 11:22] LABS: Blood Urea Nitrogen 19 mg/dl (7-17); Estimated Glomerular Filt Rate 82 ml/min (>60); GFR (African American) 99 ML/MIN (>60)
[2022-02-20 11:23] LABS: Alanine Aminotransferase 35 U/L (12-78); Albumin/Globulin Ratio 1.6 (1.1-1.8); Alkaline Phosphatase 106 U/L (38-126); Anion Gap 12.4 mEq/L (5-15); Aspartate Amino Transferase 35 U/L (14-36); Bilirubin,Total < 0.1 mg/dl (0.2-1.3); Calcium 9.4 mg/dl (8.4-10.2); Carbon Dioxide 25 mmol/L (22.0-30.0); Globulin 2.5 g/dL (1.3-3.2); Glucose 190 mg/dl (74-100); Total Protein,Serum 6.5 g/dl (6.3-8.2)
== END ==
PROVIDERS: PCP Obstetrics & Gynecology Gynecologic Oncology; Visit Provider Obstetrics & Gynecology
DX: C54.1 Malignant neoplasm of endometrium (principal)
CPT/HCPCS: 36415; 80053; 85025

== ENCOUNTER → 2022-02-27 09:42 | Outpatient (CLI) | payer MEDICARE, SELFPAY ==
[2022-02-27 10:18] LABS: Basophils % 0.8 % (0.1-2.0); Eosinophils # 0.1 K/mm3 (0.0-0.4); Eosinophils % 1.4 % (0.1-12.0); Hematocrit 32.2 % (37.0-47.0); Hemoglobin 9.9 g/dL (12.2-16.2); Lymphocytes % 46.6 % (10-50); Mean Corpuscular HGB Conc 30.8 g/dL (31.8-35.4); Mean Corpuscular Hemoglobin 31.6 pg (27.0-31.2); Mean Corpuscular Volume 102.6 fl (81-99); Mean Platelet Volume 7.6 fl (7.4-10.4); Monocytes # 0.2 K/mm3 (0.1-1.0); Monocytes % 4.8 % (1.7-9.3); Neutrophils % 46.5 % (37.0-80.0); Platelet Count 228 K/mm3 (142-424); Red Blood Count 3.14 M/mm3 (4.20-5.40); White Blood Count 4.4 K/mm3 (4.8-10.8)
[2022-02-27 11:25] LABS: Alanine Aminotransferase 32 U/L (12-78); Albumin Level 3.7 g/dl (3.5-5.0); Albumin/Globulin Ratio 1.4 (1.1-1.8); Alkaline Phosphatase 92 U/L (38-126); Anion Gap 16.3 mEq/L (5-15); Aspartate Amino Transferase 36 U/L (14-36); Blood Urea Nitrogen 18 mg/dl (7-17); Calcium 9.1 mg/dl (8.4-10.2); Carbon Dioxide 22 mmol/L (22.0-30.0); Chloride 104 mmol/L (98-107); Estimated Glomerular Filt Rate 98 ml/min (>60); GFR (African American) 118 ML/MIN (>60); Globulin 2.6 g/dL (1.3-3.2); Glucose 176 mg/dl (74-100); Potassium 4.3 mmoL/L (3.5-5.1); Sodium 138 mmol/L (136-145); Total Protein,Serum 6.3 g/dl (6.3-8.2)
[2022-02-27 11:39] LABS: Bilirubin,Total < 0.1 mg/dl (0.2-1.3)
== END ==
PROVIDERS: PCP Family Medicine; Visit Provider Obstetrics & Gynecology
DX: C54.1 Malignant neoplasm of endometrium (principal)
CPT/HCPCS: 36415; 80053; 85025

== ENCOUNTER → 2022-03-06 09:59 | Outpatient (CLI) | payer MEDICARE, SELFPAY ==
[2022-03-06 10:48] LABS: Basophils % 0.1 % (0.1-2.0); Eosinophils % 0.6 % (0.1-12.0); Hematocrit 33.8 % (37.0-47.0); Hemoglobin 10.4 g/dL (12.2-16.2); Lymphocytes # 1.8 K/mm3 (0.7-4.5); Lymphocytes % 59.3 % (10-50); Mean Corpuscular HGB Conc 30.7 g/dL (31.8-35.4); Mean Corpuscular Hemoglobin 29.9 pg (27.0-31.2); Mean Corpuscular Volume 97.3 fl (81-99); Mean Platelet Volume 8.1 fl (7.4-10.4); Monocytes # 0.1 K/mm3 (0.1-1.0); Monocytes % 1.7 % (1.7-9.3); Neutrophils # 1.1 K/mm3 (1.8-7.8); Neutrophils % 38.2 % (37.0-80.0); Platelet Count 196 K/mm3 (142-424); Red Blood Count 3.48 M/mm3 (4.20-5.40); Red Cell Distribution Width 16.4 % (11.5-17.5)
[2022-03-06 10:50] LABS: MANUAL DIFFERENTIAL MANUAL DIFFERENTIAL (MANUAL DIFF)
[2022-03-06 11:12] LABS: Chloride 100 mmol/L (98-107); Potassium 4.5 mmoL/L (3.5-5.1); Sodium 136 mmol/L (136-145)
[2022-03-06 11:15] LABS: Alanine Aminotransferase 46 U/L (12-78); Albumin Level 4.3 g/dl (3.5-5.0); Albumin/Globulin Ratio 1.6 (1.1-1.8); Alkaline Phosphatase 74 U/L (38-126); Anion Gap 17.5 mEq/L (5-15); Aspartate Amino Transferase 52 U/L (14-36); Bilirubin,Total 0.2 mg/dl (0.2-1.3); Blood Urea Nitrogen 23 mg/dl (7-17); Calcium 9.1 mg/dl (8.4-10.2); Carbon Dioxide 23 mmol/L (22.0-30.0); Estimated Glomerular Filt Rate 98 ml/min (>60); GFR (African American) 118 ML/MIN (>60); Globulin 2.7 g/dL (1.3-3.2); Glucose 183 mg/dl (74-100)
[2022-03-06 18:05] LABS: Lymphocytes % 65 % (10-50); Neutrophils % 35 % (42-76); Total Cells Counted 100
[2022-03-06 18:06] LABS: Platelet Estimate Normal; Tear Drop Cells 1+
[2022-03-06 18:07] LABS: Ovalocytes 1+
== END ==
PROVIDERS: PCP Family Medicine; Visit Provider Obstetrics & Gynecology Gynecologic Oncology
DX: C54.1 Malignant neoplasm of endometrium (principal)
CPT/HCPCS: 36415; 80053; 85007; 85025

== ENCOUNTER → 2022-03-13 10:16 | Outpatient (CLI) | payer MEDICARE, SELFPAY ==
[2022-03-13 10:50] LABS: Basophils % 0.4 % (0.1-2.0); Eosinophils % 0.3 % (0.1-12.0); Hematocrit 30.1 % (37.0-47.0); Hemoglobin 9.6 g/dL (12.2-16.2); Lymphocytes % 71.7 % (10-50); Mean Corpuscular Volume 96.9 fl (81-99); Mean Platelet Volume 8.8 fl (7.4-10.4); Monocytes # 0.3 K/mm3 (0.1-1.0); Monocytes % 9.9 % (1.7-9.3); Neutrophils # 0.5 K/mm3 (1.8-7.8); Neutrophils % 17.6 % (37.0-80.0); Platelet Count 286 K/mm3 (142-424); Red Cell Distribution Width 17.7 % (11.5-17.5); White Blood Count 2.7 K/mm3 (4.8-10.8)
[2022-03-13 10:53] LABS: MANUAL DIFFERENTIAL MANUAL DIFFERENTIAL (MANUAL DIFF)
[2022-03-13 12:13] LABS: Alanine Aminotransferase 31 U/L (12-78); Albumin Level 3.6 g/dl (3.5-5.0); Albumin/Globulin Ratio 1.4 (1.1-1.8); Alkaline Phosphatase 77 U/L (38-126); Anion Gap 15.2 mEq/L (5-15); Aspartate Amino Transferase 32 U/L (14-36); Blood Urea Nitrogen 17 mg/dl (7-17); Calcium 8.4 mg/dl (8.4-10.2); Carbon Dioxide 22 mmol/L (22.0-30.0); Chloride 104 mmol/L (98-107); Estimated Glomerular Filt Rate 98 ml/min (>60); GFR (African American) 118 ML/MIN (>60); Globulin 2.6 g/dL (1.3-3.2); Glucose 192 mg/dl (74-100); Potassium 4.2 mmoL/L (3.5-5.1); Sodium 137 mmol/L (136-145); Total Protein,Serum 6.2 g/dl (6.3-8.2)
[2022-03-13 12:14] LABS: Bilirubin,Total < 0.1 mg/dl (0.2-1.3)
[2022-03-13 13:24] LABS: Anisocytosis 1+; Eosinophils % 1 % (0-3); Lymphocytes % 64 % (10-50); Monocytes % 7 % (2-9); Neutrophils % 27 % (42-76); Ovalocytes 1+; Platelet Estimate Normal; Total Cells Counted 100
== END ==
PROVIDERS: PCP Family Medicine; Visit Provider Obstetrics & Gynecology Gynecologic Oncology
DX: C54.1 Malignant neoplasm of endometrium (principal)
CPT/HCPCS: 36415; 80053; 85007; 85025

== ENCOUNTER → 2022-03-20 09:34 | Outpatient (CLI) | payer MEDICARE, SELFPAY ==
[2022-03-20 10:14] LABS: Basophils # 0.1 K/mm3 (0-0.2); Eosinophils % 0.8 % (0.1-12.0); Hematocrit 32.2 % (37.0-47.0); Hemoglobin 10.2 g/dL (12.2-16.2); Lymphocytes # 2.3 K/mm3 (0.7-4.5); Lymphocytes % 42.6 % (10-50); Mean Corpuscular HGB Conc 31.7 g/dL (31.8-35.4); Mean Corpuscular Hemoglobin 31.6 pg (27.0-31.2); Mean Corpuscular Volume 99.5 fl (81-99); Mean Platelet Volume 7.4 fl (7.4-10.4); Monocytes # 0.3 K/mm3 (0.1-1.0); Monocytes % 6.1 % (1.7-9.3); Neutrophils # 2.6 K/mm3 (1.8-7.8); Neutrophils % 49.5 % (37.0-80.0); Platelet Count 303 K/mm3 (142-424); Red Blood Count 3.24 M/mm3 (4.20-5.40); Red Cell Distribution Width 18.7 % (11.5-17.5); White Blood Count 5.3 K/mm3 (4.8-10.8)
[2022-03-20 11:26] LABS: Alanine Aminotransferase 36 U/L (12-78); Albumin Level 3.8 g/dl (3.5-5.0); Albumin/Globulin Ratio 1.5 (1.1-1.8); Alkaline Phosphatase 112 U/L (38-126); Anion Gap 20.3 mEq/L (5-15); Aspartate Amino Transferase 39 U/L (14-36); Blood Urea Nitrogen 19 mg/dl (7-17); Carbon Dioxide 22 mmol/L (22.0-30.0); Chloride 97 mmol/L (98-107); Estimated Glomerular Filt Rate 82 ml/min (>60); GFR (African American) 99 ML/MIN (>60); Globulin 2.5 g/dL (1.3-3.2); Glucose 247 mg/dl (74-100); Potassium 4.3 mmoL/L (3.5-5.1); Sodium 135 mmol/L (136-145); Total Protein,Serum 6.3 g/dl (6.3-8.2)
[2022-03-20 11:47] LABS: Bilirubin,Total < 0.1 mg/dl (0.2-1.3)
== END ==
PROVIDERS: PCP Family Medicine; Visit Provider Obstetrics & Gynecology Gynecologic Oncology
DX: C54.1 Malignant neoplasm of endometrium (principal)
CPT/HCPCS: 36415; 80053; 85025

== ENCOUNTER → 2022-03-27 09:18 | Outpatient (CLI) | payer MEDICARE, SELFPAY ==
[2022-03-27 09:40] LABS: Basophils % 0.7 % (0.1-2.0); Eosinophils # 0.3 K/mm3 (0.0-0.4); Eosinophils % 4.6 % (0.1-12.0); Hematocrit 32.6 % (37.0-47.0); Hemoglobin 10.6 g/dL (12.2-16.2); Lymphocytes # 2.6 K/mm3 (0.7-4.5); Lymphocytes % 44.6 % (10-50); Mean Corpuscular HGB Conc 32.6 g/dL (31.8-35.4); Mean Corpuscular Hemoglobin 32.1 pg (27.0-31.2); Mean Corpuscular Volume 98.5 fl (81-99); Mean Platelet Volume 7.6 fl (7.4-10.4); Monocytes # 0.3 K/mm3 (0.1-1.0); Monocytes % 5.8 % (1.7-9.3); Neutrophils # 2.6 K/mm3 (1.8-7.8); Neutrophils % 44.2 % (37.0-80.0); Platelet Count 370 K/mm3 (142-424); Red Blood Count 3.31 M/mm3 (4.20-5.40); Red Cell Distribution Width 18.8 % (11.5-17.5); White Blood Count 5.8 K/mm3 (4.8-10.8)
[2022-03-27 11:24] LABS: Blood Urea Nitrogen 20 mg/dl (7-17); Estimated Glomerular Filt Rate 82 ml/min (>60); GFR (African American) 99 ML/MIN (>60)
[2022-03-27 11:25] LABS: Alanine Aminotransferase 34 U/L (12-78); Albumin Level 4.3 g/dl (3.5-5.0); Albumin/Globulin Ratio 1.6 (1.1-1.8); Alkaline Phosphatase 90 U/L (38-126); Aspartate Amino Transferase 44 U/L (14-36); Calcium 9.2 mg/dl (8.4-10.2); Carbon Dioxide 24 mmol/L (22.0-30.0); Globulin 2.7 g/dL (1.3-3.2); Glucose 181 mg/dl (74-100)
[2022-03-27 11:26] LABS: Bilirubin,Total 0.1 mg/dl (0.2-1.3)
[2022-03-27 11:29] LABS: Anion Gap 20.2 mEq/L (5-15); Chloride 99 mmol/L (98-107); Potassium 4.2 mmoL/L (3.5-5.1); Sodium 139 mmol/L (136-145)
== END ==
PROVIDERS: PCP Family Medicine; Visit Provider Obstetrics & Gynecology Gynecologic Oncology
DX: C54.1 Malignant neoplasm of endometrium (principal)
CPT/HCPCS: 36415; 80053; 85025

== ENCOUNTER → 2022-04-03 10:17 | Outpatient (CLI) | payer MEDICARE, SELFPAY ==
[2022-04-03 10:51] LABS: Basophils % 0.8 % (0.1-2.0); Eosinophils # 0.2 K/mm3 (0.0-0.4); Eosinophils % 6.6 % (0.1-12.0); Hematocrit 34.5 % (37.0-47.0); Hemoglobin 10.9 g/dL (12.2-16.2); Lymphocytes # 1.3 K/mm3 (0.7-4.5); Lymphocytes % 43.3 % (10-50); Mean Corpuscular HGB Conc 31.7 g/dL (31.8-35.4); Mean Corpuscular Hemoglobin 31.6 pg (27.0-31.2); Mean Corpuscular Volume 99.8 fl (81-99); Mean Platelet Volume 7.8 fl (7.4-10.4); Monocytes % 1.4 % (1.7-9.3); Neutrophils # 1.5 K/mm3 (1.8-7.8); Neutrophils % 47.9 % (37.0-80.0); Platelet Count 346 K/mm3 (142-424); Red Blood Count 3.46 M/mm3 (4.20-5.40); Red Cell Distribution Width 18.7 % (11.5-17.5); White Blood Count 3.1 K/mm3 (4.8-10.8)
[2022-04-03 12:04] LABS: Alanine Aminotransferase 47 U/L (12-78); Albumin Level 4.1 g/dl (3.5-5.0); Albumin/Globulin Ratio 1.5 (1.1-1.8); Alkaline Phosphatase 73 U/L (38-126); Anion Gap 20.8 mEq/L (5-15); Aspartate Amino Transferase 47 U/L (14-36); Bilirubin,Total 0.2 mg/dl (0.2-1.3); Blood Urea Nitrogen 27 mg/dl (7-17); Calcium 8.9 mg/dl (8.4-10.2); Carbon Dioxide 22 mmol/L (22.0-30.0); Chloride 94 mmol/L (98-107); Estimated Glomerular Filt Rate 70 ml/min (>60); GFR (African American) 85 ML/MIN (>60); Globulin 2.7 g/dL (1.3-3.2); Glucose 166 mg/dl (74-100); Potassium 4.8 mmoL/L (3.5-5.1); Sodium 132 mmol/L (136-145); Total Protein,Serum 6.8 g/dl (6.3-8.2)
== END ==
PROVIDERS: Obstetrics & Gynecology Gynecologic Oncology; PCP Family Medicine; Visit Provider Obstetrics & Gynecology
DX: C54.1 Malignant neoplasm of endometrium (principal)
CPT/HCPCS: 36415; 80053; 85025

== ENCOUNTER → 2022-04-10 09:54 | Outpatient (CLI) | payer MEDICARE, SELFPAY ==
[2022-04-10 10:34] LABS: Eosinophils % 0.5 % (0.1-12.0); Hematocrit 31.4 % (37.0-47.0); Hemoglobin 10.1 g/dL (12.2-16.2); Lymphocytes # 2.3 K/mm3 (0.7-4.5); Lymphocytes % 64.9 % (10-50); Mean Corpuscular HGB Conc 32.3 g/dL (31.8-35.4); Mean Corpuscular Hemoglobin 31.5 pg (27.0-31.2); Mean Corpuscular Volume 97.7 fl (81-99); Monocytes # 0.6 K/mm3 (0.1-1.0); Monocytes % 17.2 % (1.7-9.3); Neutrophils # 0.6 K/mm3 (1.8-7.8); Neutrophils % 16.4 % (37.0-80.0); Platelet Count 289 K/mm3 (142-424); Red Blood Count 3.21 M/mm3 (4.20-5.40); Red Cell Distribution Width 18.9 % (11.5-17.5); White Blood Count 3.5 K/mm3 (4.8-10.8)
[2022-04-10 10:41] LABS: MANUAL DIFFERENTIAL MANUAL DIFFERENTIAL (MANUAL DIFF)
[2022-04-10 11:25] LABS: Anisocytosis 1+; Hypochromasia 1+; Lymphocytes % 69 % (10-50); Macrocytosis 1+; Monocytes % 18 % (2-9); Neutrophils % 13 % (42-76); Ovalocytes 1+; Platelet Estimate Normal; Total Cells Counted 100
[2022-04-10 11:34] LABS: Chloride 99 mmol/L (98-107); Sodium 135 mmol/L (136-145)
[2022-04-10 11:35] LABS: Potassium 5.1 mmoL/L (3.5-5.1)
[2022-04-10 11:37] LABS: Alanine Aminotransferase 33 U/L (12-78); Albumin Level 4.1 g/dl (3.5-5.0); Albumin/Globulin Ratio 1.5 (1.1-1.8); Alkaline Phosphatase 108 U/L (38-126); Anion Gap 17.1 mEq/L (5-15); Aspartate Amino Transferase 31 U/L (14-36); Blood Urea Nitrogen 28 mg/dl (7-17); Carbon Dioxide 24 mmol/L (22.0-30.0); Estimated Glomerular Filt Rate 70 ml/min (>60); GFR (African American) 85 ML/MIN (>60); Globulin 2.7 g/dL (1.3-3.2); Total Protein,Serum 6.8 g/dl (6.3-8.2)
[2022-04-10 11:38] LABS: Calcium 8.7 mg/dl (8.4-10.2); Glucose 131 mg/dl (74-100)
[2022-04-10 11:41] LABS: Bilirubin,Total < 0.1 mg/dl (0.2-1.3)
== END ==
PROVIDERS: Obstetrics & Gynecology Gynecologic Oncology; PCP Family Medicine; Visit Provider Obstetrics & Gynecology
DX: C54.1 Malignant neoplasm of endometrium (principal)
CPT/HCPCS: 36415; 80053; 85007; 85025

== ENCOUNTER → 2022-04-17 09:24 | Outpatient (CLI) | payer MEDICARE, SELFPAY ==
[2022-04-17 09:59] LABS: Basophils # 0.1 K/mm3 (0-0.2); Basophils % 0.8 % (0.1-2.0); Eosinophils % 0.2 % (0.1-12.0); Hemoglobin 9.6 g/dL (12.2-16.2); Lymphocytes % 34.1 % (10-50); Mean Corpuscular HGB Conc 31.9 g/dL (31.8-35.4); Mean Corpuscular Hemoglobin 31.6 pg (27.0-31.2); Mean Corpuscular Volume 99.1 fl (81-99); Mean Platelet Volume 7.7 fl (7.4-10.4); Monocytes # 0.3 K/mm3 (0.1-1.0); Monocytes % 4.6 % (1.7-9.3); Neutrophils # 3.5 K/mm3 (1.8-7.8); Neutrophils % 60.4 % (37.0-80.0); Platelet Count 218 K/mm3 (142-424); Red Blood Count 3.03 M/mm3 (4.20-5.40); White Blood Count 5.8 K/mm3 (4.8-10.8)
[2022-04-17 10:26] LABS: Alanine Aminotransferase 32 U/L (12-78); Albumin Level 3.7 g/dl (3.5-5.0); Albumin/Globulin Ratio 1.5 (1.1-1.8); Alkaline Phosphatase 123 U/L (38-126); Anion Gap 17.4 mEq/L (5-15); Aspartate Amino Transferase 32 U/L (14-36); Bilirubin,Total 0.4 mg/dl (0.2-1.3); Blood Urea Nitrogen 25 mg/dl (7-17); Calcium 8.9 mg/dl (8.4-10.2); Carbon Dioxide 23 mmol/L (22.0-30.0); Chloride 100 mmol/L (98-107); Estimated Glomerular Filt Rate 82 ml/min (>60); GFR (African American) 99 ML/MIN (>60); Globulin 2.5 g/dL (1.3-3.2); Glucose 163 mg/dl (74-100); Potassium 4.4 mmoL/L (3.5-5.1); Sodium 136 mmol/L (136-145); Total Protein,Serum 6.2 g/dl (6.3-8.2)
== END ==
PROVIDERS: Obstetrics & Gynecology Gynecologic Oncology; PCP Family Medicine; Visit Provider Obstetrics & Gynecology
DX: C54.1 Malignant neoplasm of endometrium (principal)
CPT/HCPCS: 36415; 80053; 85025

== ENCOUNTER 2022-04-21 10:52 | Emergency (ER) | payer MEDICARE, SELFPAY ==
[2022-04-21 11:20] VITALS: BP 141/82; PULSE 89; RESP 19; TEMP 36.6; O2SAT 96; BMI 38.0
--- NOTE | 2022-04-21 11:28 | EXP.UTC ---
Discharge Plan Disposition Patient Disposition: Home, Self-Care Condition: Good Prescriptions Prescriptions: New cefdinir 300 mg capsule 300 mg PO BID Qty: 20 0RF phenazopyridine [Pyridium] 200 mg tablet 200 mg PO Q8H 2 Days Qty: 6 0RF No Action metformin 750 mg tablet extended release 24 hr 500 mg PO QPM simvastatin 20 mg tablet 20 mg PO QHS Caltrate 600 plus D 600 mg (1,500 mg)-800 unit tablet,chewable 1 tab PO BID cholecalciferol (vitamin D3) 5,000 unit capsule 5,000 unit PO DAILY cranberry 500 mg capsule 500 mg PO BID irbesartan 150 mg tablet 150 mg PO DAILY gabapentin 300 MG capsule 300 mg PO BID nabumetone 500 MG tablet 500 mg PO BID oxycodone 5 MG tablet 5 mg PO Q6HP PRN (Reason: pain) enoxaparin 40 MG/0.4 ML syringe 40 mg SQ HS prochlorperazine maleate 10 MG tablet 10 mg PO Q6HP PRN (Reason: n/v) sulfamethoxazole-trimethoprim 1 EACH tablet 1 tab PO BID sertraline 25 MG tablet 25 mg PO DAILY hydroxyzine pamoate 25 MG capsule 25 mg PO HS latanoprost (PF) 7.5 ML drops 1 applic OP HS Referrals Follow up/Referrals: Andrew Monson MD [Primary Care Provider] - See instructions Activity Restrictions/Add. Instructions Additional Instructions/Restrictions: *Increase fluids. Water not Soda or Tea *Start antibiotic tomorrow you got a shot in [facility] today and be sure to take as ordered for the FULL length of time although you should start to see improvement over the next 48 hours *Pyridium as needed Remember this medication will turn your urine . This is normal but it will stain what ever it gets on *You should not use Pyridium for more than 48 hours. If so , follow up with your primary physician to review urine culture and ensure that antibiotic is adequate for infection *Be SURE to follow up anytime for new or worsening symptoms with your family doctor. AND in 48 hours for urine culture results with your family doctor, if you do not have a doctor then you may call back to the [facility] for urine culture results and further treatment. We do recommend that you choose and establish care with a Primary Care Physician. ?AND follow up with them ?in 10-14 days to repeat UA to ensure infection is resolved and blood no longer present *Be sure to let your PCP know that we sent urine cultures from the [facility] so they can follow up to ensure that you area the on the correct antibiotic Call your doctor office and make appointment for 48 hours (2 days from today) ?to follow up and get the results of your urine culture and further treatment Clinical Impressions Clinical Impression: Acute cyclitis Instructions Patient Instructions: Acute Cystitis, DI for Acute Cystitis Discharge ED [place] [facility] [place] General Stated complaint: Possible urinary infection, blood in urine Time Seen by Provider: 04/21/22 11:32 History of Present Illness Provider Complaint: Patient states that she has been fighting a UTI for several weeks and has been on several different types of medications States that today she woke up and was still having some achy like pain in her lower back an noticed she had some blood in her urine States that symptoms has returned Denies loss of control of bladder Denies fever, denies chills, denies abdominal pain Related Data Home Medications Medication Instructions Recorded Confirmed calcium carbonate 600 mg-vitamin 1 tab PO BID Supplement 09/11/18 12/31/21 D3 20 mcg (800 unit) chewable tablet (Caltrate 600 plus D) cholecalciferol (vitamin D3) 125 5,000 unit PO DAILY Supplement 09/11/18 12/31/21 mcg (5,000 unit) capsule cranberry 500 mg capsule 500 mg PO BID urine 09/11/18 12/31/21 metformin 750 mg tablet,extended 500 mg PO QPM Diabetes 09/11/18 12/31/21 release 24 hr simvastatin 20 mg tablet 20 mg PO QHS High cholesterol 09/11/18 12/31/21 irbesartan 150 mg tablet 150 mg PO DAILY . 12/12/1812/07
[2022-04-21 11:30] LABS: Apearance,Urine Cloudy (Clear); Blood, Urine 2+ (Negative); Color,Urine Yellow (Yellow); Glucose,Urine (UA) Negative (Negative); Ketones,Urine Negative (Negative); PH,Urine 5.5 (5.0-8.5); Protein,Urine Negative (Negative); Specific Gravity, Urine 1.025 (1.005-1.030)
[2022-04-21 11:31] LABS: Bilirubin,Urine Negative (Negative); UTC Leukocyte Esterase,Urine 1+ (Negative); UTC Nitrate,Urine Negative (Negative); Urobilinogen,Urine 0.2 EU/dl (0.2)
[2022-04-21 11:52] VITALS: BP 141/82; PULSE 89; RESP 19; TEMP 36.6; O2SAT 96
== END 2022-04-21 12:00 | disposition home or self-care (01) ==
PROVIDERS: Emergency Provider Nurse Practitioner; PCP Family Medicine
DX: N30.00 Acute cystitis without hematuria (principal)
CPT/HCPCS: 81003; 87086; 96372; 99212; G0463; J0696

== ENCOUNTER → 2022-06-01 13:44 | Outpatient (CLI) | payer MEDICARE, SELFPAY ==
--- NOTE | 2022-06-01 13:47 | MM_ITS ---
PROCEDURE INFORMATION: Exam: MG Right Diagnostic Breast Tomosynthesis Exam date and time: 06/01/2022 1:40 PM Age: 76 years old Clinical indication: Six-month follow-up for probably benign cluster of cysts on the right at 9 o'clock corresponding to a lobulated superficial mass on mammography, from 10/20/2021. TECHNIQUE: Imaging protocol: Right Diagnostic tomosynthesis and 2D mammography including computer-aided detection (CAD) when performed. Unilateral or bilateral exam. COMPARISON: 1. MG MM DIG MAMM DX UNILAT RT CAD 10/20/2021 2:42 PM 2. MG MM DIG SCREENING MAMM BI W/CAD 10/12/2021 12:55 PM 3. MG DMSB DIG MAMM-SCREEN LYDIA W/CAD 04/25/2017 4:51 PM 4. MG DMSB DIG MAMM-SCREEN LYDIA 05/04/2015 3:21 PM FINDINGS: MAMMOGRAPHY: Spot compression views only. Breast composition: There are scattered areas of fibroglandular density. Mass: Stable lobulated 0.7 cm mass in the upper outer quadrant posteriorly. No suspicious mass. Architectural distortion: None. Calcifications: No suspicious calcifications. Asymmetric density: None. Skin thickening: None. Axillary adenopathy: None. IMPRESSION: No mammographic evidence of malignancy. Patient to be recalled for six-month follow-up sonography as indicated 10/20/2021 report. ASSESSMENT: BI-RADS Category 0: Incomplete- Need Additional Imaging Evaluation and/or Prior Mammograms for Comparison
== END ==
PROVIDERS: PCP Family Medicine; Visit Provider Family Medicine
DX: R92.8 Other abnormal and inconclusive findings on diagnostic imaging of breast (principal)
CPT/HCPCS: 77061; 77065; G0279

== ENCOUNTER → 2022-06-22 12:38 | Outpatient (CLI) | payer MEDICARE, SELFPAY | PROVIDERS: PCP Student in an Organized Health Care Education/Training Program; Visit Provider Student in an Organized Health Care Education/Training Program | DX: R05.9 Cough, unspecified (principal); U07.1 COVID-19 | CPT/HCPCS: C9803; U0003; U0005 ==

== ENCOUNTER → 2022-07-10 09:49 | Outpatient (CLI) | payer MEDICARE, SELFPAY ==
--- NOTE | 2022-07-10 09:53 | US_ITS ---
PROCEDURE INFORMATION: Exam: US Right Breast, Complete Exam date and time: 07/10/2022 10:05 AM Age: 76 years old Clinical indication: Short-term radiographic follow-up for probable cystic change TECHNIQUE: Imaging protocol: Complete ultrasound of all four quadrants of the Right breast and the retroareolar regions, including ultrasound of the axilla when performed. COMPARISON: US BREAST RT COMPLETE 10/20/2021 3:00 PM FINDINGS: Breast: Sonographic images of the right breast including the retroareolar region, all 4 quadrants and the axilla do not demonstrate any solid masses. Few scattered subcentimeter cysts are present . Previously noted probable superficial cluster of microcysts in the 9 o'clock axis 8 cm from the nipple is not seen on the current examination. No architectural distortion or acoustical shadowing. No skin thickening or axillary adenopathy. IMPRESSION: No sonographic evidence of malignancy. Annual mammographic screening is recommended in October 2022 unless otherwise clinically indicated. ASSESSMENT: BI-RADS Category 2: Benign
== END ==
PROVIDERS: PCP Family Medicine; Visit Provider Family Medicine
DX: R92.8 Other abnormal and inconclusive findings on diagnostic imaging of breast (principal)
CPT/HCPCS: 76641

== ENCOUNTER 2022-07-25 10:25 | Emergency (ER) | payer MEDICARE, SELFPAY ==
[2022-07-25 10:25] VITALS: BP 158/105; PULSE 86; RESP 19; TEMP 36.7; O2SAT 94; BMI 34.9
[2022-07-25 10:32] VITALS: BMI 34.9
--- NOTE | 2022-07-25 10:36 | CT_ITS ---
FINAL REPORT TECHNIQUE: Axial CT of the brain with contrast. Coronal reformatted images were obtained. This study was performed with techniques to keep radiation doses as low as reasonably achievable, (ALARA). Individualized dose reduction techniques using automated exposure control or adjustment of mA and/or kV according to the patient's size were employed. CLINICAL HISTORY: concern for orbital cellulitis FINDINGS: There is no mass effect or midline shift. There is no hydrocephalus. The ventricles are symmetric in size and configuration. There is no extra-axial or intraparenchymal hemorrhage. The posterior fossa is without acute abnormality. The basilar cisterns are preserved. There is left periorbital soft tissue edema. No acute osseous abnormality is identified. No abnormal contrast enhancement is seen. IMPRESSION: No acute intracranial abnormality. Left periorbital soft tissue edema. Please see CT face report. Reviewed, Interpreted and Dictated by Delores Esquivel MD Transcribed by Lynda Handy Authenticated and [facility]
--- NOTE | 2022-07-25 10:36 | CT_ITS ---
FINAL REPORT TECHNIQUE: Thin section axial CT images with coronal reformats were obtained through the neck after the administration of IV contrast. This study was performed with techniques to keep radiation doses as low as reasonably achievable (ALARA). Individualized dose reduction techniques using automated exposure control or adjustment of mA and/or kV according to the patient''s size were employed. CLINICAL HISTORY: concern for infection FINDINGS: The nasopharynx, oropharynx, epiglottis, and larynx are unremarkable. The thyroid is homogeneous. The salivary glands are without acute abnormality. Left orbital soft tissue edema is noted. There is no evidence of lymph adenopathy or fluid collection in the neck. Limited images of the lung apices are unremarkable. No acute osseous abnormality is identified. IMPRESSION: No acute abnormality in the neck. Left periorbital soft tissue edema. Please see CT face report. Reviewed, Interpreted and Dictated by Delores Esquivel MD Transcribed by Lynda Handy Authenticated and [facility]
--- NOTE | 2022-07-25 10:36 | CT_ITS ---
FINAL REPORT TECHNIQUE: After the administration of IV contrast, axial images through the facial bones was performed by computed tomography. Sagittal and coronal reformatted images were obtained and reviewed. This study was performed with techniques to keep radiation doses as low as reasonably achievable (ALARA). Individualized dose reduction techniques using automated exposure control or adjustment of mA and/or kV according to the patient's size were employed. CLINICAL HISTORY: concern for orbital cellulitis FINDINGS: There is no acute osseous abnormality. There is very mild mucoperiosteal thickening of the maxillary sinuses. The remaining paranasal sinuses are clear. The mastoid air cells are clear. There is both a left supraorbital and left infraorbital soft tissue edema. No loculated fluid collection is seen to suggest an abscess. The retro-orbital fat is within normal limits. The extraocular muscles are within normal limits. There is also left frontal scalp edema. IMPRESSION: No acute osseous abnormality. Left periorbital soft tissue edema without abscess or retro-orbital extension, favor infectious or inflammatory etiology. Reviewed, Interpreted and Dictated by Delores Esquivel MD Transcribed by Lynda Handy Authenticated and [facility]
[2022-07-25 10:41] VITALS: BP 148/78; PULSE 87; RESP 17; O2SAT 94
[2022-07-25 10:56] LABS: Basophils # 0.1 K/mm3 (0-0.2); Basophils % 0.9 % (0.1-2.0); Eosinophils # 0.3 K/mm3 (0.0-0.4); Eosinophils % 2.9 % (0.1-12.0); Hemoglobin 11.8 g/dL (12.2-16.2); Lymphocytes # 3.2 K/mm3 (0.7-4.5); Lymphocytes % 36.7 % (10-50); Mean Corpuscular HGB Conc 32.7 g/dL (31.8-35.4); Mean Corpuscular Hemoglobin 31.5 pg (27.0-31.2); Mean Corpuscular Volume 96.3 fl (81-99); Mean Platelet Volume 7.9 fl (7.4-10.4); Monocytes # 0.3 K/mm3 (0.1-1.0); Neutrophils # 4.8 K/mm3 (1.8-7.8); Neutrophils % 55.7 % (37.0-80.0); Platelet Count 377 K/mm3 (142-424); Red Blood Count 3.74 M/mm3 (4.20-5.40); White Blood Count 8.6 K/mm3 (4.8-10.8)
[2022-07-25 10:57] LABS: Chloride 104 mmol/L (98-107)
[2022-07-25 10:58] LABS: Chloride 104 mmol/L (98-107); Potassium 4.2 mmoL/L (3.5-5.1); Sodium 138 mmol/L (136-145); Sodium 139 mmol/L (136-145)
[2022-07-25 10:59] LABS: Potassium 4.2 mmoL/L (3.5-5.1)
[2022-07-25 11:00] LABS: Alanine Aminotransferase 36 U/L (12-78); Aspartate Amino Transferase 41 U/L (14-36); Blood Urea Nitrogen 17 mg/dl (7-17); Creatinine Clearance Estimated 81 mL/min (50-200); Estimated Glomerular Filt Rate 82 ml/min (>60); GFR (African American) 99 ML/MIN (>60)
[2022-07-25 11:01] LABS: Alanine Aminotransferase 36 U/L (12-78); Albumin Level 4.4 g/dl (3.5-5.0); Albumin/Globulin Ratio 1.4 (1.1-1.8); Alkaline Phosphatase 71 U/L (38-126); Alkaline Phosphatase 75 U/L (38-126); Anion Gap 16.2 mEq/L (5-15); Anion Gap 17.2 mEq/L (5-15); Aspartate Amino Transferase 42 U/L (14-36); Bilirubin,Total 0.4 mg/dl (0.2-1.3); Bilirubin,Total 0.5 mg/dl (0.2-1.3); Blood Urea Nitrogen 18 mg/dl (7-17); Carbon Dioxide 22 mmol/L (22.0-30.0); Creatinine Clearance Estimated 81 mL/min (50-200); Estimated Glomerular Filt Rate 82 ml/min (>60); GFR (African American) 99 ML/MIN (>60); Globulin 3.1 g/dL (1.3-3.2); Glucose 169 mg/dl (74-100); Magnesium 1.3 mg/dl (1.6-2.3); Total Protein,Serum 7.5 g/dl (6.3-8.2)
[2022-07-25 11:02] LABS: Calcium 8.9 mg/dl (8.4-10.2); Glucose 169 mg/dl (74-100)
[2022-07-25 11:07] LABS: C-Reactive Protein 9.4 mg/L (0-4)
[2022-07-25 11:30] VITALS: BP 141/79; PULSE 75; O2SAT 94
--- NOTE | 2022-07-25 11:45 | PC.NURSE ---
pt to restroom with assistance of daughter. No complications
[2022-07-25 14:03] VITALS: BP 159/94; PULSE 81; RESP 17; TEMP 36.7; O2SAT 96
--- NOTE | 2022-07-25 18:43 | HMH.EDGENADL ---
Discharge Plan Disposition Patient Disposition: Home, Self-Care Condition: Good Prescriptions Prescriptions: New prednisone 50 mg tablet 50 mg PO DAILY 3 Days Qty: 3 0RF No Action benzonatate 100 mg capsule 100 mg PO BID PRN (Reason: cough) Qty: 30 0RF metformin 750 mg tablet extended release 24 hr 500 mg PO QPM simvastatin 20 mg tablet 20 mg PO QHS Caltrate 600 plus D 600 mg (1,500 mg)-800 unit tablet,chewable 1 tab PO BID cholecalciferol (vitamin D3) 5,000 unit capsule 5,000 unit PO DAILY cranberry 500 mg capsule 500 mg PO BID irbesartan 150 mg tablet 150 mg PO DAILY gabapentin 300 MG capsule 300 mg PO BID nabumetone 500 MG tablet 500 mg PO BID oxycodone 5 MG tablet 5 mg PO Q6HP PRN (Reason: pain) enoxaparin 40 MG/0.4 ML syringe 40 mg SQ HS prochlorperazine maleate 10 MG tablet 10 mg PO Q6HP PRN (Reason: n/v) sertraline 25 MG tablet 25 mg PO DAILY hydroxyzine pamoate 25 MG capsule 25 mg PO HS latanoprost (PF) 7.5 ML drops 1 applic OP HS Referrals Follow up/Referrals: Andrew Monson MD [Primary Care Provider] - See instructions Clinical Impressions Clinical Impression: Allergic reaction Instructions Patient Instructions: DI for General Allergic Reactions Discharge ED Provider: Tino Solo General Adult HPI General Chief complaint: Allergic Reaction Stated complaint: Tongue swelling Time Seen by Provider: 07/25/22 10:30 Mode of Arrival: Ambulatory Source of Information: Patient Limitations: No Limitations Description of Symptoms (Recalled from ER Triage Doc. by RN): Patient reports facial swelling that started last PM and worse this AM. Denies new products or food exposures. Airway patent. NAD History of Present Illness HPI narrative: Patient is a 76-year-old female with a past medical history of uterine cancer who is finished chemotherapy, hypertension, diabetes who presents with concern for allergic reaction. She states that last night she started to get some left-sided facial swelling and she said she woke up this morning and it was substantially worse. She has not started any new medications. Has not taken chemo recently. No new detergents. She says that she does not have any shortness of breath. Denies any fever or chills. She says it is worse around her left eye. Related Data Home Medications Medication Instructions Recorded Confirmed calcium carbonate 600 mg-vitamin 1 tab PO BID Supplement 09/11/18 12/31/21 D3 20 mcg (800 unit) chewable tablet (Caltrate 600 plus D) cholecalciferol (vitamin D3) 125 5,000 unit PO DAILY Supplement 09/11/18 12/31/21 mcg (5,000 unit) capsule cranberry 500 mg capsule 500 mg PO BID urine 09/11/18 12/31/21 metformin 750 mg tablet,extended 500 mg PO QPM Diabetes 09/11/18 12/31/21 release 24 hr simvastatin 20 mg tablet 20 mg PO QHS High cholesterol 09/11/18 12/31/21 irbesartan 150 mg tablet 150 mg PO DAILY . 12/12/18 12/31/21 gabapentin 300 mg capsule 300 mg PO BID Pain 08/11/21 12/31/21 enoxaparin 40 mg/0.4 mL 40 mg SQ HS s/p 12/31/21 12/31/21 subcutaneous syringe hydroxyzine pamoate 25 mg capsule 25 mg PO HS sleep 12/31/21 12/31/21 latanoprost (PF) 0.005 % eye drops 1 applic ophthalmic (eye) HS eyes 12/31/21 12/31/21 nabumetone 500 mg tablet 500 mg PO BID . 12/31/21 12/31/21 oxycodone 5 mg tablet 5 mg PO Q6HP PRN pain 12/31/21 12/31/21 prochlorperazine maleate 10 mg 10 mg PO Q6HP PRN n/v 12/31/21 12/31/21 tablet sertraline 25 mg tablet 25 mg PO DAILY Depression 12/31/21 12/31/21 Previous Rx's Medication Instructions Recorded benzonatate 100 mg capsule 100 mg PO BID PRN cough #30 caps 06/22/22 prednisone 50 mg tablet 50 mg PO DAILY 3 days #3 tabs 07/25/22 Allergies Allergy/AdvReac Type Severity Reaction Status Date / Time codeine [CODEINE] Allergy Unknown NA-NAUSEA/V Verified 06/22/22 11:57 OMITING PFSH
== END 2022-07-25 14:03 | disposition home or self-care (01) ==
PROVIDERS: Emergency Provider Student in an Organized Health Care Education/Training Program; PCP Family Medicine
DX: T78.40XA Allergy, unspecified, initial encounter (principal); I10 Essential (primary) hypertension; E11.9 Type 2 diabetes mellitus without complications; Z85.42 Personal history of malignant neoplasm of other parts of uterus; Z92.21 Personal history of antineoplastic chemotherapy; E78.5 Hyperlipidemia, unspecified; Z87.440 Personal history of urinary (tract) infections; Z90.49 Acquired absence of other specified parts of digestive tract; Z90.710 Acquired absence of both cervix and uterus
CPT/HCPCS: 70460; 70487; 70491; 80053; 83735; 85025; 86140; 96374; 96375; 99285; Q9967

== ENCOUNTER → 2022-10-30 10:24 | Outpatient (CLI) | payer MEDICARE, SELFPAY ==
[2022-10-30 11:00] LABS: Basophils % 0.6 % (0.1-2.0); Eosinophils # 0.3 K/mm3 (0.0-0.4); Hematocrit 35.6 % (37.0-47.0); Hemoglobin 11.4 g/dL (12.2-16.2); Lymphocytes # 2.4 K/mm3 (0.7-4.5); Lymphocytes % 35.5 % (10-50); Mean Corpuscular HGB Conc 32.1 g/dL (31.8-35.4); Mean Corpuscular Hemoglobin 29.5 pg (27.0-31.2); Mean Platelet Volume 7.2 fl (7.4-10.4); Monocytes # 0.4 K/mm3 (0.1-1.0); Monocytes % 6.3 % (1.7-9.3); Neutrophils # 3.6 K/mm3 (1.8-7.8); Neutrophils % 53.6 % (37.0-80.0); Platelet Count 279 K/mm3 (142-424); Red Blood Count 3.87 M/mm3 (4.20-5.40); Red Cell Distribution Width 15.7 % (11.5-17.5); White Blood Count 6.8 K/mm3 (4.8-10.8)
[2022-10-30 11:58] LABS: Alanine Aminotransferase 26 U/L (12-78); Albumin Level 3.7 g/dl (3.5-5.0); Albumin/Globulin Ratio 1.3 (1.1-1.8); Alkaline Phosphatase 85 U/L (38-126); Anion Gap 13.4 mEq/L (5-15); Aspartate Amino Transferase 29 U/L (14-36); Bilirubin,Total 0.3 mg/dl (0.2-1.3); Blood Urea Nitrogen 18 mg/dl (7-17); Calcium 8.7 mg/dl (8.4-10.2); Carbon Dioxide 27 mmol/L (22.0-30.0); Chloride 101 mmol/L (98-107); Estimated Glomerular Filt Rate 82 ml/min (>60); GFR (African American) 99 ML/MIN (>60); Globulin 2.8 g/dL (1.3-3.2); Glucose 162 mg/dl (74-100); Potassium 4.4 mmoL/L (3.5-5.1); Sodium 137 mmol/L (136-145); Total Protein,Serum 6.5 g/dl (6.3-8.2)
== END ==
PROVIDERS: PCP Family Medicine; Visit Provider Obstetrics & Gynecology Gynecologic Oncology
DX: C54.1 Malignant neoplasm of endometrium (principal)
CPT/HCPCS: 36415; 80053; 85025

== ENCOUNTER → 2022-11-05 08:00 | Outpatient (CLI) | payer MEDICARE, SELFPAY ==
[2022-11-05 08:39] LABS: Basophils % 0.5 % (0.1-2.0); Eosinophils # 0.3 K/mm3 (0.0-0.4); Hematocrit 34.3 % (37.0-47.0); Hemoglobin 11.2 g/dL (12.2-16.2); Lymphocytes # 2.1 K/mm3 (0.7-4.5); Mean Corpuscular HGB Conc 32.7 g/dL (31.8-35.4); Mean Corpuscular Hemoglobin 29.7 pg (27.0-31.2); Mean Corpuscular Volume 90.8 fl (81-99); Mean Platelet Volume 7.6 fl (7.4-10.4); Monocytes # 0.4 K/mm3 (0.1-1.0); Monocytes % 6.2 % (1.7-9.3); Neutrophils # 2.8 K/mm3 (1.8-7.8); Neutrophils % 50.3 % (37.0-80.0); Platelet Count 266 K/mm3 (142-424); Red Blood Count 3.77 M/mm3 (4.20-5.40); Red Cell Distribution Width 15.4 % (11.5-17.5); White Blood Count 5.6 K/mm3 (4.8-10.8)
[2022-11-05 09:26] LABS: Chloride 101 mmol/L (98-107); Potassium 4.7 mmoL/L (3.5-5.1); Sodium 136 mmol/L (136-145)
[2022-11-05 09:29] LABS: Alanine Aminotransferase 22 U/L (12-78); Albumin Level 3.7 g/dl (3.5-5.0); Albumin/Globulin Ratio 1.4 (1.1-1.8); Alkaline Phosphatase 87 U/L (38-126); Anion Gap 12.7 mEq/L (5-15); Aspartate Amino Transferase 29 U/L (14-36); Bilirubin,Total 0.3 mg/dl (0.2-1.3); Blood Urea Nitrogen 22 mg/dl (7-17); Calcium 8.5 mg/dl (8.4-10.2); Carbon Dioxide 27 mmol/L (22.0-30.0); Estimated Glomerular Filt Rate 70 ml/min (>60); GFR (African American) 85 ML/MIN (>60); Globulin 2.6 g/dL (1.3-3.2); Glucose 186 mg/dl (74-100); Total Protein,Serum 6.3 g/dl (6.3-8.2)
== END ==
PROVIDERS: PCP Family Medicine; Visit Provider Obstetrics & Gynecology Gynecologic Oncology
DX: C54.1 Malignant neoplasm of endometrium (principal)
CPT/HCPCS: 36415; 80053; 85025

== ENCOUNTER → 2022-11-12 14:13 | Outpatient (CLI) | payer MEDICARE, SELFPAY ==
[2022-11-12 15:12] LABS: Basophils % 0.5 % (0.1-2.0); Eosinophils # 0.3 K/mm3 (0.0-0.4); Eosinophils % 4.8 % (0.1-12.0); Hematocrit 33.9 % (37.0-47.0); Hemoglobin 11.3 g/dL (12.2-16.2); Lymphocytes # 2.4 K/mm3 (0.7-4.5); Lymphocytes % 38.6 % (10-50); Mean Corpuscular HGB Conc 33.3 g/dL (31.8-35.4); Mean Corpuscular Hemoglobin 30.1 pg (27.0-31.2); Mean Corpuscular Volume 90.5 fl (81-99); Mean Platelet Volume 7.3 fl (7.4-10.4); Monocytes # 0.4 K/mm3 (0.1-1.0); Monocytes % 5.9 % (1.7-9.3); Neutrophils # 3.2 K/mm3 (1.8-7.8); Neutrophils % 50.2 % (37.0-80.0); Platelet Count 286 K/mm3 (142-424); Red Blood Count 3.74 M/mm3 (4.20-5.40); Red Cell Distribution Width 15.6 % (11.5-17.5); White Blood Count 6.3 K/mm3 (4.8-10.8)
[2022-11-12 15:42] LABS: Chloride 97 mmol/L (98-107); Potassium 3.9 mmoL/L (3.5-5.1); Sodium 136 mmol/L (136-145)
[2022-11-12 15:45] LABS: Alanine Aminotransferase 30 U/L (12-78); Albumin Level 3.7 g/dl (3.5-5.0); Albumin/Globulin Ratio 1.4 (1.1-1.8); Alkaline Phosphatase 83 U/L (38-126); Anion Gap 15.9 mEq/L (5-15); Aspartate Amino Transferase 39 U/L (14-36); Bilirubin,Total 0.4 mg/dl (0.2-1.3); Blood Urea Nitrogen 22 mg/dl (7-17); Carbon Dioxide 27 mmol/L (22.0-30.0); Estimated Glomerular Filt Rate 82 ml/min (>60); GFR (African American) 99 ML/MIN (>60); Globulin 2.6 g/dL (1.3-3.2); Total Protein,Serum 6.3 g/dl (6.3-8.2)
[2022-11-12 15:46] LABS: Calcium 8.9 mg/dl (8.4-10.2); Glucose 182 mg/dl (74-100)
== END ==
PROVIDERS: PCP Family Medicine; Visit Provider Obstetrics & Gynecology Gynecologic Oncology
DX: C54.1 Malignant neoplasm of endometrium (principal)
CPT/HCPCS: 36415; 80053; 85025

== ENCOUNTER 2022-11-14 13:24 | Emergency (ER) | payer MEDICARE, SELFPAY ==
[2022-11-14] VITALS (8 sets, daily range): BP systolic 174–217; BP diastolic 80–100; PULSE 55–65; RESP 15–20; TEMP 36.6–37.2; O2SAT 95–98; BMI 36.5
--- NOTE | 2022-11-14 13:40 | CT_ITS ---
FINAL REPORT TECHNIQUE: Noncontrast exam CLINICAL HISTORY: htn, headache COMPARISON: 07/25/2022 FINDINGS: No abnormal density is seen. Ventricles are normal. There is no hemorrhage. No mass effect is seen. Bone windows show no evidence of fracture. IMPRESSION: No acute findings Reviewed, Interpreted and Dictated by Ignacio Almodovar MD Transcribed by Rea Erwin Authenticated and . [facility]
--- NOTE | 2022-11-14 13:56 | PC.NURSE ---
pt to CT via wheelchair
--- NOTE | 2022-11-14 14:05 | HMH.EDGENADL ---
Discharge Plan Disposition Patient Disposition: Home, Self-Care Chief Complaint: Headache Prescriptions Prescriptions: No Action benzonatate 100 mg capsule 100 mg PO BID PRN (Reason: cough) Qty: 30 0RF metformin 750 mg tablet extended release 24 hr 500 mg PO QPM simvastatin 20 mg tablet 20 mg PO QHS Caltrate 600 plus D 600 mg (1,500 mg)-800 unit tablet,chewable 1 tab PO BID cholecalciferol (vitamin D3) 5,000 unit capsule 5,000 unit PO DAILY cranberry 500 mg capsule 500 mg PO BID irbesartan 150 mg tablet 150 mg PO DAILY prednisone 50 mg tablet 50 mg PO DAILY 3 Days Qty: 3 0RF gabapentin 300 MG capsule 300 mg PO BID nabumetone 500 MG tablet 500 mg PO BID oxycodone 5 MG tablet 5 mg PO Q6HP PRN (Reason: pain) enoxaparin 40 MG/0.4 ML syringe 40 mg SQ HS prochlorperazine maleate 10 MG tablet 10 mg PO Q6HP PRN (Reason: n/v) sertraline 25 MG tablet 25 mg PO DAILY hydroxyzine pamoate 25 MG capsule 25 mg PO HS latanoprost (PF) 7.5 ML drops 1 applic OP HS Referrals Follow up/Referrals: Andrew Monson MD [Primary Care Provider] - See instructions Activity Restrictions/Add. Instructions Additional Instructions/Restrictions: Return for worsening headache blood pressure issues or any other concerns within the next 8 hours otherwise follow-up with your primary care physician within the next few days Clinical Impressions Clinical Impression: Hypertensive urgency Discharge ED Provider: Orlando Aponte General Adult HPI General Chief complaint: Headache Stated complaint: Blood Pressure high Time Seen by Provider: 11/14/22 13:35 Mode of Arrival: Ambulatory Source of Information: Patient Limitations: No Limitations Description of Symptoms (Recalled from ER Triage Doc. by RN): pt comes in via wheelchair with daughters. pt does have active chemotherapy treatment plan. pt had last treatment on saturday11/12/22 with drug Bevacizumab. pts daughter states that high blood pressure is side effect of chemo medication. pts daughter states that she has had high blood pressure for a few days, but today pt does complain of headache, and generally not feeling well. History of Present Illness HPI narrative: 77-year-old female presents after infusion today with a drug Bevacizumab. She was at clinic today and had elevated blood pressure 210 systolic and was sent to the emergency department for evaluation. Reportedly this is acute side effect of the medicine at some points. She has a dull headache worse in the back of her head as well today. No blood thinners no trauma. No chest pain or shortness of air. No abdominal pain or vomiting today. Related Data Home Medications Medication Instructions Recorded Confirmed calcium carbonate 600 mg-vitamin 1 tab PO BID Supplement 09/11/18 12/31/21 D3 20 mcg (800 unit) chewable tablet (Caltrate 600 plus D) cholecalciferol (vitamin D3) 125 5,000 unit PO DAILY Supplement 09/11/18 12/31/21 mcg (5,000 unit) capsule cranberry 500 mg capsule 500 mg PO BID urine 09/11/18 12/31/21 metformin 750 mg tablet,extended 500 mg PO QPM Diabetes 09/11/18 12/31/21 release 24 hr simvastatin 20 mg tablet 20 mg PO QHS High cholesterol 09/11/18 12/31/21 irbesartan 150 mg tablet 150 mg PO DAILY . 12/12/18 12/31/21 gabapentin 300 mg capsule 300 mg PO BID Pain 08/11/21 12/31/21 enoxaparin 40 mg/0.4 mL 40 mg SQ HS s/p 12/31/21 12/31/21 subcutaneous syringe hydroxyzine pamoate 25 mg capsule 25 mg PO HS sleep 12/31/21 12/31/21 latanoprost (PF) 0.005 % eye drops 1 applic ophthalmic (eye) HS eyes 12/31/21 12/31/21 nabumetone 500 mg tablet 500 mg PO BID . 12/31/21 12/31/21 oxycodone 5 mg tablet 5 mg PO Q6HP PRN pain 12/31/21 12/31/21 prochlorperazine maleate 10 mg 10 mg PO Q6HP PRN n/v 12/31/21 12/31/21 tablet sertraline 25 mg tablet 25 mg PO DAILY Depression 12/31/21 12/31/21 Previous Rx's Medication Instructio
[2022-11-14 14:10] LABS: Alanine Aminotransferase 32 U/L (12-78); Albumin Level 4.1 g/dl (3.5-5.0); Albumin/Globulin Ratio 1.2 (1.1-1.8); Alkaline Phosphatase 81 U/L (38-126); Anion Gap 19.8 mEq/L (5-15); Aspartate Amino Transferase 42 U/L (14-36); Bilirubin,Total 0.5 mg/dl (0.2-1.3); Blood Urea Nitrogen 16 mg/dl (7-17); Carbon Dioxide 25 mmol/L (22.0-30.0); Chloride 95 mmol/L (98-107); Creatinine Clearance Estimated 84 mL/min (50-200); Estimated Glomerular Filt Rate 97 ml/min (>60); GFR (African American) 118 ML/MIN (>60); Globulin 3.3 g/dL (1.3-3.2); Glucose 204 mg/dl (74-100); Potassium 3.8 mmoL/L (3.5-5.1); Sodium 136 mmol/L (136-145); Total Protein,Serum 7.4 g/dl (6.3-8.2)
[2022-11-14 14:14] LABS: Basophils % 0.5 % (0.1-2.0); Eosinophils # 0.3 K/mm3 (0.0-0.4); Eosinophils % 4.9 % (0.1-12.0); Hematocrit 37.3 % (37.0-47.0); Lymphocytes % 35.8 % (10-50); Mean Corpuscular HGB Conc 32.2 g/dL (31.8-35.4); Mean Corpuscular Hemoglobin 29.4 pg (27.0-31.2); Mean Corpuscular Volume 91.2 fl (81-99); Mean Platelet Volume 7.1 fl (7.4-10.4); Monocytes # 0.3 K/mm3 (0.1-1.0); Monocytes % 5.9 % (1.7-9.3); Neutrophils # 2.9 K/mm3 (1.8-7.8); Platelet Count 266 K/mm3 (142-424); Red Blood Count 4.09 M/mm3 (4.20-5.40); Red Cell Distribution Width 15.6 % (11.5-17.5); White Blood Count 5.6 K/mm3 (4.8-10.8)
[2022-11-14 14:25] LABS: Troponin I < 0.01 ng/ml (0.00-0.034)
--- NOTE | 2022-11-14 14:57 | PC.NURSE ---
rounded on pt, no complaints or requests at this time
--- NOTE | 2022-11-14 15:21 | PC.NURSE ---
pt up to restroom and given a pillow
[2022-11-14 15:23] LABS: Microscopic, Urine URINE MICROSCOPIC (MICROSCOPIC)
[2022-11-14 15:31] LABS: Appearance,Urine CLEAR (Clear); Bilirubin,Urine Negative (Negative); Blood, Urine TRACE-I (Negative); Color,Urine YELLOW (Yellow); Glucose,Urine (UA) Negative (Negative); Ketones,Urine Negative (Negative); Leukocyte Esterase,Urine Negative (Negative); Nitrate,Urine Negative (Negative); Protein,Urine 1+ (Negative); Urobilinogen,Urine 0.2 EU/dl (0.2)
[2022-11-14 16:22] LABS: RBC,Urine Occasional #/hpf (0-3)
== END 2022-11-14 16:02 | disposition home or self-care (01) ==
PROVIDERS: Emergency Provider Emergency Medicine; PCP Family Medicine
DX: I16.0 Hypertensive urgency (principal); R51.9 Headache, unspecified
CPT/HCPCS: 70450; 80053; 81001; 84484; 85025; 96361; 96374; 96375; 99284; 99285

== ENCOUNTER → 2022-11-21 09:41 | Outpatient (CLI) | payer MEDICARE, SELFPAY ==
[2022-11-21 10:06] LABS: Basophils % 0.6 % (0.1-2.0); Eosinophils # 0.3 K/mm3 (0.0-0.4); Eosinophils % 3.5 % (0.1-12.0); Hematocrit 36.2 % (37.0-47.0); Hemoglobin 11.6 g/dL (12.2-16.2); Lymphocytes # 2.4 K/mm3 (0.7-4.5); Lymphocytes % 33.4 % (10-50); Mean Corpuscular HGB Conc 32.1 g/dL (31.8-35.4); Mean Corpuscular Hemoglobin 29.3 pg (27.0-31.2); Mean Corpuscular Volume 91.2 fl (81-99); Mean Platelet Volume 8.2 fl (7.4-10.4); Monocytes # 0.5 K/mm3 (0.1-1.0); Monocytes % 7.4 % (1.7-9.3); Neutrophils # 3.9 K/mm3 (1.8-7.8); Neutrophils % 55.1 % (37.0-80.0); Platelet Count 268 K/mm3 (142-424); Red Blood Count 3.97 M/mm3 (4.20-5.40); White Blood Count 7.2 K/mm3 (4.8-10.8)
[2022-11-21 10:25] LABS: Alanine Aminotransferase 34 U/L (12-78); Albumin/Globulin Ratio 1.5 (1.1-1.8); Alkaline Phosphatase 82 U/L (38-126); Anion Gap 18.2 mEq/L (5-15); Aspartate Amino Transferase 42 U/L (14-36); Bilirubin,Total 0.4 mg/dl (0.2-1.3); Blood Urea Nitrogen 26 mg/dl (7-17); Calcium 9.3 mg/dl (8.4-10.2); Carbon Dioxide 26 mmol/L (22.0-30.0); Chloride 97 mmol/L (98-107); Estimated Glomerular Filt Rate 82 ml/min (>60); GFR (African American) 99 ML/MIN (>60); Globulin 2.7 g/dL (1.3-3.2); Glucose 161 mg/dl (74-100); Potassium 4.2 mmoL/L (3.5-5.1); Sodium 137 mmol/L (136-145); Total Protein,Serum 6.7 g/dl (6.3-8.2)
== END ==
PROVIDERS: PCP Family Medicine; Visit Provider Obstetrics & Gynecology Gynecologic Oncology
DX: C54.1 Malignant neoplasm of endometrium (principal)
CPT/HCPCS: 36415; 80053; 85025

== ENCOUNTER → 2022-11-27 10:03 | Outpatient (CLI) | payer MEDICARE, SELFPAY ==
[2022-11-27 11:38] LABS: Basophils # 0.1 K/mm3 (0-0.2); Basophils % 0.8 % (0.1-2.0); Eosinophils # 0.3 K/mm3 (0.0-0.4); Hematocrit 37.3 % (37.0-47.0); Lymphocytes # 2.3 K/mm3 (0.7-4.5); Lymphocytes % 33.5 % (10-50); Mean Corpuscular HGB Conc 32.1 g/dL (31.8-35.4); Mean Corpuscular Hemoglobin 29.7 pg (27.0-31.2); Mean Corpuscular Volume 92.8 fl (81-99); Mean Platelet Volume 7.2 fl (7.4-10.4); Monocytes # 0.3 K/mm3 (0.1-1.0); Neutrophils # 3.9 K/mm3 (1.8-7.8); Neutrophils % 56.8 % (37.0-80.0); Platelet Count 265 K/mm3 (142-424); Red Blood Count 4.02 M/mm3 (4.20-5.40); Red Cell Distribution Width 16.3 % (11.5-17.5); White Blood Count 6.9 K/mm3 (4.8-10.8)
[2022-11-27 12:35] LABS: Chloride 94 mmol/L (98-107); Potassium 4.4 mmoL/L (3.5-5.1); Sodium 137 mmol/L (136-145)
[2022-11-27 12:38] LABS: Alanine Aminotransferase 46 U/L (12-78); Albumin Level 3.9 g/dl (3.5-5.0); Albumin/Globulin Ratio 1.4 (1.1-1.8); Alkaline Phosphatase 84 U/L (38-126); Anion Gap 22.4 mEq/L (5-15); Aspartate Amino Transferase 58 U/L (14-36); Bilirubin,Total 0.4 mg/dl (0.2-1.3); Blood Urea Nitrogen 21 mg/dl (7-17); Calcium 9.4 mg/dl (8.4-10.2); Carbon Dioxide 25 mmol/L (22.0-30.0); Estimated Glomerular Filt Rate 70 ml/min (>60); GFR (African American) 85 ML/MIN (>60); Globulin 2.8 g/dL (1.3-3.2); Glucose 238 mg/dl (74-100); Total Protein,Serum 6.7 g/dl (6.3-8.2)
== END ==
PROVIDERS: PCP Family Medicine; Visit Provider Obstetrics & Gynecology Gynecologic Oncology
DX: C54.1 Malignant neoplasm of endometrium (principal)
CPT/HCPCS: 36415; 80053; 85025

== ENCOUNTER → 2022-12-11 11:04 | Outpatient (CLI) | payer MEDICARE, SELFPAY ==
[2022-12-11 12:23] LABS: Chloride 97 mmol/L (98-107); Potassium 4.2 mmoL/L (3.5-5.1); Sodium 136 mmol/L (136-145)
[2022-12-11 12:26] LABS: Alanine Aminotransferase 38 U/L (12-78); Albumin Level 3.9 g/dl (3.5-5.0); Albumin/Globulin Ratio 1.4 (1.1-1.8); Alkaline Phosphatase 91 U/L (38-126); Anion Gap 17.2 mEq/L (5-15); Aspartate Amino Transferase 44 U/L (14-36); Bilirubin,Total 0.3 mg/dl (0.2-1.3); Blood Urea Nitrogen 28 mg/dl (7-17); Calcium 9.8 mg/dl (8.4-10.2); Carbon Dioxide 26 mmol/L (22.0-30.0); Estimated Glomerular Filt Rate 70 ml/min (>60); GFR (African American) 85 ML/MIN (>60); Globulin 2.8 g/dL (1.3-3.2); Glucose 163 mg/dl (74-100); Total Protein,Serum 6.7 g/dl (6.3-8.2)
[2022-12-11 13:53] LABS: Basophils # 0.1 K/mm3 (0-0.2); Basophils % 0.7 % (0.1-2.0); Eosinophils # 0.3 K/mm3 (0.0-0.4); Eosinophils % 3.7 % (0.1-12.0); Hematocrit 35.8 % (37.0-47.0); Hemoglobin 11.6 g/dL (12.2-16.2); Lymphocytes # 2.7 K/mm3 (0.7-4.5); Lymphocytes % 37.2 % (10-50); Mean Corpuscular HGB Conc 32.3 g/dL (31.8-35.4); Mean Corpuscular Hemoglobin 29.3 pg (27.0-31.2); Mean Corpuscular Volume 90.6 fl (81-99); Mean Platelet Volume 6.3 fl (7.4-10.4); Monocytes # 0.4 K/mm3 (0.1-1.0); Monocytes % 5.4 % (1.7-9.3); Neutrophils # 3.8 K/mm3 (1.8-7.8); Platelet Count 228 K/mm3 (142-424); Red Blood Count 3.96 M/mm3 (4.20-5.40); White Blood Count 7.2 K/mm3 (4.8-10.8)
== END ==
PROVIDERS: PCP Family Medicine; Visit Provider Obstetrics & Gynecology Gynecologic Oncology
DX: C54.1 Malignant neoplasm of endometrium (principal)
CPT/HCPCS: 36415; 80053; 85025

== ENCOUNTER → 2022-12-17 14:02 | Outpatient (CLI) | payer MEDICARE, SELFPAY ==
[2022-12-17 15:05] LABS: Basophils # 0.1 K/mm3 (0-0.2); Basophils % 0.6 % (0.1-2.0); Eosinophils # 0.2 K/mm3 (0.0-0.4); Eosinophils % 2.9 % (0.1-12.0); Hematocrit 36.7 % (37.0-47.0); Hemoglobin 11.7 g/dL (12.2-16.2); Lymphocytes # 3.3 K/mm3 (0.7-4.5); Lymphocytes % 40.3 % (10-50); Mean Corpuscular HGB Conc 31.9 g/dL (31.8-35.4); Mean Corpuscular Hemoglobin 28.5 pg (27.0-31.2); Mean Corpuscular Volume 89.1 fl (81-99); Mean Platelet Volume 7.1 fl (7.4-10.4); Monocytes # 0.5 K/mm3 (0.1-1.0); Neutrophils # 4.1 K/mm3 (1.8-7.8); Neutrophils % 50.2 % (37.0-80.0); Platelet Count 258 K/mm3 (142-424); Red Blood Count 4.12 M/mm3 (4.20-5.40); Red Cell Distribution Width 16.3 % (11.5-17.5); White Blood Count 8.1 K/mm3 (4.8-10.8)
[2022-12-17 15:34] LABS: Alanine Aminotransferase 36 U/L (12-78); Albumin Level 4.1 g/dl (3.5-5.0); Albumin/Globulin Ratio 1.4 (1.1-1.8); Alkaline Phosphatase 72 U/L (38-126); Anion Gap 16.2 mEq/L (5-15); Aspartate Amino Transferase 40 U/L (14-36); Bilirubin,Total 0.3 mg/dl (0.2-1.3); Blood Urea Nitrogen 21 mg/dl (7-17); Calcium 9.3 mg/dl (8.4-10.2); Carbon Dioxide 28 mmol/L (22.0-30.0); Chloride 94 mmol/L (98-107); Estimated Glomerular Filt Rate 70 ml/min (>60); GFR (African American) 85 ML/MIN (>60); Glucose 170 mg/dl (74-100); Potassium 4.2 mmoL/L (3.5-5.1); Sodium 134 mmol/L (136-145); Total Protein,Serum 7.1 g/dl (6.3-8.2)
== END ==
PROVIDERS: Obstetrics & Gynecology Gynecologic Oncology; PCP Family Medicine; Visit Provider Nurse Practitioner Pediatrics
DX: C54.1 Malignant neoplasm of endometrium (principal)
CPT/HCPCS: 36415; 80053; 85025

== ENCOUNTER → 2022-12-24 15:43 | Outpatient (CLI) | payer MEDICARE, SELFPAY ==
[2022-12-24 16:17] LABS: Basophils # 0.1 K/mm3 (0-0.2); Basophils % 0.7 % (0.1-2.0); Eosinophils # 0.3 K/mm3 (0.0-0.4); Eosinophils % 3.6 % (0.1-12.0); Hematocrit 37.4 % (37.0-47.0); Hemoglobin 12.3 g/dL (12.2-16.2); Lymphocytes # 3.2 K/mm3 (0.7-4.5); Lymphocytes % 38.8 % (10-50); Mean Corpuscular Hemoglobin 29.1 pg (27.0-31.2); Mean Corpuscular Volume 88.2 fl (81-99); Mean Platelet Volume 7.7 fl (7.4-10.4); Monocytes # 0.5 K/mm3 (0.1-1.0); Monocytes % 6.2 % (1.7-9.3); Neutrophils # 4.2 K/mm3 (1.8-7.8); Neutrophils % 50.7 % (37.0-80.0); Platelet Count 288 K/mm3 (142-424); Red Blood Count 4.24 M/mm3 (4.20-5.40); White Blood Count 8.3 K/mm3 (4.8-10.8)
[2022-12-24 16:42] LABS: Chloride 96 mmol/L (98-107); Potassium 3.6 mmoL/L (3.5-5.1); Sodium 135 mmol/L (136-145)
[2022-12-24 16:45] LABS: Alanine Aminotransferase 40 U/L (12-78); Albumin Level 3.9 g/dl (3.5-5.0); Albumin/Globulin Ratio 1.3 (1.1-1.8); Alkaline Phosphatase 89 U/L (38-126); Anion Gap 20.6 mEq/L (5-15); Aspartate Amino Transferase 44 U/L (14-36); Bilirubin,Total 0.3 mg/dl (0.2-1.3); Blood Urea Nitrogen 15 mg/dl (7-17); Calcium 8.9 mg/dl (8.4-10.2); Carbon Dioxide 22 mmol/L (22.0-30.0); Estimated Glomerular Filt Rate 61 ml/min (>60); GFR (African American) 74 ML/MIN (>60); Globulin 2.9 g/dL (1.3-3.2); Glucose 219 mg/dl (74-100); Total Protein,Serum 6.8 g/dl (6.3-8.2)
== END ==
PROVIDERS: PCP Family Medicine; Visit Provider Obstetrics & Gynecology Gynecologic Oncology
DX: C54.1 Malignant neoplasm of endometrium (principal)
CPT/HCPCS: 36415; 80053; 85025

== ENCOUNTER → 2022-12-31 16:12 | Outpatient (CLI) | payer MEDICARE, SELFPAY ==
[2022-12-31 17:55] LABS: Basophils % 0.5 % (0.1-2.0); Eosinophils # 0.2 K/mm3 (0.0-0.4); Eosinophils % 2.5 % (0.1-12.0); Hematocrit 38.3 % (37.0-47.0); Hemoglobin 12.5 g/dL (12.2-16.2); Lymphocytes # 3.1 K/mm3 (0.7-4.5); Lymphocytes % 36.1 % (10-50); Mean Corpuscular HGB Conc 32.6 g/dL (31.8-35.4); Mean Corpuscular Hemoglobin 29.1 pg (27.0-31.2); Mean Corpuscular Volume 89.1 fl (81-99); Mean Platelet Volume 7.6 fl (7.4-10.4); Monocytes # 0.5 K/mm3 (0.1-1.0); Monocytes % 5.7 % (1.7-9.3); Neutrophils # 4.8 K/mm3 (1.8-7.8); Neutrophils % 55.3 % (37.0-80.0); Platelet Count 363 K/mm3 (142-424); Red Blood Count 4.29 M/mm3 (4.20-5.40); Red Cell Distribution Width 15.9 % (11.5-17.5); White Blood Count 8.7 K/mm3 (4.8-10.8)
[2022-12-31 19:22] LABS: Alanine Aminotransferase 36 U/L (12-78); Albumin Level 4.1 g/dl (3.5-5.0); Albumin/Globulin Ratio 1.4 (1.1-1.8); Alkaline Phosphatase 92 U/L (38-126); Anion Gap 19.3 mEq/L (5-15); Aspartate Amino Transferase 41 U/L (14-36); Bilirubin,Total 0.2 mg/dl (0.2-1.3); Blood Urea Nitrogen 18 mg/dl (7-17); Calcium 9.3 mg/dl (8.4-10.2); Carbon Dioxide 27 mmol/L (22.0-30.0); Chloride 95 mmol/L (98-107); Estimated Glomerular Filt Rate 61 ml/min (>60); GFR (African American) 74 ML/MIN (>60); Glucose 119 mg/dl (74-100); Potassium 4.3 mmoL/L (3.5-5.1); Sodium 137 mmol/L (136-145); Total Protein,Serum 7.1 g/dl (6.3-8.2)
== END ==
PROVIDERS: PCP Family Medicine; Visit Provider Obstetrics & Gynecology Gynecologic Oncology
DX: C54.1 Malignant neoplasm of endometrium (principal)
CPT/HCPCS: 36415; 80053; 85025

== ENCOUNTER → 2023-01-07 15:12 | Outpatient (CLI) | payer MEDICARE, SELFPAY ==
[2023-01-07 15:34] LABS: Basophils # 0.1 K/mm3 (0-0.2); Basophils % 0.8 % (0.1-2.0); Eosinophils # 0.3 K/mm3 (0.0-0.4); Eosinophils % 3.4 % (0.1-12.0); Hemoglobin 12.8 g/dL (12.2-16.2); Lymphocytes % 35.8 % (10-50); Mean Corpuscular HGB Conc 32.1 g/dL (31.8-35.4); Mean Corpuscular Hemoglobin 28.5 pg (27.0-31.2); Mean Corpuscular Volume 88.9 fl (81-99); Mean Platelet Volume 7.3 fl (7.4-10.4); Monocytes # 0.6 K/mm3 (0.1-1.0); Monocytes % 6.6 % (1.7-9.3); Neutrophils # 4.5 K/mm3 (1.8-7.8); Neutrophils % 53.4 % (37.0-80.0); Platelet Count 335 K/mm3 (142-424); White Blood Count 8.4 K/mm3 (4.8-10.8)
[2023-01-07 15:52] LABS: Chloride 97 mmol/L (98-107)
[2023-01-07 15:53] LABS: Potassium 4.2 mmoL/L (3.5-5.1); Sodium 136 mmol/L (136-145)
[2023-01-07 15:55] LABS: Alanine Aminotransferase 33 U/L (12-78); Aspartate Amino Transferase 38 U/L (14-36); Blood Urea Nitrogen 21 mg/dl (7-17); Estimated Glomerular Filt Rate 70 ml/min (>60); GFR (African American) 85 ML/MIN (>60)
[2023-01-07 15:56] LABS: Albumin Level 4.2 g/dl (3.5-5.0); Albumin/Globulin Ratio 1.3 (1.1-1.8); Alkaline Phosphatase 77 U/L (38-126); Anion Gap 15.2 mEq/L (5-15); Bilirubin,Total 0.4 mg/dl (0.2-1.3); Calcium 9.6 mg/dl (8.4-10.2); Carbon Dioxide 28 mmol/L (22.0-30.0); Globulin 3.2 g/dL (1.3-3.2); Glucose 143 mg/dl (74-100); Total Protein,Serum 7.4 g/dl (6.3-8.2)
== END ==
PROVIDERS: PCP Family Medicine; Visit Provider Obstetrics & Gynecology Gynecologic Oncology
DX: C54.1 Malignant neoplasm of endometrium (principal)
CPT/HCPCS: 36415; 80053; 85025

== ENCOUNTER → 2023-01-16 10:53 | Outpatient (CLI) | payer MEDICARE, SELFPAY ==
[2023-01-16 11:18] LABS: Basophils # 0.1 K/mm3 (0-0.2); Basophils % 0.6 % (0.1-2.0); Eosinophils # 0.3 K/mm3 (0.0-0.4); Eosinophils % 4.3 % (0.1-12.0); Hematocrit 39.4 % (37.0-47.0); Hemoglobin 12.6 g/dL (12.2-16.2); Lymphocytes # 2.9 K/mm3 (0.7-4.5); Lymphocytes % 36.8 % (10-50); Mean Corpuscular Hemoglobin 28.4 pg (27.0-31.2); Mean Corpuscular Volume 88.6 fl (81-99); Mean Platelet Volume 7.1 fl (7.4-10.4); Monocytes # 0.5 K/mm3 (0.1-1.0); Monocytes % 6.7 % (1.7-9.3); Neutrophils % 51.7 % (37.0-80.0); Platelet Count 337 K/mm3 (142-424); Red Blood Count 4.45 M/mm3 (4.20-5.40); Red Cell Distribution Width 16.2 % (11.5-17.5); White Blood Count 7.8 K/mm3 (4.8-10.8)
[2023-01-16 12:01] LABS: Alanine Aminotransferase 45 U/L (12-78); Anion Gap 13.2 mEq/L (5-15); Aspartate Amino Transferase 62 U/L (14-36); Bilirubin,Total 0.4 mg/dl (0.2-1.3); Blood Urea Nitrogen 19 mg/dl (7-17); Calcium 9.3 mg/dl (8.4-10.2); Carbon Dioxide 28 mmol/L (22.0-30.0); Chloride 99 mmol/L (98-107); Estimated Glomerular Filt Rate 70 ml/min (>60); GFR (African American) 85 ML/MIN (>60); Glucose 175 mg/dl (74-100); Potassium 4.2 mmoL/L (3.5-5.1); Sodium 136 mmol/L (136-145)
[2023-01-16 12:02] LABS: Albumin Level 4.3 g/dl (3.5-5.0); Albumin/Globulin Ratio 1.4 (1.1-1.8); Alkaline Phosphatase 73 U/L (38-126); Globulin 3.1 g/dL (1.3-3.2); Total Protein,Serum 7.4 g/dl (6.3-8.2)
== END ==
PROVIDERS: Obstetrics & Gynecology Gynecologic Oncology; PCP Family Medicine; Visit Provider Nurse Practitioner Pediatrics
DX: C54.1 Malignant neoplasm of endometrium (principal)
CPT/HCPCS: 36415; 80053; 85025

== ENCOUNTER → 2023-01-29 12:03 | Outpatient (CLI) | payer MEDICARE, SELFPAY ==
[2023-01-29 12:24] LABS: Basophils % 0.5 % (0.1-2.0); Eosinophils # 0.3 K/mm3 (0.0-0.4); Hematocrit 39.8 % (37.0-47.0); Hemoglobin 12.6 g/dL (12.2-16.2); Lymphocytes % 37.6 % (10-50); Mean Corpuscular HGB Conc 31.7 g/dL (31.8-35.4); Mean Corpuscular Hemoglobin 28.3 pg (27.0-31.2); Mean Platelet Volume 7.2 fl (7.4-10.4); Monocytes # 0.5 K/mm3 (0.1-1.0); Monocytes % 6.2 % (1.7-9.3); Neutrophils # 4.2 K/mm3 (1.8-7.8); Neutrophils % 51.7 % (37.0-80.0); Platelet Count 327 K/mm3 (142-424); Red Blood Count 4.47 M/mm3 (4.20-5.40); White Blood Count 8.1 K/mm3 (4.8-10.8)
[2023-01-29 13:37] LABS: Alanine Aminotransferase 41 U/L (12-78); Albumin Level 4.3 g/dl (3.5-5.0); Albumin/Globulin Ratio 1.4 (1.1-1.8); Alkaline Phosphatase 101 U/L (38-126); Anion Gap 15.5 mEq/L (5-15); Aspartate Amino Transferase 44 U/L (14-36); Bilirubin,Total 0.2 mg/dl (0.2-1.3); Blood Urea Nitrogen 18 mg/dl (7-17); Calcium 9.7 mg/dl (8.4-10.2); Carbon Dioxide 27 mmol/L (22.0-30.0); Chloride 98 mmol/L (98-107); Estimated Glomerular Filt Rate 70 ml/min (>60); GFR (African American) 85 ML/MIN (>60); Glucose 219 mg/dl (74-100); Potassium 4.5 mmoL/L (3.5-5.1); Sodium 136 mmol/L (136-145); Total Protein,Serum 7.3 g/dl (6.3-8.2)
== END ==
PROVIDERS: PCP Family Medicine; Visit Provider Obstetrics & Gynecology Gynecologic Oncology
DX: C54.1 Malignant neoplasm of endometrium (principal)
CPT/HCPCS: 36415; 80053; 85025

== ENCOUNTER → 2023-02-05 11:14 | Outpatient (CLI) | payer MEDICARE, SELFPAY ==
[2023-02-05 11:42] LABS: Basophils # 0.1 K/mm3 (0-0.2); Basophils % 0.9 % (0.1-2.0); Eosinophils # 0.3 K/mm3 (0.0-0.4); Eosinophils % 3.3 % (0.1-12.0); Hematocrit 40.1 % (37.0-47.0); Hemoglobin 12.6 g/dL (12.2-16.2); Lymphocytes # 2.4 K/mm3 (0.7-4.5); Mean Corpuscular HGB Conc 31.5 g/dL (31.8-35.4); Mean Corpuscular Hemoglobin 27.9 pg (27.0-31.2); Mean Corpuscular Volume 88.6 fl (81-99); Mean Platelet Volume 7.1 fl (7.4-10.4); Monocytes # 0.6 K/mm3 (0.1-1.0); Monocytes % 7.7 % (1.7-9.3); Neutrophils # 4.5 K/mm3 (1.8-7.8); Platelet Count 365 K/mm3 (142-424); Red Blood Count 4.53 M/mm3 (4.20-5.40); Red Cell Distribution Width 16.1 % (11.5-17.5); White Blood Count 7.9 K/mm3 (4.8-10.8)
[2023-02-05 13:03] LABS: Alanine Aminotransferase 40 U/L (12-78); Albumin Level 4.3 g/dl (3.5-5.0); Albumin/Globulin Ratio 1.4 (1.1-1.8); Alkaline Phosphatase 105 U/L (38-126); Anion Gap 17.2 mEq/L (5-15); Aspartate Amino Transferase 46 U/L (14-36); Bilirubin,Total 0.3 mg/dl (0.2-1.3); Blood Urea Nitrogen 20 mg/dl (7-17); Calcium 9.4 mg/dl (8.4-10.2); Carbon Dioxide 26 mmol/L (22.0-30.0); Chloride 98 mmol/L (98-107); Estimated Glomerular Filt Rate 61 ml/min (>60); GFR (African American) 74 ML/MIN (>60); Globulin 3.1 g/dL (1.3-3.2); Glucose 228 mg/dl (74-100); Potassium 4.2 mmoL/L (3.5-5.1); Sodium 137 mmol/L (136-145); Total Protein,Serum 7.4 g/dl (6.3-8.2)
== END ==
PROVIDERS: PCP Family Medicine; Visit Provider Obstetrics & Gynecology Gynecologic Oncology
DX: C54.1 Malignant neoplasm of endometrium (principal)
CPT/HCPCS: 36415; 80053; 85025

== ENCOUNTER → 2023-02-14 11:16 | Outpatient (CLI) | payer MEDICARE, SELFPAY ==
[2023-02-14 11:42] LABS: Basophils # 0.1 K/mm3 (0-0.2); Eosinophils # 0.3 K/mm3 (0.0-0.4); Eosinophils % 3.8 % (0.1-12.0); Hematocrit 38.9 % (37.0-47.0); Hemoglobin 12.5 g/dL (12.2-16.2); Lymphocytes # 2.7 K/mm3 (0.7-4.5); Lymphocytes % 37.5 % (10-50); Mean Corpuscular HGB Conc 32.2 g/dL (31.8-35.4); Mean Corpuscular Hemoglobin 28.1 pg (27.0-31.2); Mean Corpuscular Volume 87.4 fl (81-99); Mean Platelet Volume 7.8 fl (7.4-10.4); Monocytes # 0.5 K/mm3 (0.1-1.0); Neutrophils # 3.6 K/mm3 (1.8-7.8); Neutrophils % 50.6 % (37.0-80.0); Platelet Count 324 K/mm3 (142-424); Red Blood Count 4.45 M/mm3 (4.20-5.40); Red Cell Distribution Width 16.3 % (11.5-17.5); White Blood Count 7.1 K/mm3 (4.8-10.8)
[2023-02-14 11:43] LABS: Chloride 96 mmol/L (98-107); Potassium 4.1 mmoL/L (3.5-5.1); Sodium 135 mmol/L (136-145)
[2023-02-14 11:45] LABS: Blood Urea Nitrogen 20 mg/dl (7-17); Estimated Glomerular Filt Rate 82 ml/min (>60); GFR (African American) 99 ML/MIN (>60)
[2023-02-14 11:46] LABS: Alanine Aminotransferase 44 U/L (12-78); Albumin/Globulin Ratio 1.2 (1.1-1.8); Alkaline Phosphatase 147 U/L (38-126); Anion Gap 18.1 mEq/L (5-15); Aspartate Amino Transferase 49 U/L (14-36); Bilirubin,Total 0.4 mg/dl (0.2-1.3); Calcium 9.4 mg/dl (8.4-10.2); Carbon Dioxide 25 mmol/L (22.0-30.0); Globulin 3.4 g/dL (1.3-3.2); Glucose 266 mg/dl (74-100); Total Protein,Serum 7.4 g/dl (6.3-8.2)
== END ==
PROVIDERS: PCP Family Medicine; Visit Provider Obstetrics & Gynecology Gynecologic Oncology
DX: C54.1 Malignant neoplasm of endometrium (principal)
CPT/HCPCS: 36415; 80053; 85025

== ENCOUNTER → 2023-02-21 12:25 | Outpatient (CLI) | payer MEDICARE, SELFPAY ==
[2023-02-21 12:53] LABS: Basophils # 0.1 K/mm3 (0-0.2); Basophils % 0.7 % (0.1-2.0); Eosinophils # 0.2 K/mm3 (0.0-0.4); Eosinophils % 2.9 % (0.1-12.0); Hematocrit 41.7 % (37.0-47.0); Hemoglobin 13.6 g/dL (12.2-16.2); Lymphocytes % 37.2 % (10-50); Mean Corpuscular HGB Conc 32.5 g/dL (31.8-35.4); Mean Corpuscular Hemoglobin 28.6 pg (27.0-31.2); Mean Platelet Volume 7.7 fl (7.4-10.4); Monocytes # 0.6 K/mm3 (0.1-1.0); Neutrophils # 4.2 K/mm3 (1.8-7.8); Neutrophils % 52.2 % (37.0-80.0); Platelet Count 341 K/mm3 (142-424); Red Blood Count 4.73 M/mm3 (4.20-5.40); Red Cell Distribution Width 16.4 % (11.5-17.5)
[2023-02-21 13:09] LABS: Alanine Aminotransferase 40 U/L (12-78); Albumin Level 4.3 g/dl (3.5-5.0); Albumin/Globulin Ratio 1.2 (1.1-1.8); Alkaline Phosphatase 109 U/L (38-126); Aspartate Amino Transferase 45 U/L (14-36); Bilirubin,Total 0.4 mg/dl (0.2-1.3); Blood Urea Nitrogen 23 mg/dl (7-17); Calcium 9.4 mg/dl (8.4-10.2); Carbon Dioxide 28 mmol/L (22.0-30.0); Chloride 97 mmol/L (98-107); Estimated Glomerular Filt Rate 54 ml/min (>60); GFR (African American) 65 ML/MIN (>60); Globulin 3.5 g/dL (1.3-3.2); Glucose 239 mg/dl (74-100); Sodium 138 mmol/L (136-145); Total Protein,Serum 7.8 g/dl (6.3-8.2)
== END ==
PROVIDERS: PCP Family Medicine; Visit Provider Obstetrics & Gynecology Gynecologic Oncology
DX: C54.1 Malignant neoplasm of endometrium (principal)
CPT/HCPCS: 36415; 80053; 85025

== ENCOUNTER → 2023-03-01 13:04 | Outpatient (CLI) | payer MEDICARE, SELFPAY ==
[2023-03-01 13:18] LABS: Basophils % 0.5 % (0.1-2.0); Eosinophils # 0.3 K/mm3 (0.0-0.4); Eosinophils % 4.1 % (0.1-12.0); Hematocrit 40.3 % (37.0-47.0); Lymphocytes # 2.2 K/mm3 (0.7-4.5); Lymphocytes % 28.4 % (10-50); Mean Corpuscular HGB Conc 32.3 g/dL (31.8-35.4); Mean Corpuscular Hemoglobin 28.2 pg (27.0-31.2); Mean Corpuscular Volume 87.4 fl (81-99); Mean Platelet Volume 7.7 fl (7.4-10.4); Monocytes # 0.5 K/mm3 (0.1-1.0); Monocytes % 6.1 % (1.7-9.3); Neutrophils # 4.8 K/mm3 (1.8-7.8); Platelet Count 338 K/mm3 (142-424); Red Blood Count 4.61 M/mm3 (4.20-5.40); Red Cell Distribution Width 16.8 % (11.5-17.5); White Blood Count 7.8 K/mm3 (4.8-10.8)
[2023-03-01 14:54] LABS: Alanine Aminotransferase 38 U/L (12-78); Albumin Level 4.3 g/dl (3.5-5.0); Albumin/Globulin Ratio 1.4 (1.1-1.8); Alkaline Phosphatase 93 U/L (38-126); Anion Gap 20.4 mEq/L (5-15); Aspartate Amino Transferase 39 U/L (14-36); Bilirubin,Total 0.4 mg/dl (0.2-1.3); Blood Urea Nitrogen 20 mg/dl (7-17); Calcium 9.1 mg/dl (8.4-10.2); Carbon Dioxide 24 mmol/L (22.0-30.0); Chloride 95 mmol/L (98-107); Estimated Glomerular Filt Rate 82 ml/min (>60); GFR (African American) 99 ML/MIN (>60); Globulin 3.1 g/dL (1.3-3.2); Glucose 231 mg/dl (74-100); Potassium 4.4 mmoL/L (3.5-5.1); Sodium 135 mmol/L (136-145); Total Protein,Serum 7.4 g/dl (6.3-8.2)
== END ==
PROVIDERS: PCP Family Medicine; Visit Provider Obstetrics & Gynecology Gynecologic Oncology
DX: C54.1 Malignant neoplasm of endometrium (principal)
CPT/HCPCS: 36415; 80053; 85025

== ENCOUNTER → 2023-03-12 14:30 | Outpatient (CLI) | payer MEDICARE, SELFPAY ==
[2023-03-12 15:32] LABS: Chloride 98 mmol/L (98-107); Sodium 138 mmol/L (136-145)
[2023-03-12 15:33] LABS: Potassium 4.3 mmoL/L (3.5-5.1)
[2023-03-12 15:35] LABS: Alanine Aminotransferase 35 U/L (12-78); Albumin Level 4.1 g/dl (3.5-5.0); Albumin/Globulin Ratio 1.4 (1.1-1.8); Alkaline Phosphatase 80 U/L (38-126); Anion Gap 17.3 mEq/L (5-15); Aspartate Amino Transferase 39 U/L (14-36); Bilirubin,Total 0.5 mg/dl (0.2-1.3); Blood Urea Nitrogen 23 mg/dl (7-17); Carbon Dioxide 27 mmol/L (22.0-30.0); Estimated Glomerular Filt Rate 54 ml/min (>60); GFR (African American) 65 ML/MIN (>60); Glucose 200 mg/dl (74-100); Total Protein,Serum 7.1 g/dl (6.3-8.2)
[2023-03-12 15:41] LABS: Basophils % 0.3 % (0.1-2.0); Eosinophils # 0.2 K/mm3 (0.0-0.4); Eosinophils % 3.1 % (0.1-12.0); Hematocrit 39.8 % (37.0-47.0); Hemoglobin 13.1 g/dL (12.2-16.2); Lymphocytes % 29.6 % (10-50); Mean Corpuscular Hemoglobin 29.2 pg (27.0-31.2); Mean Corpuscular Volume 88.5 fl (81-99); Mean Platelet Volume 7.5 fl (7.4-10.4); Monocytes # 0.4 K/mm3 (0.1-1.0); Monocytes % 6.6 % (1.7-9.3); Neutrophils # 4.1 K/mm3 (1.8-7.8); Neutrophils % 60.4 % (37.0-80.0); Platelet Count 330 K/mm3 (142-424); Red Cell Distribution Width 17.1 % (11.5-17.5); White Blood Count 6.8 K/mm3 (4.8-10.8)
== END ==
PROVIDERS: PCP Family Medicine; Visit Provider Obstetrics & Gynecology Gynecologic Oncology
DX: C54.1 Malignant neoplasm of endometrium (principal)
CPT/HCPCS: 36415; 80053; 85025

== ENCOUNTER → 2023-03-21 12:06 | Outpatient (CLI) | payer MEDICARE, SELFPAY ==
[2023-03-21 12:47] LABS: Basophils % 0.7 % (0.1-2.0); Eosinophils # 0.2 K/mm3 (0.0-0.4); Eosinophils % 3.2 % (0.1-12.0); Hematocrit 40.8 % (37.0-47.0); Hemoglobin 12.9 g/dL (12.2-16.2); Lymphocytes # 1.1 K/mm3 (0.7-4.5); Lymphocytes % 22.3 % (10-50); Mean Corpuscular HGB Conc 31.5 g/dL (31.8-35.4); Mean Corpuscular Volume 88.8 fl (81-99); Mean Platelet Volume 7.3 fl (7.4-10.4); Monocytes # 0.3 K/mm3 (0.1-1.0); Monocytes % 6.8 % (1.7-9.3); Neutrophils # 3.2 K/mm3 (1.8-7.8); Neutrophils % 66.9 % (37.0-80.0); Platelet Count 289 K/mm3 (142-424); Red Blood Count 4.59 M/mm3 (4.20-5.40); Red Cell Distribution Width 17.6 % (11.5-17.5); White Blood Count 4.8 K/mm3 (4.8-10.8)
[2023-03-21 13:43] LABS: Alanine Aminotransferase 31 U/L (12-78); Albumin Level 4.1 g/dl (3.5-5.0); Albumin/Globulin Ratio 1.3 (1.1-1.8); Alkaline Phosphatase 98 U/L (38-126); Anion Gap 19.1 mEq/L (5-15); Aspartate Amino Transferase 31 U/L (14-36); Bilirubin,Total 0.3 mg/dl (0.2-1.3); Blood Urea Nitrogen 21 mg/dl (7-17); Calcium 9.6 mg/dl (8.4-10.2); Carbon Dioxide 24 mmol/L (22.0-30.0); Chloride 97 mmol/L (98-107); Estimated Glomerular Filt Rate 54 ml/min (>60); GFR (African American) 65 ML/MIN (>60); Globulin 3.1 g/dL (1.3-3.2); Glucose 262 mg/dl (74-100); Potassium 4.1 mmoL/L (3.5-5.1); Sodium 136 mmol/L (136-145); Total Protein,Serum 7.2 g/dl (6.3-8.2)
== END ==
PROVIDERS: PCP Family Medicine; Visit Provider Obstetrics & Gynecology Gynecologic Oncology
DX: C54.1 Malignant neoplasm of endometrium (principal)
CPT/HCPCS: 36415; 80053; 85025

== ENCOUNTER → 2023-04-04 14:07 | Outpatient (CLI) | payer MEDICARE, SELFPAY ==
[2023-04-04 14:49] LABS: Basophils % 0.3 % (0.1-2.0); Eosinophils # 0.2 K/mm3 (0.0-0.4); Eosinophils % 3.7 % (0.1-12.0); Hematocrit 38.1 % (37.0-47.0); Lymphocytes # 0.6 K/mm3 (0.7-4.5); Lymphocytes % 13.6 % (10-50); Mean Corpuscular HGB Conc 31.5 g/dL (31.8-35.4); Mean Corpuscular Hemoglobin 28.7 pg (27.0-31.2); Mean Corpuscular Volume 91.1 fl (81-99); Mean Platelet Volume 7.4 fl (7.4-10.4); Monocytes # 0.4 K/mm3 (0.1-1.0); Monocytes % 8.4 % (1.7-9.3); Neutrophils # 3.3 K/mm3 (1.8-7.8); Platelet Count 246 K/mm3 (142-424); Red Blood Count 4.18 M/mm3 (4.20-5.40); Red Cell Distribution Width 18.7 % (11.5-17.5); White Blood Count 4.4 K/mm3 (4.8-10.8)
[2023-04-04 15:44] LABS: Alanine Aminotransferase 32 U/L (12-78); Albumin Level 3.9 g/dl (3.5-5.0); Albumin/Globulin Ratio 1.3 (1.1-1.8); Alkaline Phosphatase 108 U/L (38-126); Anion Gap 13.9 mEq/L (5-15); Aspartate Amino Transferase 35 U/L (14-36); Bilirubin,Total 0.3 mg/dl (0.2-1.3); Blood Urea Nitrogen 20 mg/dl (7-17); Calcium 8.9 mg/dl (8.4-10.2); Carbon Dioxide 32 mmol/L (22.0-30.0); Chloride 92 mmol/L (98-107); Estimated Glomerular Filt Rate 70 ml/min (>60); GFR (African American) 85 ML/MIN (>60); Globulin 2.9 g/dL (1.3-3.2); Glucose 311 mg/dl (74-100); Potassium 3.9 mmoL/L (3.5-5.1); Sodium 134 mmol/L (136-145); Total Protein,Serum 6.8 g/dl (6.3-8.2)
== END ==
PROVIDERS: PCP Family Medicine; Visit Provider Obstetrics & Gynecology Gynecologic Oncology
DX: C54.1 Malignant neoplasm of endometrium (principal)
CPT/HCPCS: 36415; 80053; 85025

== ENCOUNTER → 2023-04-23 13:41 | Outpatient (CLI) | payer MEDICARE, SELFPAY ==
[2023-04-23 14:21] LABS: Basophils % 0.4 % (0.1-2.0); Eosinophils # 0.1 K/mm3 (0.0-0.4); Hematocrit 37.6 % (37.0-47.0); Hemoglobin 12.8 g/dL (12.2-16.2); Lymphocytes # 0.5 K/mm3 (0.7-4.5); Lymphocytes % 9.9 % (10-50); Mean Corpuscular Hemoglobin 31.4 pg (27.0-31.2); Mean Corpuscular Volume 92.6 fl (81-99); Mean Platelet Volume 7.7 fl (7.4-10.4); Monocytes # 0.5 K/mm3 (0.1-1.0); Monocytes % 10.4 % (1.7-9.3); Neutrophils # 3.9 K/mm3 (1.8-7.8); Neutrophils % 77.3 % (37.0-80.0); Platelet Count 275 K/mm3 (142-424); Red Blood Count 4.06 M/mm3 (4.20-5.40); Red Cell Distribution Width 19.4 % (11.5-17.5)
[2023-04-25 10:37] LABS: Chloride 96 mmol/L (98-107); Potassium 3.6 mmoL/L (3.5-5.1); Sodium 135 mmol/L (136-145)
[2023-04-25 10:39] LABS: Alanine Aminotransferase 59 U/L (12-78); Aspartate Amino Transferase 58 U/L (14-36); Blood Urea Nitrogen 17 mg/dl (7-17); Estimated Glomerular Filt Rate 70 ml/min (>60); GFR (African American) 85 ML/MIN (>60)
[2023-04-25 10:40] LABS: Albumin Level 4.4 g/dl (3.5-5.0); Albumin/Globulin Ratio 1.6 (1.1-1.8); Alkaline Phosphatase 84 U/L (38-126); Anion Gap 19.6 mEq/L (5-15); Bilirubin,Total 0.4 mg/dl (0.2-1.3); Calcium 9.4 mg/dl (8.4-10.2); Carbon Dioxide 23 mmol/L (22.0-30.0); Globulin 2.8 g/dL (1.3-3.2); Glucose 271 mg/dl (74-100); Total Protein,Serum 7.2 g/dl (6.3-8.2)
== END ==
PROVIDERS: Obstetrics & Gynecology Gynecologic Oncology; PCP Family Medicine; Visit Provider Family Medicine
DX: C54.1 Malignant neoplasm of endometrium (principal)
CPT/HCPCS: 36415; 80053; 85025

== ENCOUNTER → 2023-05-01 11:03 | Outpatient (CLI) | payer MEDICARE, SELFPAY ==
[2023-05-01 11:26] LABS: Basophils % 0.7 % (0.1-2.0); Eosinophils # 0.1 K/mm3 (0.0-0.4); Eosinophils % 3.8 % (0.1-12.0); Hemoglobin 11.8 g/dL (12.2-16.2); Lymphocytes # 0.4 K/mm3 (0.7-4.5); Lymphocytes % 12.7 % (10-50); Mean Corpuscular HGB Conc 34.7 g/dL (31.8-35.4); Mean Corpuscular Hemoglobin 32.2 pg (27.0-31.2); Mean Corpuscular Volume 92.8 fl (81-99); Mean Platelet Volume 7.7 fl (7.4-10.4); Monocytes # 0.4 K/mm3 (0.1-1.0); Monocytes % 11.1 % (1.7-9.3); Neutrophils # 2.4 K/mm3 (1.8-7.8); Neutrophils % 71.7 % (37.0-80.0); Platelet Count 234 K/mm3 (142-424); Red Blood Count 3.66 M/mm3 (4.20-5.40); Red Cell Distribution Width 19.7 % (11.5-17.5); White Blood Count 3.4 K/mm3 (4.8-10.8)
[2023-05-01 11:36] LABS: Chloride 94 mmol/L (98-107); Potassium 3.9 mmoL/L (3.5-5.1); Sodium 134 mmol/L (136-145)
[2023-05-01 11:39] LABS: Alanine Aminotransferase 45 U/L (12-78); Albumin Level 4.2 g/dl (3.5-5.0); Albumin/Globulin Ratio 1.3 (1.1-1.8); Alkaline Phosphatase 85 U/L (38-126); Anion Gap 12.9 mEq/L (5-15); Aspartate Amino Transferase 52 U/L (14-36); Bilirubin,Total 0.4 mg/dl (0.2-1.3); Blood Urea Nitrogen 17 mg/dl (7-17); Calcium 8.8 mg/dl (8.4-10.2); Carbon Dioxide 31 mmol/L (22.0-30.0); Estimated Glomerular Filt Rate 97 ml/min (>60); GFR (African American) 118 ML/MIN (>60); Globulin 3.2 g/dL (1.3-3.2); Glucose 238 mg/dl (74-100); Total Protein,Serum 7.4 g/dl (6.3-8.2)
[2023-05-01 12:16] LABS: Hemoglobin A1C 8.5 % (4.0-6.0)
[2023-05-01 12:36] LABS: 25-OH Vitamin D, Total 57.9 ng/mL (30-100)
== END ==
PROVIDERS: PCP Family Medicine; Visit Provider Obstetrics & Gynecology Gynecologic Oncology
DX: C54.1 Malignant neoplasm of endometrium (principal); E11.9 Type 2 diabetes mellitus without complications; Z79.84 Long term (current) use of oral hypoglycemic drugs; E55.9 Vitamin D deficiency, unspecified
CPT/HCPCS: 36415; 80053; 82306; 83036; 83735; 85025

== ENCOUNTER → 2023-05-07 11:27 | Outpatient (CLI) | payer MEDICARE, SELFPAY ==
[2023-05-07 12:28] LABS: Basophils % 0.5 % (0.1-2.0); Eosinophils # 0.1 K/mm3 (0.0-0.4); Eosinophils % 3.1 % (0.1-12.0); Hematocrit 34.6 % (37.0-47.0); Lymphocytes # 0.8 K/mm3 (0.7-4.5); Lymphocytes % 18.1 % (10-50); Mean Corpuscular HGB Conc 34.6 g/dL (31.8-35.4); Mean Corpuscular Hemoglobin 32.1 pg (27.0-31.2); Mean Corpuscular Volume 92.8 fl (81-99); Mean Platelet Volume 8.1 fl (7.4-10.4); Monocytes # 0.4 K/mm3 (0.1-1.0); Monocytes % 9.3 % (1.7-9.3); Platelet Count 277 K/mm3 (142-424); Red Blood Count 3.72 M/mm3 (4.20-5.40); Red Cell Distribution Width 19.2 % (11.5-17.5); White Blood Count 4.3 K/mm3 (4.8-10.8)
[2023-05-07 12:44] LABS: Chloride 93 mmol/L (98-107); Potassium 3.5 mmoL/L (3.5-5.1); Sodium 134 mmol/L (136-145)
[2023-05-07 12:47] LABS: Alanine Aminotransferase 59 U/L (12-78); Albumin Level 4.3 g/dl (3.5-5.0); Albumin/Globulin Ratio 1.5 (1.1-1.8); Alkaline Phosphatase 62 U/L (38-126); Anion Gap 20.5 mEq/L (5-15); Aspartate Amino Transferase 71 U/L (14-36); Bilirubin,Total 0.5 mg/dl (0.2-1.3); Blood Urea Nitrogen 20 mg/dl (7-17); Calcium 9.1 mg/dl (8.4-10.2); Carbon Dioxide 24 mmol/L (22.0-30.0); Estimated Glomerular Filt Rate 70 ml/min (>60); GFR (African American) 85 ML/MIN (>60); Globulin 2.8 g/dL (1.3-3.2); Glucose 368 mg/dl (74-100); Total Protein,Serum 7.1 g/dl (6.3-8.2)
== END ==
PROVIDERS: PCP Family Medicine; Visit Provider Obstetrics & Gynecology Gynecologic Oncology
DX: C54.1 Malignant neoplasm of endometrium (principal)
CPT/HCPCS: 36415; 80053; 85025

== ENCOUNTER 2023-05-16 10:47 | Outpatient (CLI) | payer MEDICARE, SELFPAY ==
[2023-05-16 11:02] VITALS: BMI 36.9
[2023-05-16 11:18] LABS: Basophils % 0.5 % (0.1-2.0); Eosinophils # 0.2 K/mm3 (0.0-0.4); Eosinophils % 3.5 % (0.1-12.0); Hematocrit 30.5 % (37.0-47.0); Hemoglobin 10.7 g/dL (12.2-16.2); Lymphocytes % 15.9 % (10-50); Mean Corpuscular HGB Conc 35.1 g/dL (31.8-35.4); Mean Corpuscular Hemoglobin 33.4 pg (27.0-31.2); Mean Corpuscular Volume 95.3 fl (81-99); Monocytes # 0.6 K/mm3 (0.1-1.0); Monocytes % 10.3 % (1.7-9.3); Neutrophils # 4.2 K/mm3 (1.8-7.8); Neutrophils % 69.9 % (37.0-80.0); Platelet Count 259 K/mm3 (142-424); Red Cell Distribution Width 18.7 % (11.5-17.5)
[2023-05-16 11:32] VITALS: BP 108/59; PULSE 86; RESP 18; TEMP 36.8; O2SAT 96
[2023-05-16 11:33] LABS: Alanine Aminotransferase 57 U/L (12-78); Albumin Level 3.7 g/dl (3.5-5.0); Albumin/Globulin Ratio 1.1 (1.1-1.8); Alkaline Phosphatase 82 U/L (38-126); Anion Gap 19.2 mEq/L (5-15); Aspartate Amino Transferase 52 U/L (14-36); Bilirubin,Total 0.5 mg/dl (0.2-1.3); Blood Urea Nitrogen 21 mg/dl (7-17); Calcium 9.2 mg/dl (8.4-10.2); Carbon Dioxide 27 mmol/L (22.0-30.0); Chloride 87 mmol/L (98-107); Creatinine Clearance Estimated 85 mL/min (50-200); Estimated Glomerular Filt Rate 82 ml/min (>60); GFR (African American) 99 ML/MIN (>60); Globulin 3.4 g/dL (1.3-3.2); Glucose 321 mg/dl (74-100); Potassium 3.2 mmoL/L (3.5-5.1); Sodium 130 mmol/L (136-145); Total Protein,Serum 7.1 g/dl (6.3-8.2)
[2023-05-16 12:00] VITALS: BP 123/74; PULSE 83
[2023-05-16 12:30] VITALS: BP 112/62; PULSE 81
[2023-05-16 13:00] VITALS: BP 121/71; PULSE 79
[2023-05-16 13:20] VITALS: BP 108/60; PULSE 80
== END 2023-05-16 13:30 | disposition home or self-care (01) ==
PROVIDERS: PCP Family Medicine; Visit Provider Obstetrics & Gynecology Gynecologic Oncology
DX: C54.1 Malignant neoplasm of endometrium (principal); E83.42 Hypomagnesemia
CPT/HCPCS: 80053; 85025; 96365; 96366; J3475

== ENCOUNTER → 2023-05-22 11:37 | Outpatient (CLI) | payer MEDICARE, SELFPAY ==
[2023-05-22 12:11] LABS: Basophils % 0.4 % (0.1-2.0); Eosinophils # 0.4 K/mm3 (0.0-0.4); Eosinophils % 4.4 % (0.1-12.0); Hematocrit 33.5 % (37.0-47.0); Hemoglobin 11.3 g/dL (12.2-16.2); Lymphocytes # 1.6 K/mm3 (0.7-4.5); Lymphocytes % 18.9 % (10-50); Mean Corpuscular HGB Conc 33.7 g/dL (31.8-35.4); Mean Corpuscular Hemoglobin 32.7 pg (27.0-31.2); Mean Platelet Volume 7.9 fl (7.4-10.4); Monocytes # 0.4 K/mm3 (0.1-1.0); Monocytes % 5.2 % (1.7-9.3); Neutrophils # 5.9 K/mm3 (1.8-7.8); Platelet Count 314 K/mm3 (142-424); Red Blood Count 3.45 M/mm3 (4.20-5.40); Red Cell Distribution Width 18.3 % (11.5-17.5); White Blood Count 8.3 K/mm3 (4.8-10.8)
[2023-05-22 13:22] LABS: Chloride 93 mmol/L (98-107); Potassium 4.5 mmoL/L (3.5-5.1); Sodium 132 mmol/L (136-145)
[2023-05-22 13:24] LABS: Alanine Aminotransferase 46 U/L (12-78); Aspartate Amino Transferase 60 U/L (14-36); Blood Urea Nitrogen 20 mg/dl (7-17); Estimated Glomerular Filt Rate 82 ml/min (>60); GFR (African American) 99 ML/MIN (>60)
[2023-05-22 13:25] LABS: Albumin Level 3.7 g/dl (3.5-5.0); Albumin/Globulin Ratio 1.2 (1.1-1.8); Alkaline Phosphatase 123 U/L (38-126); Anion Gap 15.5 mEq/L (5-15); Bilirubin,Total 0.3 mg/dl (0.2-1.3); Calcium 9.2 mg/dl (8.4-10.2); Carbon Dioxide 28 mmol/L (22.0-30.0); Glucose 323 mg/dl (74-100); Total Protein,Serum 6.7 g/dl (6.3-8.2)
== END ==
PROVIDERS: Obstetrics & Gynecology Gynecologic Oncology; PCP Family Medicine; Visit Provider Family Medicine
DX: C54.1 Malignant neoplasm of endometrium (principal)
CPT/HCPCS: 36415; 80053; 85025

== ENCOUNTER → 2023-05-28 13:49 | Outpatient (CLI) | payer MEDICARE, SELFPAY ==
[2023-05-28 14:30] LABS: Basophils % 0.7 % (0.1-2.0); Eosinophils # 0.3 K/mm3 (0.0-0.4); Eosinophils % 5.4 % (0.1-12.0); Hematocrit 33.7 % (37.0-47.0); Hemoglobin 11.2 g/dL (12.2-16.2); Lymphocytes # 1.1 K/mm3 (0.7-4.5); Lymphocytes % 18.8 % (10-50); Mean Corpuscular HGB Conc 33.3 g/dL (31.8-35.4); Mean Corpuscular Hemoglobin 32.5 pg (27.0-31.2); Mean Corpuscular Volume 97.7 fl (81-99); Mean Platelet Volume 8.3 fl (7.4-10.4); Monocytes # 0.4 K/mm3 (0.1-1.0); Monocytes % 6.8 % (1.7-9.3); Neutrophils # 4.1 K/mm3 (1.8-7.8); Neutrophils % 68.3 % (37.0-80.0); Platelet Count 357 K/mm3 (142-424); Red Blood Count 3.45 M/mm3 (4.20-5.40); Red Cell Distribution Width 17.9 % (11.5-17.5); White Blood Count 5.9 K/mm3 (4.8-10.8)
[2023-05-28 14:57] LABS: Chloride 93 mmol/L (98-107)
[2023-05-28 14:58] LABS: Potassium 4.4 mmoL/L (3.5-5.1); Sodium 131 mmol/L (136-145)
[2023-05-28 15:00] LABS: Alanine Aminotransferase 36 U/L (12-78); Aspartate Amino Transferase 50 U/L (14-36); Bilirubin,Total 0.3 mg/dl (0.2-1.3); Blood Urea Nitrogen 23 mg/dl (7-17); Estimated Glomerular Filt Rate 61 ml/min (>60); GFR (African American) 74 ML/MIN (>60)
[2023-05-28 15:01] LABS: Albumin Level 3.8 g/dl (3.5-5.0); Albumin/Globulin Ratio 1.2 (1.1-1.8); Alkaline Phosphatase 152 U/L (38-126); Anion Gap 13.4 mEq/L (5-15); Calcium 8.9 mg/dl (8.4-10.2); Carbon Dioxide 29 mmol/L (22.0-30.0); Globulin 3.1 g/dL (1.3-3.2); Glucose 358 mg/dl (74-100); Total Protein,Serum 6.9 g/dl (6.3-8.2)
== END ==
PROVIDERS: PCP Family Medicine; Visit Provider Obstetrics & Gynecology Gynecologic Oncology
DX: C54.1 Malignant neoplasm of endometrium (principal)
CPT/HCPCS: 36415; 80053; 85025

== ENCOUNTER → 2023-06-04 12:24 | Outpatient (CLI) | payer MEDICARE, SELFPAY ==
[2023-06-04 12:42] LABS: Basophils # 0.1 K/mm3 (0-0.2); Basophils % 0.8 % (0.1-2.0); Eosinophils # 0.6 K/mm3 (0.0-0.4); Eosinophils % 8.3 % (0.1-12.0); Hematocrit 34.7 % (37.0-47.0); Hemoglobin 11.4 g/dL (12.2-16.2); Lymphocytes # 1.5 K/mm3 (0.7-4.5); Lymphocytes % 20.5 % (10-50); Mean Corpuscular Hemoglobin 31.8 pg (27.0-31.2); Mean Corpuscular Volume 96.5 fl (81-99); Mean Platelet Volume 8.3 fl (7.4-10.4); Monocytes # 0.5 K/mm3 (0.1-1.0); Monocytes % 6.8 % (1.7-9.3); Neutrophils # 4.6 K/mm3 (1.8-7.8); Neutrophils % 63.6 % (37.0-80.0); Platelet Count 415 K/mm3 (142-424); Red Blood Count 3.59 M/mm3 (4.20-5.40); Red Cell Distribution Width 17.8 % (11.5-17.5); White Blood Count 7.3 K/mm3 (4.8-10.8)
[2023-06-04 13:04] LABS: Chloride 91 mmol/L (98-107); Potassium 4.2 mmoL/L (3.5-5.1); Sodium 132 mmol/L (136-145)
[2023-06-04 13:07] LABS: Alanine Aminotransferase 43 U/L (12-78); Albumin Level 4.2 g/dl (3.5-5.0); Albumin/Globulin Ratio 1.4 (1.1-1.8); Alkaline Phosphatase 128 U/L (38-126); Anion Gap 16.2 mEq/L (5-15); Aspartate Amino Transferase 61 U/L (14-36); Bilirubin,Total 0.5 mg/dl (0.2-1.3); Blood Urea Nitrogen 22 mg/dl (7-17); Carbon Dioxide 29 mmol/L (22.0-30.0); Estimated Glomerular Filt Rate 82 ml/min (>60); GFR (African American) 99 ML/MIN (>60); Globulin 3.1 g/dL (1.3-3.2); Total Protein,Serum 7.3 g/dl (6.3-8.2)
[2023-06-04 13:08] LABS: Calcium 9.3 mg/dl (8.4-10.2); Glucose 306 mg/dl (74-100)
[2023-06-05 09:15] LABS: Magnesium 1.2 mg/dl (1.6-2.3)
== END ==
PROVIDERS: Obstetrics & Gynecology Gynecologic Oncology; PCP Family Medicine; Visit Provider Family Medicine
DX: C54.1 Malignant neoplasm of endometrium (principal)
CPT/HCPCS: 36415; 80053; 83735; 85025

== ENCOUNTER 2023-06-12 13:06 | Outpatient (CLI) | payer MEDICARE, SELFPAY ==
[2023-06-12 13:23] VITALS: BMI 34.0
[2023-06-12 13:34] VITALS: BP 110/60; PULSE 77; RESP 16; TEMP 36.6; O2SAT 94
[2023-06-12 13:43] LABS: Basophils % 0.6 % (0.1-2.0); Eosinophils # 0.5 K/mm3 (0.0-0.4); Eosinophils % 6.5 % (0.1-12.0); Hematocrit 36.6 % (37.0-47.0); Hemoglobin 11.9 g/dL (12.2-16.2); Lymphocytes # 1.1 K/mm3 (0.7-4.5); Lymphocytes % 15.7 % (10-50); Mean Corpuscular HGB Conc 32.6 g/dL (31.8-35.4); Mean Corpuscular Volume 98.3 fl (81-99); Mean Platelet Volume 7.5 fl (7.4-10.4); Monocytes # 0.5 K/mm3 (0.1-1.0); Monocytes % 6.6 % (1.7-9.3); Neutrophils # 5.1 K/mm3 (1.8-7.8); Neutrophils % 70.6 % (37.0-80.0); Platelet Count 339 K/mm3 (142-424); Red Blood Count 3.72 M/mm3 (4.20-5.40); Red Cell Distribution Width 17.1 % (11.5-17.5); White Blood Count 7.2 K/mm3 (4.8-10.8)
[2023-06-12 13:45] LABS: Chloride 94 mmol/L (98-107); Potassium 3.7 mmoL/L (3.5-5.1); Sodium 133 mmol/L (136-145)
[2023-06-12 13:48] LABS: Alanine Aminotransferase 43 U/L (12-78); Albumin Level 4.4 g/dl (3.5-5.0); Albumin/Globulin Ratio 1.4 (1.1-1.8); Alkaline Phosphatase 99 U/L (38-126); Anion Gap 15.7 mEq/L (5-15); Aspartate Amino Transferase 47 U/L (14-36); Bilirubin,Total 0.6 mg/dl (0.2-1.3); Blood Urea Nitrogen 22 mg/dl (7-17); Carbon Dioxide 27 mmol/L (22.0-30.0); Creatinine Clearance Estimated 78 mL/min (50-200); Estimated Glomerular Filt Rate 70 ml/min (>60); GFR (African American) 85 ML/MIN (>60); Globulin 3.2 g/dL (1.3-3.2); Total Protein,Serum 7.6 g/dl (6.3-8.2)
[2023-06-12 13:49] LABS: Calcium 8.9 mg/dl (8.4-10.2); Glucose 288 mg/dl (74-100)
[2023-06-12 14:34] VITALS: BP 120/63; PULSE 82; RESP 16; TEMP 36.6; O2SAT 94
== END 2023-06-12 14:40 | disposition home or self-care (01) ==
LOC: INF 13:08
PROVIDERS: Obstetrics & Gynecology Gynecologic Oncology; PCP Family Medicine; Visit Provider Family Medicine
DX: C54.1 Malignant neoplasm of endometrium (principal); E83.42 Hypomagnesemia
CPT/HCPCS: 80053; 85025; 96365; J3475

== ENCOUNTER → 2023-06-18 10:54 | Outpatient (CLI) | payer MEDICARE, SELFPAY ==
[2023-06-18 11:31] LABS: Basophils # 0.1 K/mm3 (0-0.2); Basophils % 0.7 % (0.1-2.0); Eosinophils # 0.7 K/mm3 (0.0-0.4); Eosinophils % 9.5 % (0.1-12.0); Hematocrit 37.1 % (37.0-47.0); Hemoglobin 12.2 g/dL (12.2-16.2); Lymphocytes # 1.3 K/mm3 (0.7-4.5); Lymphocytes % 18.2 % (10-50); Mean Corpuscular HGB Conc 32.9 g/dL (31.8-35.4); Mean Corpuscular Hemoglobin 32.2 pg (27.0-31.2); Mean Corpuscular Volume 97.9 fl (81-99); Mean Platelet Volume 7.7 fl (7.4-10.4); Monocytes # 0.5 K/mm3 (0.1-1.0); Monocytes % 6.7 % (1.7-9.3); Neutrophils # 4.7 K/mm3 (1.8-7.8); Platelet Count 377 K/mm3 (142-424); Red Blood Count 3.79 M/mm3 (4.20-5.40); Red Cell Distribution Width 16.8 % (11.5-17.5); White Blood Count 7.3 K/mm3 (4.8-10.8)
[2023-06-18 12:39] LABS: Chloride 96 mmol/L (98-107); Potassium 4.2 mmoL/L (3.5-5.1); Sodium 132 mmol/L (136-145)
[2023-06-18 12:41] LABS: Alanine Aminotransferase 45 U/L (12-78); Alkaline Phosphatase 82 U/L (38-126); Aspartate Amino Transferase 59 U/L (14-36); Bilirubin,Total 0.5 mg/dl (0.2-1.3); Blood Urea Nitrogen 23 mg/dl (7-17); Estimated Glomerular Filt Rate 82 ml/min (>60); GFR (African American) 99 ML/MIN (>60)
[2023-06-18 12:42] LABS: Albumin Level 4.2 g/dl (3.5-5.0); Albumin/Globulin Ratio 1.4 (1.1-1.8); Anion Gap 16.2 mEq/L (5-15); Calcium 9.2 mg/dl (8.4-10.2); Carbon Dioxide 24 mmol/L (22.0-30.0); Glucose 316 mg/dl (74-100); Total Protein,Serum 7.2 g/dl (6.3-8.2)
== END ==
PROVIDERS: PCP Family Medicine; Visit Provider Obstetrics & Gynecology Gynecologic Oncology
DX: C54.1 Malignant neoplasm of endometrium (principal)
CPT/HCPCS: 36415; 80053; 85025

== ENCOUNTER → 2023-06-26 11:34 | Outpatient (CLI) | payer MEDICARE, SELFPAY ==
[2023-06-26 11:52] LABS: Basophils % 0.4 % (0.1-2.0); Eosinophils # 0.6 K/mm3 (0.0-0.4); Eosinophils % 6.5 % (0.1-12.0); Hematocrit 35.2 % (37.0-47.0); Hemoglobin 11.7 g/dL (12.2-16.2); Lymphocytes # 1.4 K/mm3 (0.7-4.5); Lymphocytes % 14.9 % (10-50); Mean Corpuscular HGB Conc 33.4 g/dL (31.8-35.4); Mean Corpuscular Hemoglobin 32.7 pg (27.0-31.2); Mean Platelet Volume 6.6 fl (7.4-10.4); Monocytes # 0.5 K/mm3 (0.1-1.0); Monocytes % 5.5 % (1.7-9.3); Neutrophils # 6.8 K/mm3 (1.8-7.8); Neutrophils % 72.7 % (37.0-80.0); Platelet Count 366 K/mm3 (142-424); Red Blood Count 3.59 M/mm3 (4.20-5.40); Red Cell Distribution Width 16.1 % (11.5-17.5); White Blood Count 9.4 K/mm3 (4.8-10.8)
[2023-06-26 12:25] LABS: Chloride 94 mmol/L (98-107); Potassium 3.9 mmoL/L (3.5-5.1); Sodium 134 mmol/L (136-145)
[2023-06-26 12:27] LABS: Alanine Aminotransferase 38 U/L (12-78); Aspartate Amino Transferase 35 U/L (14-36); Blood Urea Nitrogen 25 mg/dl (7-17); Estimated Glomerular Filt Rate 61 ml/min (>60); GFR (African American) 74 ML/MIN (>60)
[2023-06-26 12:28] LABS: Albumin Level 4.3 g/dl (3.5-5.0); Albumin/Globulin Ratio 1.4 (1.1-1.8); Alkaline Phosphatase 102 U/L (38-126); Anion Gap 18.9 mEq/L (5-15); Bilirubin,Total 0.6 mg/dl (0.2-1.3); Calcium 9.2 mg/dl (8.4-10.2); Carbon Dioxide 25 mmol/L (22.0-30.0); Glucose 326 mg/dl (74-100); Total Protein,Serum 7.3 g/dl (6.3-8.2)
== END ==
PROVIDERS: PCP Family Medicine; Visit Provider Obstetrics & Gynecology Gynecologic Oncology
DX: C54.1 Malignant neoplasm of endometrium (principal)
CPT/HCPCS: 36415; 80053; 85025

== ENCOUNTER → 2023-07-04 12:40 | Outpatient (CLI) | payer MEDICARE, SELFPAY ==
[2023-07-04 13:13] LABS: Basophils # 0.1 K/mm3 (0-0.2); Basophils % 0.6 % (0.1-2.0); Eosinophils # 0.6 K/mm3 (0.0-0.4); Eosinophils % 7.1 % (0.1-12.0); Hemoglobin 12.4 g/dL (12.2-16.2); Lymphocytes # 1.3 K/mm3 (0.7-4.5); Lymphocytes % 14.9 % (10-50); Mean Corpuscular HGB Conc 32.7 g/dL (31.8-35.4); Mean Corpuscular Hemoglobin 31.8 pg (27.0-31.2); Mean Corpuscular Volume 97.3 fl (81-99); Mean Platelet Volume 7.6 fl (7.4-10.4); Monocytes # 0.5 K/mm3 (0.1-1.0); Monocytes % 5.2 % (1.7-9.3); Neutrophils # 6.2 K/mm3 (1.8-7.8); Neutrophils % 72.1 % (37.0-80.0); Platelet Count 413 K/mm3 (142-424); Red Blood Count 3.91 M/mm3 (4.20-5.40); Red Cell Distribution Width 16.3 % (11.5-17.5); White Blood Count 8.6 K/mm3 (4.8-10.8)
[2023-07-04 13:34] LABS: Alanine Aminotransferase 35 U/L (12-78); Albumin/Globulin Ratio 1.4 (1.1-1.8); Alkaline Phosphatase 85 U/L (38-126); Aspartate Amino Transferase 42 U/L (14-36); Bilirubin,Total 0.4 mg/dl (0.2-1.3); Blood Urea Nitrogen 19 mg/dl (7-17); Calcium 9.2 mg/dl (8.4-10.2); Carbon Dioxide 28 mmol/L (22.0-30.0); Chloride 94 mmol/L (98-107); Estimated Glomerular Filt Rate 70 ml/min (>60); GFR (African American) 85 ML/MIN (>60); Globulin 2.8 g/dL (1.3-3.2); Glucose 287 mg/dl (74-100); Sodium 132 mmol/L (136-145); Total Protein,Serum 6.8 g/dl (6.3-8.2)
[2023-07-04 13:35] LABS: Magnesium 1.3 mg/dl (1.6-2.3)
[2023-07-04 17:42] LABS: Adenovirus,PCR Not Detected (NotDetected); Coronavirus 19, PCR Not Detected (NotDetected); Coronavirus 229E Not Detected (NotDetected); Coronavirus NL63 Not Detected (NotDetected); Coronavirus OC43 Not Detected (NotDetected); Coronovirus HKU1,PCR Not Detected (NotDetected); Human Metapneumovirus Not Detected (NotDetected); Influenza A, PCR Not Detected (NotDetected); Influenza AH1, 2009 Not Detected (NotDetected); Influenza AH1, PCR Not Detected (NotDetected); Influenza AH3,PCR Not Detected (NotDetected); Influenza B, PCR Not Detected (NotDetected); Parainfluenza 1, PCR Not Detected (NotDetected); Parainfluenza 2, PCR Not Detected (NotDetected); Parainfluenza 3, PCR Not Detected (NotDetected); Parainfluenza 4, PCR Not Detected (NotDetected); Respiratory Syncytial Virus Not Detected (NotDetected); Rhinovirus/Enterovirus Not Detected (NotDetected)
== END ==
PROVIDERS: Internal Medicine; PCP Family Medicine; Referring Provider Family Medicine; Visit Provider Obstetrics & Gynecology Gynecologic Oncology
DX: J06.9 Acute upper respiratory infection, unspecified; R05.9 Cough, unspecified; R06.02 Shortness of breath; R50.9 Fever, unspecified; C54.1 Malignant neoplasm of endometrium
CPT/HCPCS: 36415; 80053; 83735; 85025; 87632; 87635

== ENCOUNTER 2023-07-09 14:11 | Outpatient (CLI) | payer MEDICARE, SELFPAY ==
--- NOTE | 2023-07-09 14:32 | XR_ITS ---
FINAL REPORT CLINICAL HISTORY: Shortness of breath, COUGH METS LUNG CANCER FINDINGS: TWO-VIEW CHEST The heart size is normal. The mediastinum is normal. There are several bilateral pulmonary opacities, largest in the right mid lung measures 24 mm worrisome for neoplasm. Small pleural effusions are identified. There is right basilar atelectasis or pneumonia. There is no pneumothorax. IMPRESSION: Pulmonary opacities worrisome for neoplasm. This could be further evaluated with follow-up chest CT. Reviewed, Interpreted and Dictated by Goyo Alberto III, MD Transcribed by Lynda Handy Authenticated and [facility]
[2023-07-09 15:03] LABS: Basophils # 0.1 K/mm3 (0-0.2); Basophils % 0.8 % (0.1-2.0); Eosinophils # 0.5 K/mm3 (0.0-0.4); Eosinophils % 6.4 % (0.1-12.0); Hematocrit 40.4 % (37.0-47.0); Hemoglobin 12.9 g/dL (12.2-16.2); Lymphocytes # 1.1 K/mm3 (0.7-4.5); Lymphocytes % 13.4 % (10-50); Mean Corpuscular Hemoglobin 31.2 pg (27.0-31.2); Mean Corpuscular Volume 97.5 fl (81-99); Mean Platelet Volume 7.6 fl (7.4-10.4); Monocytes # 0.5 K/mm3 (0.1-1.0); Monocytes % 6.2 % (1.7-9.3); Neutrophils # 6.1 K/mm3 (1.8-7.8); Neutrophils % 73.1 % (37.0-80.0); Platelet Count 427 K/mm3 (142-424); Red Blood Count 4.14 M/mm3 (4.20-5.40); Red Cell Distribution Width 16.1 % (11.5-17.5); White Blood Count 8.4 K/mm3 (4.8-10.8)
[2023-07-09 15:28] LABS: Alanine Aminotransferase 38 U/L (12-78); Albumin Level 3.9 g/dl (3.5-5.0); Albumin/Globulin Ratio 1.3 (1.1-1.8); Alkaline Phosphatase 113 U/L (38-126); Anion Gap 14.8 mEq/L (5-15); Aspartate Amino Transferase 47 U/L (14-36); Bilirubin,Total 0.4 mg/dl (0.2-1.3); Blood Urea Nitrogen 25 mg/dl (7-17); Calcium 8.8 mg/dl (8.4-10.2); Carbon Dioxide 24 mmol/L (22.0-30.0); Chloride 97 mmol/L (98-107); Estimated Glomerular Filt Rate 70 ml/min (>60); GFR (African American) 85 ML/MIN (>60); Glucose 190 mg/dl (74-100); Potassium 3.8 mmoL/L (3.5-5.1); Sodium 132 mmol/L (136-145); Total Protein,Serum 6.9 g/dl (6.3-8.2)
== END 2023-07-09 23:59 ==
LOC: RAD 14:14
PROVIDERS: Obstetrics & Gynecology Gynecologic Oncology; PCP Internal Medicine; Visit Provider Internal Medicine
DX: C54.1 Malignant neoplasm of endometrium (principal); R06.02 Shortness of breath
CPT/HCPCS: 36415; 71046; 80053; 85025

== ENCOUNTER 2023-07-10 14:12 | Outpatient (CLI) | payer MEDICARE, SELFPAY ==
[2023-07-10 14:30] VITALS: BP 115/70; PULSE 89; RESP 19; O2SAT 89
[2023-07-10] MEDS: MAGNESIUM SULFATE IN WATER 2 GM/50 ML PIGGYBACK IV (14:30)
[2023-07-10] MEDS: SODIUM CHLORIDE 0.9% 50ML BAG 50 ML IV (14:30)
[2023-07-10 16:00] VITALS: BP 148/62; PULSE 68; RESP 18; O2SAT 90
== END 2023-07-10 16:00 | disposition home or self-care (01) ==
LOC: INF 14:13
PROVIDERS: PCP Internal Medicine; Visit Provider Internal Medicine
DX: E83.42 Hypomagnesemia (principal)
CPT/HCPCS: 96365; J3475

== ENCOUNTER 2023-07-28 11:43 | Emergency (ER) | payer MEDICARE, SELFPAY ==
[2023-07-28] VITALS (7 sets, daily range): BP systolic 113–149; BP diastolic 61–89; PULSE 92–103; RESP 24; TEMP 36.7–36.8; O2SAT 92–97; BMI 34.8
--- NOTE | 2023-07-28 11:42 | ECG_ITS ---
APPROVED REPORT Exam: Resting ECG HR:104 bpm ECG Measurements Heart Rate 104 AXES ND 153 P 70 QRSd 88 QRS 44 QT 316 T 80 QTc 376 Conclusion SINUS TACHYCARDIA INDETERMINATE AXIS ABNORMAL RHYTHM ECG UNCONFIRMED REPORT Electronically signed by : Solomon Collins MD 07/29/2023 17:30:05
--- NOTE | 2023-07-28 11:53 | XR_ITS ---
PROCEDURE INFORMATION: Exam: XR Chest Exam date and time: 07/28/2023 12:22 PM Age: 77 years old Clinical indication: Shortness of breath; Additional info: SOA TECHNIQUE: Imaging protocol: Radiologic exam of the chest. Views: 1 view. COMPARISON: CT ANGIO CHEST PE PROTOCOL 07/28/2023 12:06 PM FINDINGS: Lungs: Streaky opacities in the bilateral lungs can represent atelectasis versus superimposed pneumonia. Pleural spaces: Large right, moderate pleural effusion. Heart/Mediastinum: Unremarkable. No cardiomegaly. Bones/joints: Unremarkable. Soft tissues: Nodular subpleural lesions are better characterized on preceding CT angiogram of the chest. IMPRESSION: 1. Nodular subpleural lesions are better characterized on preceding CT angiogram of the chest. 2. Large right, moderate left pleural effusions
--- NOTE | 2023-07-28 11:53 | CT_ITS ---
PROCEDURE INFORMATION: Exam: CTA Chest With Contrast Exam date and time: 07/28/2023 12:06 PM Age: 77 years old Clinical indication: Shortness of breath; Additional info: SOA known pe, look for pna, effusions, strain TECHNIQUE: Imaging protocol: Computed tomographic angiography of the chest with contrast. Exam focused on the arteries. 3D rendering (Not supervised by radiologist): MIP and/or 3D reconstructed images were created by the technologist. Radiation optimization: All CT scans at this facility use at least one of these dose optimization techniques: automated exposure control; mA and/or kV adjustment per patient size (includes targeted exams where dose is matched to clinical indication); or iterative reconstruction. Contrast material: ISOVUE; Contrast volume: 75 ml; Contrast route: INTRAVENOUS (IV); COMPARISON: CR XR CHEST 2V 07/09/2023 2:41 PM FINDINGS: Pulmonary arteries: No evidence of filling defects to suggest pulmonary emboli. Aorta: Aorta is nonaneurysmal. Trachea: Main airways are patent. Lungs: Right lower lobe and middle lobe collapse. Dependent atelectasis in left lower lobe noted. Several pulmonary nodules concerning for metastases. A corporate representative nodule is in the left pulmonary fissure measuring 14 mm. Pleural spaces: Large right, moderate left pleural effusions. There are enhancing subpleural nodules Heart: No cardiomegaly or pericardial effusion. Heart RV/LV ratio: The RV/LV ratio is less than 1. Coronary arteries: There is moderate atherosclerotic calcification of the coronary arteries. Lymph nodes: Multi station mediastinal lymphadenopathy. Gallbladder and bile ducts: Cholelithiasis noted without pericholecystic fluid/stranding. Bones/joints: Unremarkable. No acute fracture. Soft tissues: Unremarkable. Other findings: There is a 2 cm nodule abutting the left pericardial sac suspicious for tumor deposit. IMPRESSION: 1. Several pulmonary nodules and subpleural concerning for metastases. A corporate representative nodule is in the left pulmonary fissure measuring 14 mm. 2. There is a 2 cm nodule abutting the left pericardial sac suspicious for tumor deposit. 3. Multi station mediastinal lymphadenopathy 4. No evidence of filling defects to suggest pulmonary emboli.
--- NOTE | 2023-07-28 12:00 | ED_ITS ---
Discharge Plan Disposition Patient Disposition: Xfer Short-Term Hosp Condition: Fair Chief Complaint: Shortness of Breath/Dyspnea Prescriptions Prescriptions: No Action benzonatate 100 mg capsule 100 mg PO BID PRN (Reason: cough) Qty: 30 0RF metformin 750 mg tablet extended release 24 hr 500 mg PO QPM simvastatin 20 mg tablet 20 mg PO QHS Caltrate 600 plus D 600 mg (1,500 mg)-800 unit tablet,chewable 1 tab PO BID cholecalciferol (vitamin D3) 5,000 unit capsule 5,000 unit PO DAILY cranberry 500 mg capsule 500 mg PO BID irbesartan 150 mg tablet 150 mg PO DAILY magnesium oxide 400 mg (241.3 mg magnesium) tablet 800 mg PO BID gabapentin 300 MG capsule 300 mg PO BID nabumetone 500 MG tablet 500 mg PO BID oxycodone 5 MG tablet 5 mg PO Q6HP PRN (Reason: pain) enoxaparin 40 MG/0.4 ML syringe 40 mg SQ HS prochlorperazine maleate 10 MG tablet 10 mg PO Q6HP PRN (Reason: n/v) sertraline 25 MG tablet 25 mg PO DAILY hydroxyzine pamoate 25 MG capsule 25 mg PO HS latanoprost (PF) 7.5 ML drops 1 applic OP HS Referrals Follow up/Referrals: Luis M Fisher DO [Primary Care Provider] - See instructions Clinical Impressions Clinical Impression: Pleural effusion Stand Alone Forms Stand Alone Forms: Transfer Record - ED Discharge ED Provider: Rachel Hardy General Adult HPI General Chief complaint: Shortness of Breath/Dyspnea Stated complaint: SOA Time Seen by Provider: 07/28/23 11:44 History of Present Illness HPI narrative: This 77-year-old female with active endometrial cancer and known PE on Eliquis presents to the ER with acute exacerbation of shortness of breath. Patient was going to be directly admitted to [facility] in [place] however they were concerned transporting her that she was unable to tolerate for 4 L nasal cannula and continued to be persistently short of breath so they stopped in the ER for further evaluation hoping to get EMS transportation. Family is at bedside and is concerned for new PE, right heart strain, worsening effusion. Patient is compliant with medications. She is complaining of worse shortness of breath than she has been having previously. Related Data Home Medications Medication Instructions Recorded Confirmed calcium carbonate 600 mg-vitamin 1 tab PO BID Supplement 09/11/18 07/28/23 D3 20 mcg (800 unit) chewable tablet (Caltrate 600 plus D) cholecalciferol (vitamin D3) 125 5,000 unit PO DAILY Supplement 09/11/1807/28 mcg (5,000 unit) capsule cranberry 500 mg capsule 500 mg PO BID urine 09/11/18 07/28/23 metformin 750 mg tablet,extended 500 mg PO QPM Diabetes 09/11/18 07/28/23 release 24 hr simvastatin 20 mg tablet 20 mg PO QHS High cholesterol 09/11/18 07/28/23 irbesartan 150 mg tablet 150 mg PO DAILY . 12/12/18 07/28/23 gabapentin 300 mg capsule 300 mg PO BID Pain 08/11/21 07/28/23 enoxaparin 40 mg/0.4 mL 40 mg SQ HS s/p 12/31/21 07/28/23 subcutaneous syringe hydroxyzine pamoate 25 mg capsule 25 mg PO HS sleep 12/31/21 07/28/23 latanoprost (PF) 0.005 % eye drops 1 applic ophthalmic (eye) HS eyes 12/31/21 07/28/23 nabumetone 500 mg tablet 500 mg PO BID . 12/31/21 07/28/23 oxycodone 5 mg tablet 5 mg PO Q6HP PRN pain 12/31/21 07/28/23 prochlorperazine maleate 10 mg 10 mg PO Q6HP PRN n/v 12/31/21 07/28/23 tablet sertraline 25 mg tablet 25 mg PO DAILY Depression 12/31/21 07/28/23 magnesium oxide 400 mg (241.3 mg 800 mg PO BID 05/16/23 07/28/23 magnesium) tablet Previous Rx's Medication Instructions Recorded benzonatate 100 mg capsule 100 mg PO BID PRN cough #30 caps 06/22/22 Allergies Allergy/AdvReac Type Severity Reaction Status Date / Time codeine [CODEINE] AdvReac Unknown NA-NAUSEA/V Verified 07/28/23 13:36 OMITING PFSH PFSH Disclaimer: The information contained in this section may have been updated after the patient was seen, as this information can be updated by other users. Medical History Cancer Diabetes mellitus, type 2 Hyperlipidemia Hypertension Urinary tract infection Surgical History History of appendectomy History of cholecystectomy History of hysterectomy Social History Smoking Status: Never smoker alcohol intake: never current occupational status: other Travel in the last 8 weeks: None household members: other housing: house ROS Obtained: Yes All systems reviewed & no additional complaints except as documented Constitutional Constitutional: Denies chills, Denies fever(s), Denies headache(s) and Denies weakness Eyes Eyes: Denies change in vision ENT Ears, Nose, Mouth, and Throat: Denies dizziness, Denies headache(s), Denies nasal congestion and Denies sore throat Cardiovascular Cardiovascular: Denies chest pain, Reports dyspnea and Denies leg edema Respiratory Respiratory: Reports shortness of breath, Denies cough and Reports dyspnea Gastrointestinal Gastrointestingal: Denies abdominal pain, nausea or vomiting Genitourinary Female Genitourinary: Denies dysuria Musculoskeletal Musculoskeletal: Denies arthralgias, Denies myalgias, Denies numbness and Denies tingling Integumentary/Breasts Skin/Breast: Denies change in pigmentation Neurologic Neurologic: Denies dizziness, Denies headache(s), Denies numbness, Denies tingling and Denies weakness Physical Exam General General appearance: alert and in distress Comment: Chronically ill-appearing, in distress due to increased work of breathing Head Head exam: atraumatic and normocephalic Eye Eye exam: Present PERRL and EOMI ENT ENT exam: Present mucous membranes moist Neck Neck exam: Present normal inspection and full ROM Chest Chest inspection: Present symmetric chest wall rise Respiratory Respiratory exam: Present normal lung sounds bilaterally, respiratory distress (Mild respiratory distress and increased work of breathing, saturating 94 to 95% on nonrebreather, arrived at 85% on home 4 L nasal cannula) and other (Breath sounds diminished at the left base, breath sounds diminished in the mid and lower right lung field, no peripheral edema); Absent wheezes or stridor Cardiovascular Cardiovascular exam: Present regular rate and normal rhythm Abdominal Exam Abdominal exam: Present soft; Absent distention, tenderness, guarding or rebound Extremities Exam Extremities exam: Present full ROM Neurological Exam Neurological exam: Present alert and oriented X3; Absent motor sensory deficit Psychiatric Psychiatric exam: Present normal affect and normal mood Skin Skin exam: Present warm and dry Medical Decision Making [place] Inquiry Pt receiving controlled substance: No Vital Signs: 07/28/23 12:03 07/28/23 12:32 07/28/23 11:46 Temperature 98.3 F Temperature Source Axillary Pulse Rate 102 H Pulse Rate [Right Brachial] 103 H Respiratory Rate 24 24 Blood Pressure 149/89 H Blood Pressure [Right Arm] 149/89 H Blood Pressure Mean 118 Blood Pressure Mean [Right Arm] 109 Blood Pressure Source [Right Arm] Automatic Cuff Blood Pressure Position [Right Arm] Sitting 02 Sat by Pulse Oximetry 94 L 97 95 Oxygen Delivery Method Non-Rebreather Vapotherm Vapotherm Oxygen Flow Rate (LPM) 10 30 07/28/23 12:00 07/28/23 12:32 07/28/23 13:00 Temperature Temperature Source Pulse Rate 92 H 103 H 100 H Pulse Rate [Right Brachial] Respiratory Rate 24 24 Blood Pressure 141/79 H 139/79 134/73 Blood Pressure [Right Arm] Blood Pressure Mean 107 99 Blood Pressure Mean [Right Arm] Blood Pressure Source [Right Arm] Blood Pressure Position [Right Arm] 02 Sat by Pulse Oximetry 96 95 92 L Oxygen Delivery Method Vapotherm Vapotherm Vapotherm Oxygen Flow Rate (LPM) Lab Data Lab Results 07/28/23 11:55: WBC 8.7, RBC 4.11 L, Hgb 12.8, Hct 38.6, MCV 94.0, MCH 31.2, MCHC 33.2, RDW 16.4, Plt Count 451 H, MPV 8.1, Neut % (Auto) 71.8, Lymph % (Auto) 15.8, Mccreary % (Auto) 6.0, Eos % (Auto) 5.8, Baso % (Auto) 0.6, Neut # (Auto) 6.3, Lymph # (Auto) 1.4, Mccreary # (Auto) 0.5, Eos # (Auto) 0.5 H, Baso # (Auto) 0.1, Sodium 133 L, Potassium 3.9, Chloride 98, Carbon Dioxide 23, Anion Gap 15.9 H, BUN 20 H, Creatinine 0.60, Estimated Creat Clear 80, Estimated GFR 97, Est GFR ( Amer) 118, Glucose 148 H, Calcium 9.2, Total Bilirubin 0.4, AST 38 H, ALT 28, Alkaline Phosphatase 89, Troponin I < 0.01, Total Protein 6.6, Albumin 3.7, Globulin 2.9, Albumin/Globulin Ratio 1.3 07/28/23 11:55 07/28/23 11:55 Orders (Tests/Meds): ED MEDICATIONS Generic Name Dose Route Start Last Admin Trade Name Freq PRN Reason Stop Dose Admin Sodium Chloride 10 ml 07/28/23 12:32 07/28/23 12:33 Sodium Chloride 0.9% 10ml Syr (Rad Only) IV 08/27/23 12:31 10 ml NEEDED PRN Administration Maintain IV Site Discontinued Medications Generic Name Dose Route Start Last Admin Trade Name Freq PRN Reason Stop Dose Admin Iopamidol 75 ml 07/28/23 12:32 07/28/23 12:33 Iopamidol-370 (76%);100ml Bottle IV 07/28/23 12:33 75 ml ONCE ONE Administration Sodium Chloride 50 ml 07/28/23 12:32 07/28/23 12:33 0.9 % Sodium Chloride 50 Ml Vial IV 07/28/23 12:33 50 ml ONCE ONE Administration ORDERS Category Date Time Status CT angio chest PE protocol Stat Cat Scan 07/28/23 11:53 Completed CXR --portable [XR chest portable] Stat Exams 07/28/23 11:53 Completed POCUS Point of Care (ER Only) Stat Exams 07/28/23 12:00 Ordered CBC w/Auto Diff [Complete Blood Count Auto Diff] Stat Lab 07/28/23 11:55 Completed CMP [Comprehensive Metabolic Panel] Stat Lab 07/28/23 11:55 Completed Trop I [Troponin I] Stat Lab 07/28/23 11:55 Completed Troponin I Q3H Lab 07/28/23 15:00 Ordered Troponin I Q3H Lab 07/28/23 18:00 Ordered VBG [Venous Blood Gas] Stat RT 07/28/23 12:00 Ordered Medical Decision Narrative: In summary, this 77year old female presents to the emergency department today with shortness of breath and hypoxia on home nasal cannula in the setting of known endometrial cancer, known PE, known pleural effusion which are comorbidities of current condition. On initial evaluation patient is hemodynamically stable but in mild respiratory distress with increased work of breathing, improved saturations now that she is on nonrebreather, no peripheral edema, mild tachycardia with heart rate 104, no hypotension. Differential diagnosis includes but is not limited to PE, pleural effusion, pneumonia, right heart strain, ACS, progressive malignant disease. Based on these concerns, I ordered emergent imaging, I performed bedside ultrasound, see procedure note for details, and appropriate labs including cardiac workup. ECG personally interpreted demonstrates sinus tachycardia, rate 104, no STEMI, normal axis, normal intervals. Patient received high flow nasal cannula for treatment. Labs personally reviewed demonstrate no leukocytosis or anemia, CMP with findin gs similar to prior, no actionable electrolyte abnormalities, initial troponin less than 0.01 reassuring against significant right heart strain. XR personally interpreted demonstrates large right and moderate left pleural effusion as well as lesions in the lungs. See radiology read for final inter pretation. CT imaging personally interpreted demonstrate no saddle PE, on my personal interpretation no obvious filling defect of PE, large right and moderate left pleural effusion, subpleural lesions present. See radiology read for final interpretation Bedside ultrasound of the heart did not demonstrate significant findings of right heart strain though the apex of the right heart was hyperdynamic. I had an interactive discussion with Dr. Bowie at transfer center who requested ED to ED transfer because patient is requiring increased oxygen supplementation compared to her baseline which excludes her from being able to go to the acute care bed that was reserved for her. Family is comfortable with this plan. Patient is remaining hemodynamically stable, heart rate is somewhat improved now that she is not working so hard to breathe. She will be transferred on nonrebreather which she has tolerated well. I did consider performing therapeutic thoracentesis prior to transfer however since she was stable and comfortable on nonrebreather and is supposed to have a procedure in the next 24 hours for more definitive management of these effusions which do not appear to be causing hemodynamic compromise at this time, I believe it is more appropriate for patient to be transferred then to perform this procedure myself at this time. Patient and family are comfortable with this plan. Patient was transferred in stable condition on nonrebreather via ALS ambulance. Procedures Miscellaneous Procedure Procedure Performed: Limited Cardiac Ultrasound Indication: Shortness of breath Identified cardiac views: Parasternal short, apical four-chamber Findings: Cardiac activity present with no gross wall motion abnormality, no pericardial effusion, hyperdynamic apex at the right ventricle however there is no bowing of the septum into the left ventricle and ventricular sizes are approximately equal, no obvious findings of right heart strain Impression: -No effusion, hyperdynamic right ventricular apex but no bowing septum, no obvious right heart strain Images were to permanent archive The study was technically adequate CPT: 49393 This study was performed by me, and I personally interpreted all images/videos. Based on my clinical judgement, these images were adequate and did not necessitate further imaging. Critical Care Critical Care Time Critical Care Time: Yes Attestation: On 07/28/23, the high probability of a clinically significant, sudden or life threatening deterioration of the following system(s) (respiratory, cardiac) required my full and direct attention, intervention and personal management. The time I documented below is in addition to time spent performing reported procedures but includes the following listed in this critical care notation. Total Time Total Critical Care Time: 35
--- NOTE | 2023-07-28 12:08 | PC.NURSE ---
Dr. Hardy at BS
--- NOTE | 2023-07-28 12:12 | PC.NURSE ---
RT at BS
--- NOTE | 2023-07-28 12:15 | PC.NURSE ---
Pt gone to RAD via stretcher. Pt family (Dr. Fisher) remains at BS.
[2023-07-28 12:18] LABS: Basophils # 0.1 K/mm3 (0-0.2); Basophils % 0.6 % (0.1-2.0); Eosinophils # 0.5 K/mm3 (0.0-0.4); Eosinophils % 5.8 % (0.1-12.0); Hematocrit 38.6 % (37.0-47.0); Hemoglobin 12.8 g/dL (12.2-16.2); Lymphocytes # 1.4 K/mm3 (0.7-4.5); Lymphocytes % 15.8 % (10-50); Mean Corpuscular HGB Conc 33.2 g/dL (31.8-35.4); Mean Corpuscular Hemoglobin 31.2 pg (27.0-31.2); Mean Platelet Volume 8.1 fl (7.4-10.4); Monocytes # 0.5 K/mm3 (0.1-1.0); Neutrophils # 6.3 K/mm3 (1.8-7.8); Neutrophils % 71.8 % (37.0-80.0); Platelet Count 451 K/mm3 (142-424); Red Blood Count 4.11 M/mm3 (4.20-5.40); Red Cell Distribution Width 16.4 % (11.5-17.5); White Blood Count 8.7 K/mm3 (4.8-10.8)
[2023-07-28 12:27] LABS: Chloride 98 mmol/L (98-107); Potassium 3.9 mmoL/L (3.5-5.1); Sodium 133 mmol/L (136-145)
[2023-07-28 12:29] LABS: Blood Urea Nitrogen 20 mg/dl (7-17); Creatinine Clearance Estimated 80 mL/min (50-200); Estimated Glomerular Filt Rate 97 ml/min (>60)
[2023-07-28 12:30] LABS: Alanine Aminotransferase 28 U/L (12-78); Albumin Level 3.7 g/dl (3.5-5.0); Albumin/Globulin Ratio 1.3 (1.1-1.8); Alkaline Phosphatase 89 U/L (38-126); Anion Gap 15.9 mEq/L (5-15); Aspartate Amino Transferase 38 U/L (14-36); Bilirubin,Total 0.4 mg/dl (0.2-1.3); Calcium 9.2 mg/dl (8.4-10.2); Carbon Dioxide 23 mmol/L (22.0-30.0); GFR (African American) 118 ML/MIN (>60); Globulin 2.9 g/dL (1.3-3.2); Glucose 148 mg/dl (74-100); Total Protein,Serum 6.6 g/dl (6.3-8.2)
[2023-07-28] MEDS: SODIUM CHLORIDE 0.9% 10ML SYR (RAD ONLY) 10 ML IV (12:33)
[2023-07-28] MEDS: IOPAMIDOL-370 (76%);100ML BOTTLE 75 ML IV (12:33)
[2023-07-28] MEDS: 0.9 % SODIUM CHLORIDE 50 ML VIAL IV (12:33)
--- NOTE | 2023-07-28 12:34 | HMH.ITSTN ---
GFR completion/results were overrode for the use of contrast media by the Physician on a risk vs. benefit situation with this patient.
--- NOTE | 2023-07-28 12:41 | PC.NURSE ---
PT WAS GIVEN TWO PILLOWS ONE PLACED BEHIND HER KNECK AND ONE PLACED UNDER HER LEFT HAND TO HELP MAKE PT LITTLE MORE COMFORTABLE, FAMILY AT BS
[2023-07-28 12:45] LABS: Troponin I < 0.01 ng/ml (0.00-0.034)
--- NOTE | 2023-07-28 13:06 | PC.NURSE ---
CALLED TRANSFER CENTER FOR [facility], PT ALREADY HAD A BED ASK TO SPEAK WITH BARRY
--- NOTE | 2023-07-28 13:13 | PC.NURSE ---
Pt accepted to [facility] ED per Azeb
--- NOTE | 2023-07-28 13:26 | PC.NURSE ---
[facility] contacted about pt transfer, due to truck availability it will be a little bit before they can transfer
[2023-07-28 13:45] LABS: VBG Base Excess -4.1 mmol/L (-2.4-2.3); VBG HCO3 20.5 mmol/L (23-30); VBG Oxygen Saturation 98.3 % (50-70); VBG PCO2 33.3 mmol/L (35-51); VBG PH 7.41 mmol/L (7.31-7.41); VBG PO2 118.8 mmol/L (28-40); VBG Total CO2 21.6 mmol/L (23-27)
--- NOTE | 2023-07-28 13:46 | PC.NURSE ---
Report called to MARNI Hoang at ED.
--- NOTE | 2023-07-28 14:34 | PC.NURSE ---
FAMILY UPDATED THEY ARE VOICING CONCERNS ON WHERE EMS IS TO TRANSPORT PT
== END 2023-07-28 15:31 | disposition short-term general hospital (02) ==
PROVIDERS: Emergency Provider Emergency Medicine; PCP Internal Medicine
DX: J90 Pleural effusion, not elsewhere classified (principal); R09.02 Hypoxemia; R06.02 Shortness of breath; C54.1 Malignant neoplasm of endometrium; R00.0 Tachycardia, unspecified; E11.9 Type 2 diabetes mellitus without complications; I10 Essential (primary) hypertension; E78.5 Hyperlipidemia, unspecified; Z86.711 Personal history of pulmonary embolism
CPT/HCPCS: 71045; 71275; 80053; 82803; 84484; 85025; 93005; 99291; Q9967

== ENCOUNTER 2023-08-15 14:29 | Outpatient (CLI) | payer MEDICARE, SELFPAY ==
[2023-08-15 15:00] LABS: Basophils % 0.4 % (0.1-2.0); Eosinophils # 0.3 K/mm3 (0.0-0.4); Eosinophils % 5.1 % (0.1-12.0); Hematocrit 37.1 % (37.0-47.0); Hemoglobin 12.1 g/dL (12.2-16.2); Lymphocytes % 15.6 % (10-50); Mean Corpuscular HGB Conc 32.7 g/dL (31.8-35.4); Mean Corpuscular Hemoglobin 30.2 pg (27.0-31.2); Mean Corpuscular Volume 92.1 fl (81-99); Mean Platelet Volume 7.7 fl (7.4-10.4); Monocytes # 0.5 K/mm3 (0.1-1.0); Monocytes % 7.3 % (1.7-9.3); Neutrophils # 4.7 K/mm3 (1.8-7.8); Neutrophils % 71.5 % (37.0-80.0); Platelet Count 443 K/mm3 (142-424); Red Blood Count 4.03 M/mm3 (4.20-5.40); Red Cell Distribution Width 16.5 % (11.5-17.5); White Blood Count 6.5 K/mm3 (4.8-10.8)
[2023-08-15 15:13] LABS: Blood Urea Nitrogen 19 mg/dl (7-17); Calcium 9.4 mg/dl (8.4-10.2); Carbon Dioxide 27 mmol/L (22.0-30.0); Chloride 98 mmol/L (98-107); Estimated Glomerular Filt Rate 70 ml/min (>60); GFR (African American) 85 ML/MIN (>60); Glucose 119 mg/dl (74-100); Magnesium 1.8 mg/dl (1.6-2.3); Sodium 135 mmol/L (136-145)
== END 2023-08-15 23:59 ==
LOC: LAB.DROPOF 14:30
PROVIDERS: PCP Internal Medicine; Visit Provider Internal Medicine
DX: C54.1 Malignant neoplasm of endometrium (principal)
CPT/HCPCS: 80048; 83735; 85025

== ENCOUNTER 2023-08-21 15:13 | Outpatient (CLI) | payer MEDICARE, SELFPAY ==
[2023-08-21 15:36] LABS: Basophils % 0.4 % (0.1-2.0); Eosinophils # 0.2 K/mm3 (0.0-0.4); Eosinophils % 4.6 % (0.1-12.0); Hematocrit 37.1 % (37.0-47.0); Hemoglobin 11.9 g/dL (12.2-16.2); Lymphocytes # 0.9 K/mm3 (0.7-4.5); Mean Corpuscular HGB Conc 32.1 g/dL (31.8-35.4); Mean Corpuscular Hemoglobin 28.9 pg (27.0-31.2); Mean Platelet Volume 6.5 fl (7.4-10.4); Monocytes # 0.4 K/mm3 (0.1-1.0); Monocytes % 7.1 % (1.7-9.3); Neutrophils # 3.8 K/mm3 (1.8-7.8); Neutrophils % 71.9 % (37.0-80.0); Platelet Count 462 K/mm3 (142-424); Red Blood Count 4.13 M/mm3 (4.20-5.40); Red Cell Distribution Width 16.3 % (11.5-17.5); White Blood Count 5.3 K/mm3 (4.8-10.8)
[2023-08-21 15:47] LABS: Anion Gap 12.9 mEq/L (5-15); Blood Urea Nitrogen 24 mg/dl (7-17); Calcium 9.4 mg/dl (8.4-10.2); Carbon Dioxide 30 mmol/L (22.0-30.0); Chloride 99 mmol/L (98-107); Estimated Glomerular Filt Rate 61 ml/min (>60); GFR (African American) 74 ML/MIN (>60); Glucose 133 mg/dl (74-100); Potassium 3.9 mmoL/L (3.5-5.1); Sodium 138 mmol/L (136-145)
== END 2023-08-21 23:59 ==
PROVIDERS: PCP Internal Medicine; Visit Provider Obstetrics & Gynecology
DX: C54.1 Malignant neoplasm of endometrium (principal)
CPT/HCPCS: 80048; 83735; 85025

== ENCOUNTER 2023-08-29 15:26 | Outpatient (CLI) | payer MEDICARE, SELFPAY ==
[2023-08-29 16:07] LABS: Chloride 102 mmol/L (98-107); Potassium 3.7 mmoL/L (3.5-5.1); Sodium 135 mmol/L (136-145)
[2023-08-29 16:10] LABS: Anion Gap 8.7 mEq/L (5-15); Blood Urea Nitrogen 29 mg/dl (7-17); Calcium 9.5 mg/dl (8.4-10.2); Carbon Dioxide 28 mmol/L (22.0-30.0); Estimated Glomerular Filt Rate 54 ml/min (>60); GFR (African American) 65 ML/MIN (>60); Glucose 106 mg/dl (74-100)
[2023-08-29 16:11] LABS: Magnesium 1.8 mg/dl (1.6-2.3)
[2023-08-29 16:17] LABS: Basophils % 0.4 % (0.1-2.0); Eosinophils # 0.2 K/mm3 (0.0-0.4); Eosinophils % 2.6 % (0.1-12.0); Hematocrit 39.1 % (37.0-47.0); Hemoglobin 12.2 g/dL (12.2-16.2); Lymphocytes % 14.4 % (10-50); Mean Corpuscular HGB Conc 31.1 g/dL (31.8-35.4); Mean Corpuscular Volume 93.2 fl (81-99); Mean Platelet Volume 8.4 fl (7.4-10.4); Monocytes # 0.5 K/mm3 (0.1-1.0); Monocytes % 7.2 % (1.7-9.3); Neutrophils # 5.4 K/mm3 (1.8-7.8); Neutrophils % 75.4 % (37.0-80.0); Platelet Count 454 K/mm3 (142-424); Red Blood Count 4.19 M/mm3 (4.20-5.40); Red Cell Distribution Width 16.8 % (11.5-17.5); White Blood Count 7.2 K/mm3 (4.8-10.8)
== END 2023-08-29 23:59 ==
PROVIDERS: PCP Internal Medicine; Visit Provider Internal Medicine
DX: C54.1 Malignant neoplasm of endometrium (principal)
CPT/HCPCS: 80048; 83735; 85025

== ENCOUNTER 2023-09-26 11:03 | Outpatient (CLI) | payer MEDICARE, SELFPAY ==
[2023-09-26 17:48] LABS: Basophils # 0.1 K/mm3 (0-0.2); Basophils % 1.5 % (0.1-2.0); Eosinophils # 0.2 K/mm3 (0.0-0.4); Eosinophils % 3.7 % (0.1-12.0); Hematocrit 34.3 % (37.0-47.0); Hemoglobin 10.8 g/dL (12.2-16.2); Lymphocytes # 1.2 K/mm3 (0.7-4.5); Lymphocytes % 25.8 % (10-50); Mean Corpuscular HGB Conc 31.6 g/dL (31.8-35.4); Mean Corpuscular Hemoglobin 29.3 pg (27.0-31.2); Mean Corpuscular Volume 92.6 fl (81-99); Mean Platelet Volume 7.6 fl (7.4-10.4); Monocytes # 0.3 K/mm3 (0.1-1.0); Neutrophils # 2.9 K/mm3 (1.8-7.8); Neutrophils % 62.1 % (37.0-80.0); Platelet Count 415 K/mm3 (142-424); Red Cell Distribution Width 18.4 % (11.5-17.5); White Blood Count 4.7 K/mm3 (4.8-10.8)
[2023-09-26 19:14] LABS: Chloride 98 mmol/L (98-107); Potassium 4.4 mmoL/L (3.5-5.1); Sodium 133 mmol/L (136-145)
[2023-09-26 19:17] LABS: Anion Gap 12.4 mEq/L (5-15); Blood Urea Nitrogen 24 mg/dl (7-17); Carbon Dioxide 27 mmol/L (22.0-30.0); Estimated Glomerular Filt Rate 70 ml/min (>60); GFR (African American) 84 ML/MIN (>60)
[2023-09-26 19:18] LABS: Glucose 133 mg/dl (74-100); Magnesium 1.8 mg/dl (1.6-2.3)
== END 2023-09-26 23:59 ==
PROVIDERS: PCP Internal Medicine; Visit Provider Internal Medicine
DX: E87.8 Other disorders of electrolyte and fluid balance, not elsewhere classified (principal); D64.9 Anemia, unspecified; E83.42 Hypomagnesemia
CPT/HCPCS: 80048; 83735; 85025

== ENCOUNTER 2023-10-14 11:43 | Outpatient (CLI) | payer MEDICARE, SELFPAY ==
[2023-10-14 12:03] LABS: Basophils # 0.1 K/mm3 (0-0.2); Basophils % 0.9 % (0.1-2.0); Eosinophils # 0.2 K/mm3 (0.0-0.4); Eosinophils % 2.3 % (0.1-12.0); Hematocrit 36.2 % (37.0-47.0); Hemoglobin 11.6 g/dL (12.2-16.2); Lymphocytes % 14.5 % (10-50); Mean Corpuscular HGB Conc 31.9 g/dL (31.8-35.4); Mean Corpuscular Hemoglobin 29.7 pg (27.0-31.2); Mean Platelet Volume 7.8 fl (7.4-10.4); Monocytes # 0.4 K/mm3 (0.1-1.0); Monocytes % 5.8 % (1.7-9.3); Neutrophils % 76.4 % (37.0-80.0); Platelet Count 407 K/mm3 (142-424); Red Cell Distribution Width 18.6 % (11.5-17.5); White Blood Count 6.6 K/mm3 (4.8-10.8)
[2023-10-14 12:15] LABS: Hemoglobin A1C 6.7 % (4.0-6.0)
[2023-10-14 12:33] LABS: Alanine Aminotransferase 31 U/L (12-78); Albumin Level 3.8 g/dl (3.5-5.0); Albumin/Globulin Ratio 1.4 (1.1-1.8); Alkaline Phosphatase 67 U/L (38-126); Anion Gap 14.2 mEq/L (5-15); Aspartate Amino Transferase 30 U/L (14-36); Bilirubin,Total 0.4 mg/dl (0.2-1.3); Blood Urea Nitrogen 24 mg/dl (7-17); Calcium 9.5 mg/dl (8.4-10.2); Carbon Dioxide 24 mmol/L (22.0-30.0); Chloride 99 mmol/L (98-107); Estimated Glomerular Filt Rate 70 ml/min (>60); GFR (African American) 84 ML/MIN (>60); Globulin 2.8 g/dL (1.3-3.2); Glucose 239 mg/dl (74-100); Magnesium 1.7 mg/dl (1.6-2.3); Potassium 4.2 mmoL/L (3.5-5.1); Sodium 133 mmol/L (136-145); Total Protein,Serum 6.6 g/dl (6.3-8.2)
== END 2023-10-14 23:59 ==
LOC: LAB 11:44
PROVIDERS: PCP Internal Medicine; Visit Provider Internal Medicine
DX: D64.9 Anemia, unspecified (principal); E11.9 Type 2 diabetes mellitus without complications; E83.42 Hypomagnesemia
CPT/HCPCS: 36415; 80053; 83036; 83735; 85025

== ENCOUNTER 2023-11-20 13:59 | Outpatient (CLI) | payer MEDICARE, SELFPAY ==
[2023-11-20 14:19] LABS: Basophils # 0.1 K/mm3 (0-0.2); Eosinophils # 0.2 K/mm3 (0.0-0.4); Eosinophils % 3.9 % (0.1-12.0); Hematocrit 37.2 % (37.0-47.0); Hemoglobin 11.6 g/dL (12.2-16.2); Lymphocytes # 1.3 K/mm3 (0.7-4.5); Lymphocytes % 20.9 % (10-50); Mean Corpuscular HGB Conc 31.2 g/dL (31.8-35.4); Mean Corpuscular Hemoglobin 29.7 pg (27.0-31.2); Mean Platelet Volume 7.1 fl (7.4-10.4); Monocytes # 0.5 K/mm3 (0.1-1.0); Monocytes % 7.8 % (1.7-9.3); Neutrophils % 66.4 % (37.0-80.0); Platelet Count 425 K/mm3 (142-424); Red Blood Count 3.92 M/mm3 (4.20-5.40); Red Cell Distribution Width 17.4 % (11.5-17.5)
[2023-11-20 15:02] LABS: Alanine Aminotransferase 30 U/L (12-78); Albumin Level 3.9 g/dl (3.5-5.0); Albumin/Globulin Ratio 1.3 (1.1-1.8); Alkaline Phosphatase 52 U/L (38-126); Anion Gap 17.5 mEq/L (5-15); Aspartate Amino Transferase 32 U/L (14-36); Bilirubin,Total 0.4 mg/dl (0.2-1.3); Blood Urea Nitrogen 21 mg/dl (7-17); Calcium 9.8 mg/dl (8.4-10.2); Carbon Dioxide 24 mmol/L (22.0-30.0); Chloride 98 mmol/L (98-107); Estimated Glomerular Filt Rate 48 ml/min (>60); GFR (African American) 58 ML/MIN (>60); Globulin 2.9 g/dL (1.3-3.2); Glucose 120 mg/dl (74-100); Magnesium 1.6 mg/dl (1.6-2.3); Potassium 4.5 mmoL/L (3.5-5.1); Sodium 135 mmol/L (136-145); Total Protein,Serum 6.8 g/dl (6.3-8.2)
[2023-11-20 16:08] LABS: Vitamin B12 197 pg/mL (239-931)
[2023-11-20 16:23] LABS: Folate 9.08 ng/mL
[2023-11-20 17:11] LABS: Iron 81 ug/dL (37-170)
[2023-11-20 17:20] LABS: Total Iron Binding Capacity 424 ug/dL (265-497)
[2023-11-20 17:48] LABS: Ferritin 16.6 ng/ml (11.1-264)
== END 2023-11-20 23:59 | disposition home or self-care (01) ==
LOC: LAB 14:00
PROVIDERS: PCP Internal Medicine; Visit Provider Internal Medicine
DX: E83.42 Hypomagnesemia (principal); D64.9 Anemia, unspecified; E87.8 Other disorders of electrolyte and fluid balance, not elsewhere classified; Z68.38 Body mass index [BMI] 38.0-38.9, adult
CPT/HCPCS: 36415; 80053; 82607; 82728; 82746; 83540; 83550; 83735; 85025

== ENCOUNTER 2023-12-19 16:27 | Outpatient (CLI) | payer MEDICARE, SELFPAY ==
[2023-12-19 16:49] LABS: Basophils # 0.1 K/mm3 (0-0.2); Basophils % 0.7 % (0.1-2.0); Eosinophils # 0.4 K/mm3 (0.0-0.4); Eosinophils % 3.9 % (0.1-12.0); Hematocrit 34.9 % (37.0-47.0); Hemoglobin 11.1 g/dL (12.2-16.2); Lymphocytes # 1.2 K/mm3 (0.7-4.5); Lymphocytes % 10.7 % (10-50); Mean Corpuscular HGB Conc 31.7 g/dL (31.8-35.4); Mean Corpuscular Volume 91.6 fl (81-99); Mean Platelet Volume 7.1 fl (7.4-10.4); Monocytes # 0.5 K/mm3 (0.1-1.0); Monocytes % 4.9 % (1.7-9.3); Neutrophils # 8.8 K/mm3 (1.8-7.8); Neutrophils % 79.8 % (37.0-80.0); Platelet Count 505 K/mm3 (142-424); Red Blood Count 3.81 M/mm3 (4.20-5.40); Red Cell Distribution Width 16.3 % (11.5-17.5); White Blood Count 11.1 K/mm3 (4.8-10.8)
[2023-12-19 17:40] LABS: Alanine Aminotransferase 31 U/L (12-78); Albumin Level 3.6 g/dl (3.5-5.0); Albumin/Globulin Ratio 1.2 (1.1-1.8); Alkaline Phosphatase 69 U/L (38-126); Aspartate Amino Transferase 33 U/L (14-36); Bilirubin,Total 0.3 mg/dl (0.2-1.3); Blood Urea Nitrogen 28 mg/dl (7-17); Calcium 9.6 mg/dl (8.4-10.2); Carbon Dioxide 26 mmol/L (22.0-30.0); Chloride 96 mmol/L (98-107); Cholesterol 194 mg/dl (140-200); Estimated Glomerular Filt Rate 61 ml/min (>60); GFR (African American) 74 ML/MIN (>60); Glucose 183 mg/dl (74-100); Phosphorous 4.4 mg/dl (2.5-4.5); Total Protein,Serum 6.6 g/dl (6.3-8.2); Triglycerides 276 mg/dl (30-150); VLDL Cholesterol 55 mg/dL (0-40)
[2023-12-19 17:51] LABS: Direct LDL Cholesterol 104.15 mg/dL (100-129)
[2023-12-19 17:57] LABS: 25-OH Vitamin D, Total 54.5 ng/mL (30-100)
[2023-12-19 18:03] LABS: Anion Gap 16.5 mEq/L (5-15); Chol/HDL Ratio 4.6 (1-3.5); HDL Cholesterol 42 mg/dl (40-60); Magnesium 1.6 mg/dl (1.6-2.3); Potassium 4.5 mmoL/L (3.5-5.1); Sodium 134 mmol/L (136-145)
[2023-12-19 18:19] LABS: Free T4 (Free Thyroxine) 1.14 ng/dl (0.78-2.19)
[2023-12-19 18:33] LABS: Thyroid Stimulating Hormone 2.42 uIU/mL (0.465-4.68)
[2023-12-19 18:52] LABS: Vitamin B12 611 pg/mL (239-931)
[2023-12-19 19:58] LABS: Iron 49 ug/dL (37-170)
[2023-12-19 20:08] LABS: Total Iron Binding Capacity 344 ug/dL (265-497)
[2023-12-19 20:35] LABS: Ferritin 45.2 ng/ml (11.1-264)
== END 2023-12-19 23:59 | disposition home or self-care (01) ==
LOC: LAB 16:28
PROVIDERS: PCP Internal Medicine; Visit Provider Nurse Practitioner Family
DX: R53.83 Other fatigue (principal); E11.9 Type 2 diabetes mellitus without complications; E55.9 Vitamin D deficiency, unspecified; Z79.84 Long term (current) use of oral hypoglycemic drugs
CPT/HCPCS: 36415; 80053; 80061; 82306; 82607; 82728; 83540; 83550; 83735; 84100; 84439; 84443; 85025

== ENCOUNTER 2024-02-04 12:45 | Outpatient (CLI) | payer MEDICARE, SELFPAY ==
[2024-02-04 13:58] LABS: Basophils % 0.3 % (0.1-2.0); Eosinophils % 0.5 % (0.1-12.0); Hematocrit 27.8 % (37.0-47.0); Hemoglobin 9.2 g/dL (12.2-16.2); Lymphocytes # 0.6 K/mm3 (0.7-4.5); Lymphocytes % 17.1 % (10-50); Mean Corpuscular HGB Conc 33.1 g/dL (31.8-35.4); Mean Corpuscular Hemoglobin 31.6 pg (27.0-31.2); Mean Corpuscular Volume 95.5 fl (81-99); Mean Platelet Volume 8.5 fl (7.4-10.4); Monocytes # 0.2 K/mm3 (0.1-1.0); Monocytes % 6.8 % (1.7-9.3); Neutrophils # 2.6 K/mm3 (1.8-7.8); Neutrophils % 75.2 % (37.0-80.0); Platelet Count 89 K/mm3 (142-424); Red Blood Count 2.91 M/mm3 (4.20-5.40); Red Cell Distribution Width 21.7 % (11.5-17.5); White Blood Count 3.5 K/mm3 (4.8-10.8)
[2024-02-04 14:27] LABS: Alanine Aminotransferase 30 U/L (12-78); Albumin Level 3.7 g/dl (3.5-5.0); Albumin/Globulin Ratio 1.4 (1.1-1.8); Alkaline Phosphatase 79 U/L (38-126); Anion Gap 15.4 mEq/L (5-15); Aspartate Amino Transferase 31 U/L (14-36); Bilirubin,Total 0.5 mg/dl (0.2-1.3); Blood Urea Nitrogen 21 mg/dl (7-17); Calcium 9.3 mg/dl (8.4-10.2); Carbon Dioxide 26 mmol/L (22.0-30.0); Chloride 97 mmol/L (98-107); Estimated Glomerular Filt Rate 70 ml/min (>60); GFR (African American) 84 ML/MIN (>60); Globulin 2.7 g/dL (1.3-3.2); Glucose 227 mg/dl (74-100); Potassium 4.4 mmoL/L (3.5-5.1); Sodium 134 mmol/L (136-145); Total Protein,Serum 6.4 g/dl (6.3-8.2)
== END 2024-02-04 23:59 | disposition home or self-care (01) ==
PROVIDERS: PCP Internal Medicine; Visit Provider Obstetrics & Gynecology Gynecologic Oncology
DX: C54.1 Malignant neoplasm of endometrium (principal)
CPT/HCPCS: 36415; 80053; 85025

== ENCOUNTER 2024-02-10 14:07 | Outpatient (CLI) | payer MEDICARE, SELFPAY ==
[2024-02-10 14:41] LABS: Basophils % 0.2 % (0.1-2.0); Eosinophils % 0.8 % (0.1-12.0); Hematocrit 26.3 % (37.0-47.0); Hemoglobin 8.6 g/dL (12.2-16.2); Lymphocytes # 0.6 K/mm3 (0.7-4.5); Mean Corpuscular HGB Conc 32.7 g/dL (31.8-35.4); Mean Corpuscular Hemoglobin 31.6 pg (27.0-31.2); Mean Corpuscular Volume 96.5 fl (81-99); Mean Platelet Volume 9.2 fl (7.4-10.4); Monocytes # 0.3 K/mm3 (0.1-1.0); Monocytes % 8.2 % (1.7-9.3); Neutrophils # 2.8 K/mm3 (1.8-7.8); Neutrophils % 75.7 % (37.0-80.0); Platelet Count 122 K/mm3 (142-424); Red Blood Count 2.72 M/mm3 (4.20-5.40); White Blood Count 3.8 K/mm3 (4.8-10.8)
[2024-02-10 14:51] LABS: Alanine Aminotransferase 32 U/L (12-78); Albumin Level 3.7 g/dl (3.5-5.0); Albumin/Globulin Ratio 1.1 (1.1-1.8); Alkaline Phosphatase 69 U/L (38-126); Anion Gap 14.4 mEq/L (5-15); Aspartate Amino Transferase 31 U/L (14-36); Bilirubin,Total 0.7 mg/dl (0.2-1.3); Blood Urea Nitrogen 28 mg/dl (7-17); Calcium 9.2 mg/dl (8.4-10.2); Carbon Dioxide 27 mmol/L (22.0-30.0); Chloride 93 mmol/L (98-107); Estimated Glomerular Filt Rate 48 ml/min (>60); GFR (African American) 58 ML/MIN (>60); Globulin 3.4 g/dL (1.3-3.2); Glucose 301 mg/dl (74-100); Potassium 4.4 mmoL/L (3.5-5.1); Sodium 130 mmol/L (136-145); Total Protein,Serum 7.1 g/dl (6.3-8.2)
== END 2024-02-10 23:59 | disposition home or self-care (01) ==
LOC: LAB 14:08
PROVIDERS: PCP Internal Medicine; Visit Provider Obstetrics & Gynecology Gynecologic Oncology
DX: C56.1 Malignant neoplasm of right ovary (principal)
CPT/HCPCS: 36415; 80053; 85025

== ENCOUNTER 2024-02-18 14:59 | Outpatient (CLI) | payer MEDICARE, SELFPAY ==
[2024-02-18 15:42] LABS: Basophils % 0.3 % (0.1-2.0); Eosinophils % 0.5 % (0.1-12.0); Hematocrit 24.3 % (37.0-47.0); Lymphocytes # 0.4 K/mm3 (0.7-4.5); Lymphocytes % 8.9 % (10-50); Mean Corpuscular HGB Conc 32.9 g/dL (31.8-35.4); Mean Corpuscular Hemoglobin 32.6 pg (27.0-31.2); Mean Corpuscular Volume 98.8 fl (81-99); Mean Platelet Volume 8.6 fl (7.4-10.4); Monocytes # 0.1 K/mm3 (0.1-1.0); Monocytes % 3.6 % (1.7-9.3); Neutrophils # 3.5 K/mm3 (1.8-7.8); Neutrophils % 86.7 % (37.0-80.0); Platelet Count 177 K/mm3 (142-424); Red Blood Count 2.46 M/mm3 (4.20-5.40); Red Cell Distribution Width 21.6 % (11.5-17.5)
[2024-02-18 15:44] LABS: MANUAL DIFFERENTIAL MANUAL DIFFERENTIAL (MANUAL DIFF)
[2024-02-18 15:57] LABS: Eosinophils % 1 % (0-3); Lymphocytes % 15 % (10-50); Monocytes % 8 % (2-9); Neutrophils % 76 % (42-76); Platelet Estimate Normal; RBC Morphology Normal; Total Cells Counted 100
[2024-02-18 16:21] LABS: Alanine Aminotransferase 30 U/L (12-78); Albumin Level 2.8 g/dl (3.5-5.0); Alkaline Phosphatase 92 U/L (38-126); Aspartate Amino Transferase 37 U/L (14-36); Bilirubin,Total 0.5 mg/dl (0.2-1.3); Blood Urea Nitrogen 37 mg/dl (7-17); Calcium 7.7 mg/dl (8.4-10.2); Carbon Dioxide 24 mmol/L (22.0-30.0); Chloride 89 mmol/L (98-107); Estimated Glomerular Filt Rate 48 ml/min (>60); GFR (African American) 58 ML/MIN (>60); Globulin 2.8 g/dL (1.3-3.2); Glucose 334 mg/dl (74-100); Sodium 126 mmol/L (136-145); Total Protein,Serum 5.6 g/dl (6.3-8.2)
== END 2024-02-18 23:59 | disposition home or self-care (01) ==
LOC: LAB 15:00
PROVIDERS: PCP Internal Medicine; Visit Provider Obstetrics & Gynecology Gynecologic Oncology
DX: C54.1 Malignant neoplasm of endometrium (principal)
CPT/HCPCS: 36415; 80053; 85007; 85025; 85027

== ENCOUNTER 2024-02-24 10:47 | Outpatient (CLI) | payer MEDICARE, SELFPAY ==
--- NOTE | 2024-02-24 10:51 | XR_ITS ---
FINAL REPORT CLINICAL HISTORY: dyspnea COMPARISON: 07/28/2023 FINDINGS: 2 views of the chest were obtained . There is mild cardiomegaly. Scarring is seen at the lung bases, right greater than left. Lungs are otherwise clear. There is no pneumothorax. IMPRESSION: No acute cardiopulmonary process. Reviewed, Interpreted and Dictated by Calvin Delarosa MD Transcribed by Marilyn Busby Authenticated and [facility]
[2024-02-24 11:30] LABS: Basophils % 0.1 % (0.1-2.0); Eosinophils % 0.3 % (0.1-12.0); Hematocrit 23.5 % (37.0-47.0); Hemoglobin 7.4 g/dL (12.2-16.2); Lymphocytes # 0.4 K/mm3 (0.7-4.5); Lymphocytes % 7.1 % (10-50); Mean Corpuscular HGB Conc 31.5 g/dL (31.8-35.4); Mean Corpuscular Hemoglobin 31.7 pg (27.0-31.2); Mean Corpuscular Volume 100.5 fl (81-99); Mean Platelet Volume 10.2 fl (7.4-10.4); Monocytes # 0.3 K/mm3 (0.1-1.0); Monocytes % 4.5 % (1.7-9.3); Neutrophils # 4.8 K/mm3 (1.8-7.8); Neutrophils % 87.9 % (37.0-80.0); Platelet Count 71 K/mm3 (142-424); Red Blood Count 2.34 M/mm3 (4.20-5.40); Red Cell Distribution Width 22.2 % (11.5-17.5); White Blood Count 5.4 K/mm3 (4.8-10.8)
[2024-02-24 11:36] LABS: MANUAL DIFFERENTIAL MANUAL DIFFERENTIAL (MANUAL DIFF)
[2024-02-24 11:54] LABS: Lymphocytes % 8 % (10-50); Monocytes % 2 % (2-9); Neutrophils % 89 % (42-76); Total Cells Counted 100
[2024-02-24 11:55] LABS: Hypochromasia 1+; Macrocytosis 1+; Platelet Estimate Moderate Decrease
[2024-02-24 12:02] LABS: Magnesium 1.7 mg/dl (1.6-2.3)
[2024-02-24 12:03] LABS: Alanine Aminotransferase 33 U/L (12-78); Albumin Level 2.5 g/dl (3.5-5.0); Albumin/Globulin Ratio 0.8 (1.1-1.8); Alkaline Phosphatase 155 U/L (38-126); Anion Gap 14.1 mEq/L (5-15); Aspartate Amino Transferase 38 U/L (14-36); Bilirubin,Total 1.1 mg/dl (0.2-1.3); Blood Urea Nitrogen 35 mg/dl (7-17); Calcium 8.3 mg/dl (8.4-10.2); Carbon Dioxide 29 mmol/L (22.0-30.0); Chloride 85 mmol/L (98-107); Estimated Glomerular Filt Rate 54 ml/min (>60); GFR (African American) 65 ML/MIN (>60); Globulin 3.1 g/dL (1.3-3.2); Glucose 295 mg/dl (74-100); Potassium 4.1 mmoL/L (3.5-5.1); Sodium 124 mmol/L (136-145); Total Protein,Serum 5.6 g/dl (6.3-8.2)
== END 2024-02-24 23:59 | disposition home or self-care (01) ==
PROVIDERS: Obstetrics & Gynecology Gynecologic Oncology; PCP Internal Medicine; Visit Provider Obstetrics & Gynecology
DX: E83.42 Hypomagnesemia (principal); C54.1 Malignant neoplasm of endometrium; J90 Pleural effusion, not elsewhere classified; R06.02 Shortness of breath
CPT/HCPCS: 36415; 71046; 80053; 83735; 85007; 85025; 85027

== ENCOUNTER 2024-02-25 11:38 | Outpatient (CLI) | payer MEDICARE, SELFPAY | END 2024-02-25 23:59 | disposition home or self-care (01) | LOC: LAB 11:39 | PROVIDERS: PCP Internal Medicine; Visit Provider Nurse Practitioner Family | DX: D64.9 Anemia, unspecified (principal) | CPT/HCPCS: 36415; 86850 ==

== ENCOUNTER 2024-02-26 10:33 | Outpatient (CLI) | payer MEDICARE, SELFPAY ==
[2024-02-26] VITALS (10 sets, daily range): BP systolic 119–139; BP diastolic 66–78; PULSE 80–95; RESP 16; TEMP 36–36.2; O2SAT 96–98
[2024-02-26] MEDS: 0.9 % SODIUM CHLORIDE 250 ML 100 ML IV (11:04)
== END 2024-02-26 14:05 | disposition home or self-care (01) ==
LOC: INF 10:35
PROVIDERS: PCP Internal Medicine; Visit Provider Nurse Practitioner Family
DX: D64.9 Anemia, unspecified (principal)
CPT/HCPCS: 36430; P9016

== ENCOUNTER 2024-03-04 11:00 | Emergency (ER) | payer MEDICARE, SELFPAY ==
[2024-03-04] VITALS (10 sets, daily range): BP systolic 116–136; BP diastolic 60–81; PULSE 94–102; RESP 18–29; TEMP 36.6; O2SAT 94–98; BMI 33.4
--- NOTE | 2024-03-04 11:02 | ECG_ITS ---
APPROVED REPORT Exam: Resting ECG HR:104 bpm ECG Measurements Heart Rate 104 AXES DC 140 P 58 QRSd 97 QRS 25 QT 321 T 60 QTc 382 Conclusion SINUS TACHYCARDIA POSSIBLE RIGHT ATRIAL ENLARGEMENT [0.25mV P-WAVE] POSSIBLE LEFT ATRIAL ENLARGEMENT [-0.1mV P-WAVE IN V1/V2] ABNORMAL RHYTHM ECG UNCONFIRMED REPORT Electronically signed by : Theodore Luis, 03/04/2024 11:18:32
--- NOTE | 2024-03-04 11:07 | PC.NURSE ---
DR RUIZ AT BEDSIDE
--- NOTE | 2024-03-04 11:13 | XR_ITS ---
FINAL REPORT CLINICAL HISTORY: chest pain, left sided started today COMPARISON: 02/24/2024 FINDINGS: The heart size is mildly enlarged. The mediastinum is normal. There is abnormal linear opacity in the right lung base. Blunting of the right costophrenic angle is noted. Findings are consistent with pleural and parenchymal scarring but not significantly changed from prior. There is no pneumothorax. There is no osseous abnormality. IMPRESSION: No significant change in pleural and parenchymal scarring. Reviewed, Interpreted and Dictated by Calvin Delarosa MD Transcribed by Rea Erwin Authenticated and [facility]
--- NOTE | 2024-03-04 11:14 | HMH.EDGENADL ---
Discharge Plan Disposition Patient Disposition: Home, Self-Care Prescriptions Prescriptions: No Action simvastatin 20 mg tablet 20 mg PO QHS Caltrate 600 plus D 600 mg (1,500 mg)-800 unit tablet,chewable 1 tab PO BID cholecalciferol (vitamin D3) 5,000 unit capsule 5,000 unit PO DAILY cranberry 500 mg capsule 500 mg PO BID irbesartan 150 mg tablet 150 mg PO DAILY nystatin 100,000 unit/gram cream 1 applic topical DAILY Qty: 30 0RF (DME) blood-glucose meter Kit See Rx Instructions .ROUTE .MEDSUPPLY Qty: 1 0RF Rx Instructions: As directed (DME) blood-glucose meter Kit See Rx Instructions .ROUTE .MEDSUPPLY Qty: 1 0RF Rx Instructions: as directed or bid the one that her Insurance will pay for with lancets and strips Jardiance 25 mg tablet 25 mg PO DAILY Qty: 30 2RF (DME) Blood Glucose Test Strip See Rx Instructions .ROUTE .MEDSUPPLY Qty: 50 10RF Rx Instructions: Once daily (DME) lancets Misc See Rx Instructions .Route Qty: 100 10RF Rx Instructions: As directed (DME) lancets [Accu-Chek Softclix Lancets] Misc See Rx Instructions .Route Qty: 100 3RF Rx Instructions: Check bs 3 times daily and PRN sennosides [Senna Lax] 8.6 mg tablet See Rx Instructions .ROUTE .COMPLEX Qty: 30 1RF Dose Instruction: TAKE 1 TABLET BY MOUTH TWICE DAILY NEEDED FOR CONSTIPATION Rx Instructions: TAKE 1 TABLET BY MOUTH TWICE DAILY NEEDED FOR CONSTIPATION isopropyl alcohol 70 % swab 1 ea topical WEEKLY Qty: 75 1RF (DME) BD SafetyGlide Syringe 3 mL 25 gauge x 1 syringe See Rx Instructions .Route Qty: 50 0RF Rx Instructions: weekly use for B12 injection duloxetine 30 mg capsule,delayed release(DR/EC) 30 mg PO DAILY Qty: 90 1RF hydrochlorothiazide 12.5 mg tablet See Rx Instructions .ROUTE .COMPLEX Qty: 90 1RF Dose Instruction: TAKE 1 TABLET BY MOUTH ONCE DAILY Rx Instructions: TAKE 1 TABLET BY MOUTH ONCE DAILY hydroxyzine pamoate 25 mg capsule See Rx Instructions .ROUTE .COMPLEX Qty: 30 2RF Dose Instruction: TAKE 1 CAPSULE BY MOUTH EVERY SIX HOURS FOR ANXIETY Rx Instructions: TAKE 1 CAPSULE BY MOUTH EVERY SIX HOURS FOR ANXIETY cyanocobalamin (vitamin B-12) 1,000 mcg/mL solution See Rx Instructions .ROUTE .COMPLEX Qty: 10 5RF Dose Instruction: INJECT 1000 MCG (1 ML) INTRAMUSCULARLY WEEKLY Rx Instructions: INJECT 1000 MCG (1 ML) INTRAMUSCULARLY WEEKLY nabumetone 500 mg tablet See Rx Instructions .ROUTE .COMPLEX Qty: 90 0RF Dose Instruction: TAKE 2 TABLETS BY MOUTH ONCE DAILY WITH FOOD Rx Instructions: TAKE 2 TABLETS BY MOUTH ONCE DAILY WITH FOOD oxycodone 5 mg tablet 5 mg PO Q6HP PRN (Reason: pain) Qty: 90 0RF gabapentin 600 mg tablet 600 mg PO TID Qty: 90 5RF promethazine-DM 6.25-15 mg/5 mL syrup 5 ml PO Q4-6H PRN (Reason: cough) Qty: 473 0RF cholecalciferol (vitamin D3) 1,250 mcg (50,000 unit) capsule 1,250 mcg PO WEEKLY Qty: 12 1RF metformin 500 mg tablet extended release 24 hr 1,000 mg PO BID Qty: 120 5RF dextromethorphan HBr 15 mg/5 mL liquid 30 mg PO Q6H PRN (Reason: cough) 10 Days Qty: 118 0RF magnesium oxide 400 mg (241.3 mg magnesium) tablet 800 mg PO BID enoxaparin 40 MG/0.4 ML syringe 40 mg SQ HS prochlorperazine maleate 10 MG tablet 10 mg PO Q6HP PRN (Reason: n/v) latanoprost (PF) 7.5 ML drops 1 applic OP HS Referrals Follow up/Referrals: Provider,Referral, MD [Referring] - See instructions Activity Restrictions/Add. Instructions Additional Instructions/Restrictions: Follow-up with oncologist and primary care doctor. Continue pain regimen at home. Please return to the emerged part with any new, concerning, or worsening symptoms. Clinical Impressions Clinical Impression: Chest pain Qualifiers: Chest pain type: unspecified Qualifi
[2024-03-04 11:20] LABS: Basophils % 0.2 % (0.1-2.0); Eosinophils # 0.1 K/mm3 (0.0-0.4); Hematocrit 26.1 % (37.0-47.0); Lymphocytes # 0.4 K/mm3 (0.7-4.5); Lymphocytes % 6.6 % (10-50); Mean Corpuscular HGB Conc 30.8 g/dL (31.8-35.4); Mean Corpuscular Hemoglobin 31.2 pg (27.0-31.2); Mean Corpuscular Volume 101.5 fl (81-99); Mean Platelet Volume 10.1 fl (7.4-10.4); Monocytes # 0.3 K/mm3 (0.1-1.0); Monocytes % 4.4 % (1.7-9.3); Neutrophils % 87.7 % (37.0-80.0); Platelet Count 67 K/mm3 (142-424); Red Blood Count 2.57 M/mm3 (4.20-5.40); Red Cell Distribution Width 20.6 % (11.5-17.5); White Blood Count 5.7 K/mm3 (4.8-10.8)
--- NOTE | 2024-03-04 11:22 | PC.NURSE ---
XR AT BEDSIDE
[2024-03-04 11:27] LABS: MANUAL DIFFERENTIAL MANUAL DIFFERENTIAL (MANUAL DIFF)
[2024-03-04 11:31] LABS: Albumin Level 3.2 g/dl (3.5-5.0); Chloride 88 mmol/L (98-107); Sodium 127 mmol/L (136-145)
[2024-03-04 11:32] LABS: Potassium 4.5 mmoL/L (3.5-5.1)
[2024-03-04 11:34] LABS: Alanine Aminotransferase 34 U/L (12-78); Anion Gap 11.5 mEq/L (5-15); Aspartate Amino Transferase 43 U/L (14-36); Blood Urea Nitrogen 34 mg/dl (7-17); Carbon Dioxide 32 mmol/L (22.0-30.0); Creatinine Clearance Estimated 69 mL/min (50-200); Estimated Glomerular Filt Rate 48 ml/min (>60); GFR (African American) 58 ML/MIN (>60)
[2024-03-04 11:35] LABS: Albumin/Globulin Ratio 0.8 (1.1-1.8); Alkaline Phosphatase 142 U/L (38-126); Calcium 9.2 mg/dl (8.4-10.2); Globulin 4.1 g/dL (1.3-3.2); Glucose 292 mg/dl (74-100); Total Protein,Serum 7.3 g/dl (6.3-8.2)
[2024-03-04 11:40] LABS: Eosinophils % 1 % (0-3); Lymphocytes % 4 % (10-50); Monocytes % 6 % (2-9); Neutrophils % 89 % (42-76); Platelet Estimate Marked Decrease; RBC Morphology Normal; Total Cells Counted 100
[2024-03-04 11:44] LABS: NT Pro Brain Natriuretic Pep. 454 pg/mL (0-450)
[2024-03-04 11:57] LABS: Troponin I < 0.01 ng/ml (0.00-0.034)
[2024-03-04 12:03] LABS: Activated Partial Thrombo Time 29.4 seconds (22.8-30.6); INR 1.22 (0.9-1.1); Prothrombin Time 13.4 seconds (10.1-12.5)
--- NOTE | 2024-03-04 12:21 | CT_ITS ---
FINAL REPORT TECHNIQUE: The patient was injected with IV contrast. Axial images were obtained through the chest in a PE protocol. 3-D reconstruction images were also performed. Individualized dose reduction techniques using automated exposure control or adjustment of the MA and/or KV according to patient's size were employed. CLINICAL HISTORY: chest pain, suspect PE, cancer COMPARISON: 07/28/2023 FINDINGS: Mediastinal vasculature is adequately opacified. No pulmonary artery filling defects are identified to suggest PE. There is no aortic dissection. There are multiple right paratracheal nodes, measuring up to 2.7 cm in diameter, as well as a subcarinal node that measures 3.1 cm in diameter. There is a lobular mass in the medial right apex measuring 3.1 x 3.6 cm in size. The heart size is normal. There are bilateral pleural effusions present, that were also present on the prior exam of July 2023. The right effusion is significantly smaller than on the prior exam. Patchy bibasilar consolidation is present, greater on the right than on the left, similar to the previous exam. There are nodular opacities in the right upper lobe that measure approximately 10 mm in diameter, best seen on images #52 and 63 of series 5. These nodular opacities are smaller than seen on the prior CT. Limited images of the upper abdomen are unremarkable. IMPRESSION: No pulmonary embolus or dissection. Multiple large right paratracheal nodes and a subcarinal node that measures 3.1 cm in diameter. There is a lobular mass in the medial right apex as described. There are also bilateral pleural effusions present, the right significantly smaller than seen on the prior exam. Patchy bibasilar consolidation is present, greater on the right than on the left, similar to the prior exam. There are nodular opacities in the right upper lobe that are somewhat smaller than seen on the prior CT. Reviewed, Interpreted and Dictated by Calvin Delarosa MD Transcribed by Macie Zapata Authenticated and [facility]
--- NOTE | 2024-03-04 13:13 | PC.NURSE ---
DR RUIZ UPDATING FAMILY AT THIS TIME
[2024-03-04 14:23] LABS: Troponin I < 0.01 ng/ml (0.00-0.034)
--- NOTE | 2024-03-04 14:24 | PC.NURSE ---
ASSISTED TO BR AND BACK
== END 2024-03-04 14:35 | disposition home or self-care (01) ==
PROVIDERS: Emergency Provider Student in an Organized Health Care Education/Training Program; PCP Internal Medicine
DX: R07.9 Chest pain, unspecified (principal); R06.02 Shortness of breath; R00.0 Tachycardia, unspecified; E87.1 Hypo-osmolality and hyponatremia; R05.1 Acute cough; E11.65 Type 2 diabetes mellitus with hyperglycemia; Z86.711 Personal history of pulmonary embolism; Z79.01 Long term (current) use of anticoagulants; Z85.42 Personal history of malignant neoplasm of other parts of uterus; C78.00 Secondary malignant neoplasm of unspecified lung; Z92.21 Personal history of antineoplastic chemotherapy; Z79.84 Long term (current) use of oral hypoglycemic drugs
CPT/HCPCS: 71045; 71275; 80053; 83880; 84484; 85007; 85025; 85027; 85610; 85730; 86850; 93005; 96372; 99285; J1170; Q9967